=== PATIENT | female | born 1965 | race Caucasian/White ===

== ENCOUNTER 2018-09-14 16:49 | Inpatient (IN) ==
[2018-09-14] MEDS ORDERED: ONDANSETRON INJ 2 MG/ML 2 ML VIAL IV STA (17:24)
[2018-09-14] MEDS ORDERED: SODIUM CHLORIDE 0.9% 500 ML IV SCH (17:30)
[2018-09-14 17:56] LABS: Mean Corpuscular Hgb Conc 34.3 g/dL (32-36)
[2018-09-14 18:03] LABS: Albumin Level 2.5 gm/dl (3.4-5.0); BUN Creatinine Ratio 7.8 (10-20); Calcium 8.4 mg/dl (8.5-10.1); Creatinine Clr Calc Pharmacy 72.4 ml/min; Est GFR (African American) 98.4; Est GFR (Non-African American) 84.9
[2018-09-14 18:06] LABS: Albumin Globulin Ratio 0.5 (0.9-2); Bilirubin,Total 0.7 mg/dl (0.2-1); Globulin 4.8 gm/dl (2.5-4.0); Total Protein 7.3 gm/dl (6.4-8.2)
[2018-09-14 18:28] LABS: Hematocrit (blood only) 32.7 % (37-47); Hemoglobin 11.2 g/dL (12.0-16.0); Mean Corpuscular Hemoglobin 26.7 pg (25-34); Mean Corpuscular Volume 77.9 fL (80-100); RDW Coefficient of Variation 14.6 % (11.5-14.5); RDW Standard Deviation 41.2 fL (36.4-46.3); White Blood Count 7.23 K/uL (4.8-10.8)
[2018-09-14 18:29] LABS: Mean Platelet Volume 11.4 fL (7.4-10.4); Platelet Count 94 K/uL (130-400)
[2018-09-14 18:30] LABS: Basophils # (auto) 0.05 K/uL (0-0.2); Basophils % (auto) 0.7 %; Eosinophils # (auto) 0.02 K/uL (0-0.5); Eosinophils % (auto) 0.3 %; Immature Granulocytes % (auto) 4.1 %; Lymphocytes # (auto) 3.43 K/uL (1.2-3.4); Lymphocytes % (auto) 47.4 %; Monocytes # (auto) 1.16 K/uL (0.11-0.59); Neutrophils # (auto) 2.27 K/uL (1.4-6.5); Neutrophils % (auto) 31.5 %; Nucleated RBC % (auto) 1.4 %; Platelet Estimate Decreased (Normal)
[2018-09-14] MEDS ORDERED: IOVERSOL 100ml IV PRN (19:12)
--- NOTE | 2018-09-14 19:31 | CT Scan Report ---
ABDOMEN AND PELVIS CT WITH IV CONTRAST CT DOSE: 368.41 mGy.cm HISTORY: Generalized abdominal pain. TECHNIQUE: Multiaxial CT images of the abdomen and pelvis were performed following the use of intrave nous contrast. A dose lowering technique was utilized adhering to the principles of ALARA. COMPARISON STUDY: None. FINDINGS: A 4 mm subpleural nodule within the left lower lobe on image 73. Trace bilateral pleural ef fusions. No pneumoperitoneum. No pneumatosis. No suspicious lytic or blastic osseous lesions. The francesca er, spleen, adrenal glands, pancreas, and kidneys are unremarkable. No hydronephrosis. There is mild inflammatory change/edema at the gallbladder neck. There is also trace pericholecystic fluid. The gonzález n portal vein is patent. Normal caliber common bile duct. No retroperitoneal lymphadenopathy. The mohit dder is not well-distended but appears unremarkable. The uterus and bilateral adnexa are within maddie l limits. Trace pelvic free fluid which may be physiologic. No bowel wall thickening or obstruction. Normal appendix. IMPRESSION: 1. There is mild inflammatory change/edema at the gallbladder neck. There is also trace pericholecyst ic fluid. This is nonspecific and could be due to periportal edema in the setting of a diffuse edemat ous state given the trace bilateral pleural effusions. However, clinical correlation recommended to a ssess for the possibility of a developing acute cholecystitis. 2. No bowel wall thickening or obstruction. 3. Normal appendix. 4. Trace pelvic free fluid. This may be physiologic. 5. A 4 mm subpleural nodule within the left lower lobe. Please refer to below summary of Fleischner criteria recommendations for follow-up of incidental CT n odules (Marcus Engel, Guidelines for management of small pulmonary nodules detected on CT scans: A sta tement from the Fleischner Society, Radiology 237: [phone].) SOLID NODULES Solitary nodule size: <6 mm * Low risk patients: no follow-up needed * high risk patients: optional CT at 12 months Solitary nodule size: 6-8 mm * Low risk patients: follow-up at 6-12 months, then consider further follow-up at 18-24 months * high risk patients: initial follow-up CT at 6-12 months and then at 18-24 months if no change Solitary nodule size: >8 mm * either low or high risk patients - consider follow-up CT at 3 months, and/or CT-PET, and/or biopsy Multiple nodules size: <6 mm * Low risk patients: no routine follow-up * high risk patients: optional CT at 12 months Multiple nodules size: 6-8 mm * Low risk patients: follow-up at 3-6 months, then consider further follow-up at 18-24 months * high risk patients: follow-up at 3-6 months, then at 18-24 months if no change Multiple nodules size: >8 mm * Low risk patients: follow-up at 3-6 months, then consider further follow-up at 18-24 months * high risk patients: follow-up at 3-6 months, then at 18-24 months if no change Note: newly detected indeterminate nodule in persons 35 years of age or older. * Low risk patients: minimal or absent history of smoking and/or other known risk factors * high risk patients: history of smoking or of other known risk factors (e.g. first degree relative with lung cancer, or exposure to asbestos, radon, uranium) * if a nodule up to 8 mm is partly solid or is ground glass further follow-up is required after 24 m onths to exclude possible slow growing adenocarcinoma (ALFREDO) SUBSOLID NODULES Solitary pure ground-glass nodule * nodule size <6 mm - no CT follow-up required * nodule size >=6 mm - follow-up CT at 6-12 months, then every 2 years until 5 years Solitary part-solid nodule * nodule size <6 mm - no CT follow-up required * nodule size >=6 mm - follow-up CT at 3-6 months. If unchanged, and solid component remains <6 mm, then annual follow-up for 5 years Multiple subsolid nodules * nodule size <6 mm - follow-up CT at 3-6 months, consider further follow-up at 2 and 4 years if sta ble * nodule size >=6 mm - follow-up CT at 3-6 months, subsequent management based on the most suspiciou s nodule(s) Electronically signed by: Ej Justice M.D. 09/14/2018 7:30 PM
[2018-09-14] MEDS ORDERED: PIPERACILL/TAZOBAC CONSULT ACTIVE PRN (20:06)
[2018-09-14] MEDS ORDERED: PIPERACILLIN/TAZOBACTAM 4.5 GM/120 ML BAG IV ONE (20:06)
--- NOTE | 2018-09-14 20:20 | Surgery Consultation ---
Date of Consultation September 14, 2018 Assessment & Plan (1) Nausea & vomiting: Patient with nausea vomiting abdominal pain abnormal liver function studies with fever dermal white blood cell count And severe lethargy. Does not appear this is coming from severe acute cholecystitis. Is possibly more intrinsic paddock disease or common bile duct disease (likely ) also interesting is her thrombocytopenia. She is going to be admitted by the hospitalist most likely will need a GI evaluation. Could consider HIDA scan and MRCP but I will wait for thoughts from GI. History of Present Illness History of Present Illness Patient presents to the emergency room with 9 days of feeling ill. He has had nausea and vomiting for 5 to 6 days has developed lethargy. He does have some upper abdominal pain with right and left upper quadrant. Liver function studies including AST ALT Alk Phos and lipase are all elevated total bilirubin is normal. White blood cell count is normal he has no left shift. Apparently she has had fever over [address] scan shows periportal edema mild fluid. Gallbladder is not significantly distended minimal thickening. Allergies Allergy/AdvReac Type Severity Reaction Status Date / Time No Known Allergies Allergy Unverified 09/14/18 17:48 Home Medications Home Medications Medication Instructions Recorded Confirmed Type Diapro 30 mg PO QAM 09/14/18 09/14/18 History Domperidone 10 mg PO QAM 09/14/18 09/14/18 History amitriptyline 10 mg PO HS 09/14/18 09/14/18 History bisoprolol fumarate 5 mg PO DAILY 09/14/18 09/14/18 History cefixime 200 mg PO Q12H 09/14/18 09/14/18 History fluoxetine 20 mg PO DAILY 09/14/18 09/14/18 History lansoprazole 30 mg PO QAM 09/14/18 09/14/18 History metronidazole [Flagyl] 0 mg PO BID 09/14/18 09/14/18 History olmesartan 40 mg PO QPM 09/14/18 09/14/18 History ondansetron HCl [Zofran] 4 mg PO TID PRN 09/14/18 09/14/18 History sitagliptin-metformin 1 tab PO QPM 09/14/18 09/14/18 History Patient History Medical History Diabetes Hypertension Family History Other No pertinent family history in first degree relatives Social History Feels Safe at Home: Yes Smoking Status: Never smoker Review of Systems Review of Systems: All systems reviewed & are unremarkable except as noted in HPI & below Physical Exam Physical Exam: She is currently in her emergency room bed appears ill somewhat lethargic. Sclera are anicteric and appears normal color possibly pale mucous membranes are dry. He appears to be breathing comfortably Her heart rate is normal her abdomen is soft he does have some discomfort in the upper abdomen to palpation left greater than right. Results & Data Vital Signs (Past 12 Hours) Vital Signs Temp Pulse Pulse Resp BP BP Pulse Ox 09/14/18 19:51 62 17 112/74 96 09/14/18 17:47 95 09/14/18 17:46 63 18 155/72 H 96 09/14/18 17:02 37.2 C 83 20 134/78 97 I did review the CAT scan
[2018-09-14 20:34] LABS: Appearance Urine Clear (Clear); Bilirubin Urine Negative (Negative); Blood Urine Negative (Negative); Color Urine Yellow; Glucose Urine UA 2+ (Negative); Ketones Urine Negative (Negative); Leukocyte Esterase Urine Negative (Negative); Nitrite Urine Negative (Negative); Protein Urine Negative (Negative); Specific Gravity Urine 1.012 (1.000-1.030); Urobilinogen Urine Negative (Negative); pH Urine 7.5 (4.5-7.5)
[2018-09-14 20:38] LABS: Reticulocyte % 1.3 % (0.5-2.0); Reticulocytes # 0.06 10^6/uL (0.02-0.10)
[2018-09-14 20:47] LABS: Partial Thromboplastin Time 27.5 Seconds (21.0-31.0); Prothrombin Time 10.2 Seconds (9.0-12.0)
[2018-09-14 21:09] LABS: Magnesium 1.8 mg/dl (1.8-2.4); Thyroid Stimulating Hormone 2.52 uIu/ml (0.300-4.500)
--- NOTE | 2018-09-14 21:20 | History & Physical Report ---
Date of Service September 14, 2018 Assessment & Plan (1) Cholecystitis: known hx of gallbladder "sand" issues (? Biliary sludge) Leonel sepsis possibly being downplayed by outpatient antibiotic intake Differential dx : Salmonella (typhoid) infection given patient's country of origin Rule out choledocholithiasis given abnormal LFTs Rule out C. difficile hypertension, stable Hyponatremia, ARF secondary to illness Thrombocytopenia (? Duration) secondary to illness chronic anemia, hemoglobin better than baseline likely secondary to hemoconcentration DM 2 on oral meds, BSG is elevated, unknown baseline control Medical telemetry given hyponatremia Cultures Stool CS, stool C. difficile IV Cipro, Flagyl for now MRCP, abdominal pain, abnormal LFTs Surgery consult RE cholecystitis (ER provider already in touch with Dr. Lucas who recommends GI consultation for their input.) Monitor sodium, hold SSRI until serum sodium normal Baseline UA, monitor creatinine response to IV fluids, hold home ARB until creatinine at baseline anemia work-up Basal insulin, ISS BG goal 1 40-1 80, check hemoglobin A1c DVT prophylaxis. SCDs RE thrombocytopenia Full code Patient's daughter requesting updates from providers. Ms. Mili Villeda, contact #[phone]. History of Present Illness Chief Complaint: Abdominal pain, diarrhea Primary Care Provider: NO PCP History obtained from patient, family, and records. Limited history from patient secondary to communication barrier. Medical history significant for hypertension, DM 2 on oral meds, gallbladder disease as per daughter, chronic anemia (baseline hemoglobin of 10 as per patient), mood disorder Patient is visiting her daughter's family [place] from [facility]. Patient arrived last week and is going to be in the [place] for the next 3 months. Last year, patient developed abdominal pain symptoms attributed to gallbladder "sand" issues as per daughter. Antibiotics prescribed, no surgery recommended by physician as per family. Patient became sick a day after attending a [place] the [employer] last week. Achy upper abdominal pain associated with nausea vomiting, nonbloody diarrhea symptoms. Fever at home. Belly pain going to the chest and radiating to the back. No S OB. No headaches. Patient noted to be intermittently sleepy by family. No known sick contacts. No other sick family members/green party attendees to her knowledge. Patient self medicated with oral Cefixime prescribed by PCP from [facility] for patient to take as needed for any respiratory infections she may contract during her [place] vacation. At the ER, patient given Zosyn for cholecystitis. Allergies Allergy/AdvReac Type Severity Reaction Status Date / Time No Known Allergies Allergy Unverified 09/14/18 17:48 Home Medications Home Medications Medication Instructions Recorded Confirmed Type Diapro 30 mg PO QAM 09/14/18 09/14/18 History Domperidone 10 mg PO QAM 09/14/18 09/14/18 History amitriptyline 10 mg PO HS 09/14/18 09/14/18 History bisoprolol fumarate 5 mg PO DAILY 09/14/18 09/14/18 History cefixime 200 mg PO Q12H 09/14/18 09/14/18 History fluoxetine 20 mg PO DAILY 09/14/18 09/14/18 History lansoprazole 30 mg PO QAM 09/14/18 09/14/18 History metronidazole [Flagyl] 0 mg PO BID 09/14/18 09/14/18 History olmesartan 40 mg PO QPM 09/14/18 09/14/18 History ondansetron HCl [Zofran] 4 mg PO TID PRN 09/14/18 09/14/18 History sitagliptin-metformin 1 tab PO QPM 09/14/18 09/14/18 History Past Med/Surg History Medical History Diabetes Hypertension Family History Other Diabetes No pertinent family history in first degree relatives Social History Preferred Language: [facility] Communication Ability: Effective Educational/Development Assistant Required: No Beliefs That Will Affect Care: None Current Living Situation: Spouse Feels Safe at Home: Yes Safety Concerns: Feels Safe At This Time Smoking Status: Never smoker Hx Alcohol Use: No Hx Substance Use: No Review of Systems Review of Systems: Could not be reliably obtained Physical Exam Physical Exam: GENERAL: Slightly uncomfortable, no respiratory distress, looks younger for stated age SKIN: Pallor, warm HEENT: pale palpebral conjunctivae, no ptosis, dry buccal mucosa NECK : Supple, no tenderness CHEST : CTA, no tenderness HEART : RRR, no obvious murmurs ABDOMEN: Some distention, epigastric tenderness EXTREMITIES : No LE swelling/tenderness, no other conspicuous deformities noted NEUROLOGIC : Coherent, no facial asymmetry, no other gross focality Results & Data Vital Signs (Past 12 Hours) Vital Signs Temp Pulse Pulse Resp BP BP Pulse Ox 09/14/18 19:51 62 17 112/74 96 09/14/18 17:47 95 09/14/18 17:46 63 18 155/72 H 96 09/14/18 17:02 37.2 C 83 20 134/78 97 Laboratory Results Laboratory Results WBC 7.23 K/uL (4.8-10.8) 09/14/18 17:33 RBC 4.20 M/uL (4.2-5.4) 09/14/18 17:33 Hgb 11.2 g/dL (12.0-16.0) L 09/14/18 17:33 Hct 32.7 % (37-47) L 09/14/18 17:33 MCV 77.9 fL (80-100) L 09/14/18 17:33 MCH 26.7 pg (25-34) 09/14/18 17:33 MCHC 34.3 g/dL (32-36) 09/14/18 17:33 RDW Std Deviation 41.2 fL (36.4-46.3) 09/14/18 17:33 RDW Coeff of Pk 14.6 % (11.5-14.5) H 09/14/18 17:33 Plt Count 94 K/uL (130-400) L 09/14/18 17:33 MPV 11.4 fL (7.4-10.4) H 09/14/18 17:33 Immature Gran % (Auto) 4.1 % 09/14/18 17:33 Neut % (Auto) 31.5 % 09/14/18 17:33 Lymph % (Auto) 47.4 % 09/14/18 17:33 Gilmer % (Auto) 16.0 % 09/14/18 17:33 Eos % (Auto) 0.3 % 09/14/18 17:33 Baso % (Auto) 0.7 % 09/14/18 17:33 Reticulocyte % (Auto) 1.3 % (0.5-2.0) 09/14/18 17:33 Immature Gran # (Auto) 0.30 K/uL (0.00-0.02) H 09/14/18 17:33 Neut # (Auto) 2.27 K/uL (1.4-6.5) 09/14/18 17:33 Lymph # (Auto) 3.43 K/uL (1.2-3.4) H 09/14/18 17:33 Gilmer # (Auto) 1.16 K/uL (0.11-0.59) H 09/14/18 17:33 Eos # (Auto) 0.02 K/uL (0-0.5) 09/14/18 17:33 Baso # (Auto) 0.05 K/uL (0-0.2) 09/14/18 17:33 Reticulocyte # 0.06 10^6/uL (0.02-0.10) 09/14/18 17:33 Absolute Nucleated RBC 0.10 K/uL (0-0) H 09/14/18 17:33 Nucleated RBC % (auto) 1.4 % 09/14/18 17:33 Platelet Estimate Decreased (Normal) L 09/14/18 17:33 PT 10.2 Seconds (9.0-12.0) 09/14/18 20:27 INR 1.0 (0.9-1.1) 09/14/18 20:27 APTT 27.5 Seconds (21.0-31.0) 09/14/18 20:27 PTT Ratio 1.0 09/14/18 20:27 Sodium 129 mmol/L (136-145) L 09/14/18 17:33 Potassium 4.0 mmol/L (3.5-5.1) 09/14/18 17:33 Chloride 95 mmol/L (98-107) L 09/14/18 17:33 Carbon Dioxide 27 mmol/L (21-32) 09/14/18 17:33 Anion Gap 7.0 (3-11) 09/14/18 17:33 BUN 6 mg/dl (7-18) L 09/14/18 17:33 Creatinine 0.79 mg/dl (0.6-1.2) 09/14/18 17:33 Est Cr Clr Drug Dosing 72.4 ml/min 09/14/18 17:33 Est GFR ( Amer) 98.4 09/14/18 17:33 Est GFR (Non-Af Amer) 84.9 09/14/18 17:33 BUN/Creatinine Ratio 7.8 (10-20) L 09/14/18 17:33 Glucose 260 mg/dl (70-99) H 09/14/18 17:33 Osmolality 280 mOsm/kg (280-300) 09/14/18 20:02 Calcium 8.4 mg/dl (8.5-10.1) L 09/14/18 17:33 Magnesium 1.8 mg/dl (1.8-2.4) 09/14/18 17:33 Magnesium Cancelled 09/14/18 17:33 Iron 34 mcg/dl (35-150) L 09/14/18 17:33 Iron Cancelled 09/14/18 17:33 TIBC 328 mcg/dl (250-450) 09/14/18 17:33 TIBC Cancelled 09/14/18 17:33 Transferrin 254 mg/dl (200-360) 09/14/18 17:33 Transferrin Cancelled 09/14/18 17:33 Ferritin Cancelled 09/14/18 17:33 Total Bilirubin 0.7 mg/dl (0.2-1) 09/14/18 17:33 AST 410 U/L (15-37) H 09/14/18 17:33 ALT 338 U/L (12-78) H 09/14/18 17:33 Alkaline Phosphatase 287 U/L (45-117) H 09/14/18 17:33 Total Protein 7.3 gm/dl (6.4-8.2) 09/14/18 17:33 Albumin 2.5 gm/dl (3.4-5.0) L 09/14/18 17:33 Globulin 4.8 gm/dl (2.5-4.0) H 09/14/18 17:33 Albumin/Globulin Ratio 0.5 (0.9-2) L 09/14/18 17:33 Lipase 460 U/L (73-393) H 09/14/18 17:33 TSH 2.520 uIu/ml (0.300-4.500) 09/14/18 17:33 TSH Cancelled 09/14/18 17:33 Urine Color Yellow 09/14/18 18:59 Urine Appearance Clear (Clear) 09/14/18 18:59 Urine pH 7.5 (4.5-7.5) 09/14/18 18:59 Ur Specific Ke[place] 1.012 (1.000-1.030) 09/14/18 18:59 Urine Protein Negative (Negative) 09/14/18 18:59 Urine Glucose (UA) 2+ (Negative) H 09/14/18 18:59 Urine Ketones Negative (Negative) 09/14/18 18:59 Urine Blood Negative (Negative) 09/14/18 18:59 Urine Nitrite Negative (Negative) 09/14/18 18:59 Urine Bilirubin Negative (Negative) 09/14/18 18:59 Urine Urobilinogen Negative (Negative) 09/14/18 18:59 Ur Leukocyte Esterase Negative (Negative) 09/14/18 18:59 Urine Osmolality 338 mOsm/kg (500-800) L 09/14/18 18:59 Ur Random Sodium 78 mmol/L 09/14/18 18:59 Stl C. diff Tox B Gene TNP 09/14/18 18:59 Blood Type A Negative 09/14/18 20:27 Antibody Screen NEGATIVE 09/14/18 20:[address] abdomen pelvis: 1. There is mild inflammatory change/edema at the gallbladder neck. There is also trace pericholecystic fluid. This is nonspecific and could be due to periportal edema in the setting of a diffuse edematous state given the trace bilateral pleural effusions. However, clinical correlation recommended to assess for the possibility of a developing acute cholecystitis. 2. No bowel wall thickening or obstruction. 3. Normal appendix. 4. Trace pelvic free fluid. This may be physiologic. 5. A 4 mm subpleural nodule within the left lower lobe. Please refer to below summary of Fleischner criteria recommendations for follow- up of incidental CT nodules (Marcus Engel, Guidelines for management of small pulmonary nodules detected on CT scans: A statement from the Fleischner Society, Radiology 237: [phone].) SOLID NODULES Solitary nodule size: <6 mm * Low risk patients: no follow-up needed * high risk patients: optional CT at 12 months Solitary nodule size: 6-8 mm * Low risk patients: follow-up at 6-12 months, then consider further follow-up at 18-24 months * high risk patients: initial follow-up CT at 6-12 months and then at 18-24 months if no change Solitary nodule size: >8 mm * either low or high risk patients - consider follow-up CT at 3 months, and/or CT-PET, and/or biopsy Multiple nodules size: <6 mm * Low risk patients: no routine follow-up * high risk patients: optional CT at 12 months Multiple nodules size: 6-8 mm * Low risk patients: follow-up at 3-6 months, then consider further follow-up at 18-24 months * high risk patients: follow-up at 3-6 months, then at 18-24 months if no change Multiple nodules size: >8 mm * Low risk patients: follow-up at 3-6 months, then consider further follow-up at 18-24 months * high risk patients: follow-up at 3-6 months, then at 18-24 months if no change Note: newly detected indeterminate nodule in persons 35 years of age or older. * Low risk patients: minimal or absent history of smoking and/or other known risk factors * high risk patients: history of smoking or of other known risk factors (e.g. first degree relative with lung cancer, or exposure to asbestos, radon, uranium) * if a nodule up to 8 mm is partly solid or is ground glass further follow-up is required after 24 months to exclude possible slow growing adenocarcinoma (ALFREDO) SUBSOLID NODULES Solitary pure ground-glass nodule * nodule size <6 mm - no CT follow-up required * nodule size >=6 mm - follow-up CT at 6-12 months, then every 2 years until 5 years Solitary part-solid nodule * nodule size <6 mm - no CT follow-up required * nodule size >=6 mm - follow-up CT at 3-6 months. If unchanged, and solid component remains <6 mm, then annual follow-up for 5 years Multiple subsolid nodules * nodule size <6 mm - follow-up CT at 3-6 months, consider further follow-up at 2 and 4 years if stable * nodule size >=6 mm - follow-up CT at 3-6 months, subsequent management based on the most suspicious nodule(s) CT head: 1. No acute intracranial abnormality. 2. Acute on chronic sphenoid sinusitis. Chest x-ray: Trace bilateral pleural effusions. Otherwise, no acute process within the chest. EKG as per my interpretation rate 55, sinus bradycardia, T wave inversion septal leads
--- NOTE | 2018-09-14 21:22 | Emergency Department Note ---
Entered by Fahad Maguire acting as a scribe for Fransisco Farr MD History of Present Illness General Chief complaint: Fever Stated complaint: FEVER Source: family History of Present Illness Provider complaint: Fever Onset (ago): day(s) 5 Location: abdomen Radiation: back Pain Consistency: + constant Maximum Pain Intensity: 0 Relieved By: + none Exacerbated By: + none Associated symptoms: + fever/chills, + loss of appetite, + nausea/vomiting and + other (Positive diarrhea) The patient is a 53 year old female who presents to the Emergency Room with complaints of a constant fever over the past 5 days, per the daughter. She notes that the patient is her mother who is visiting from [facility]. She has been here since August 28 and on September 03 they went to [facility] for a constitution party. Shortly after the constitution party the patient started having diarrhea and vomiting. About 4 days after the onset of those symptoms, the patient developed the fever. The fever has been running around 101F-103F but her daughter notes Tylenol helps decrease it. The last time she had a fever was 3 days ago. After a few days of symptoms, the patient started having abdominal pain that radiates to her back. The patient's daughter also notes she has not been eating much over the past 9 days, because she is having trouble keeping food down. She has been drinking water and saline solution. For the diarrhea, the patient has taken medication she brought from her home country and it did help, but once she stopped taking it she started having diarrhea again. The daughter states the diarrhea was initially yellowish but not necessarily greasy or difficult to flush. Per the daughter, the patient was not on any antibiotics prior to the onset of her symptoms, but has now been on Cefixime for the past 4 days. She had the cefixime from her home country and her doctor advised her to start taking it when her fever started. The patient denies any hematemesis or hematochezia as well as being around anyone with similar symptoms. She also mentioned that no one else at the constitution party has gotten sick with similar symptoms. She has a history of hypertension and diabetes. The entire history was given by the patient's daughter due to a language barrier. Home Medications Home Medications Medication Instructions Recorded Confirmed Type Diapro 30 mg PO QAM 09/14/18 09/14/18 History Domperidone 10 mg PO QAM 09/14/18 09/14/18 History amitriptyline 10 mg PO HS 09/14/18 09/14/18 History bisoprolol fumarate 5 mg PO DAILY 09/14/18 09/14/18 History cefixime 200 mg PO Q12H 09/14/18 09/14/18 History fluoxetine 20 mg PO DAILY 09/14/18 09/14/18 History lansoprazole 30 mg PO QAM 09/14/18 09/14/18 History metronidazole [Flagyl] 0 mg PO BID 09/14/18 09/14/18 History olmesartan 40 mg PO QPM 09/14/18 09/14/18 History ondansetron HCl [Zofran] 4 mg PO TID PRN 09/14/18 09/14/18 History sitagliptin-metformin 1 tab PO QPM 09/14/18 09/14/18 History Allergies Allergy/AdvReac Type Severity Reaction Status Date / Time No Known Allergies Allergy Unverified 09/14/18 17:48 Past Med/Surg History Medical History Diabetes Hypertension Family History Other No pertinent family history in first degree relatives Social History Feels Safe at Home: Yes Smoking Status: Never smoker Review of Systems See HPI for pertinent positives & negatives. and A total of 10 systems reviewed and were otherwise negative Physical Exam Vital Signs Vital Signs - 24 hr 09/14/18 17:02 09/14/18 17:46 09/14/18 17:47 Temperature 37.2 C Temperature Source Oral Sepsis Recent Fever Within 48 Hours No Sepsis Action Taken by Nursing No Action Required Pulse Rate 83 Pulse Rate [Finger] 63 Pulse Rhythm Regular Pulse Strength Normal Respiratory Rate 20 18 Respiratory Effort / Characteristics Non-Labored Spontaneous Respiratory Depth Normal Respiratory Pattern Regular Blood Pressure 134/78 Blood Pressure [Left Arm] 155/72 H Blood Pressure Mean 96 Blood Pressure Mean [Left Arm] 99 Blood Pressure Position [Left Arm] Sitting Pulse Oximetry 97 96 95 Oxygen Delivery Method Room Air Room Air Room Air 09/14/18 19:51 Temperature Temperature Source Sepsis Recent Fever Within 48 Hours Sepsis Action Taken by Nursing Pulse Rate Pulse Rate [Finger] 62 Pulse Rhythm Pulse Strength Respiratory Rate 17 Respiratory Effort / Characteristics Respiratory Depth Respiratory Pattern Blood Pressure Blood Pressure [Left Arm] 112/74 Blood Pressure Mean Blood Pressure Mean [Left Arm] 86 Blood Pressure Position [Left Arm] Pulse Oximetry 96 Oxygen Delivery Method Room Air Constitutional: Vital signs reviewed. Eyes: Pupils are equal round reactive to light. Conjunctiva are noninjected. ENT: Pharynx is clear without erythema or exudate. Mucous membranes are dry. Neck supple without meningeal signs. Respiratory: Clear to auscultation bilaterally. Breath sounds are equal bilaterally. Cardiovascular: Regular rate and rhythm. No rubs or gallops. GI: Soft, nondistended. Right upper quadrant tenderness without Mejia sign. Lower abdominal tenderness with no guarding. Bowel sounds are present. Musculoskeletal: No peripheral edema. No lower extremity tenderness. Integumentary: No cyanosis. Neurological: The patient is awake and alert. No focal deficits. Psychiatric: Unable to assess. Course 171: Past medical records reviewed. The patient was evaluated in room B04B, and a complete history and physical examination were performed. 1944: I reevaluated the patient and she states she still does not feel well. On repeat exam she still had RUQ tenderness with no Mejia's sign. The daughter did inform that about a year ago the patient had small stones in her Gallbladder. She was treated with medication and at her follow up appointment the ultrasound showed no stones. 1952: I spoke to Dr. Lucas - Surgery about the patient's case and he is going to evaluate her. 1999: Dr. Lucas evaluated the CT images and labs and would like for me to consult with medicine. Genevieve was paged. 2012: I spoke to Dr. Talha Jacobsen about the patient's case and he is going to accept her for further evaluation. Consultations Consultation #1: I spoke to Dr. Lucas - General Surgery about the patient's case and he is going to evaluate her. Time: 19:53 Consultation #2: Dr. Lucas evaluated the CT images and labs and would like for me to consult with medicine. Genevieve was paged. Time: 20:00 Consultation #3: I spoke to Dr. Talha Jacobsen about the patient's case and he is going to accept her for further evaluation. Time: 20:13 Administered Medications Ioversol (Optiray 320 100ml) 91 ml IV ONCE PRN PRN Reason: Interaction Checking Stop: 09/18/18 19:11 Last Admin: 09/14/18 19:12 Dose: 91 ml Documented by: [id number] Discontinued Medications Sodium Chloride (Nss) 500 mls @ 999 mls/hr IV .Q31M FLORENCIO Stop: 09/14/18 18:00 Last Infusion: 09/14/18 18:26 Dose: 0 mls/hr Documented by: [id number] Admin: 09/14/18 17:42 Dose: 999 mls/hr Documented by: [id number] Piperacillin Sod/Tazobactam Sod (Zosyn) 4.5 gm in 120 mls @ 240 mls/hr IV NOW ONE Stop: 09/14/18 20:35 Last Infusion: 09/14/18 20:56 Dose: 0 mls/hr Documented by: [id number] Admin: 09/14/18 20:21 Dose: 240 mls/hr Documented by: [id number] Ondansetron HCl (Zofran) 4 mg IV NOW STA Stop: 09/14/18 17:25 Last Admin: 09/14/18 17:40 Dose: 4 mg Documented by: [id number] Medical Decision Making Differential Diagnosis Differential Diagnosis includes: Food borne illness, C. Diff, gastroenteritis, diverticulitis, and colitis, amongst others. Medical Records Attestation: I reviewed the patient's medical records. I did perform a limited focused review of portions of the patient's old chart on the electronic medical record. The patient has had no recent pertinent visits to this hospital. Home Medications Current Medication List: was personally reviewed by me Laboratory Data Attestation: I reviewed the patient's lab results. Result diagrams: 09/14/18 17:33 09/14/18 17:33 Lab Results 09/14/18 09/14/18 09/14/18 Range/Units 17:33 17:33 17:33 WBC 7.23 (4.8-10.8) K/uL RBC 4.20 (4.2-5.4) M/uL Hgb 11.2 L (12.0-16.0) g/dL Hct 32.7 L (37-47) % MCV 77.9 L (80-100) fL MCH 26.7 (25-34) pg MCHC 34.3 (32-36) g/dL RDW Std Deviation 41.2 (36.4-46.3) fL RDW Coeff of Pk 14.6 H (11.5-14.5) % Plt Count 94 L (130-400) K/uL MPV 11.4 H (7.4-10.4) fL Immature Gran % (Auto) 4.1 % Neut % (Auto) 31.5 % Lymph % (Auto) 47.4 % Ramsey % (Auto) 16.0 % Eos % (Auto) 0.3 % Baso % (Auto) 0.7 % Reticulocyte % (Auto) 1.3 (0.5-2.0) % Immature Gran # (Auto) 0.30 H (0.00-0.02) K/uL Neut # (Auto) 2.27 (1.4-6.5) K/uL Lymph # (Auto) 3.43 H (1.2-3.4) K/uL Ramsey # (Auto) 1.16 H (0.11-0.59) K/uL Eos # (Auto) 0.02 (0-0.5) K/uL Baso # (Auto) 0.05 (0-0.2) K/uL Reticulocyte # 0.06 (0.02-0.10) 10^6/uL Absolute Nucleated RBC 0.10 H (0-0) K/uL Nucleated RBC % (auto) 1.4 % Platelet Estimate Decreased L (Normal) PT (9.0-12.0) Seconds INR (0.9-1.1) APTT (21.0-31.0) Seconds PTT Ratio Sodium 129 L (136-145) mmol/L Potassium 4.0 (3.5-5.1) mmol/L Chloride 95 L (98-107) mmol/L Carbon Dioxide 27 (21-32) mmol/L Anion Gap 7.0 (3-11) BUN 6 L (7-18) mg/dl Creatinine 0.79 (0.6-1.2) mg/dl Est Cr Clr Drug Dosing 72.4 ml/min Est GFR ( Amer) 98.4 Est GFR (Non-Af Amer) 84.9 BUN/Creatinine Ratio 7.8 L (10-20) Glucose 260 H (70-99) mg/dl Calcium 8.4 L (8.5-10.1) mg/dl Magnesium 1.8 Cancelled (1.8-2.4) mg/dl Iron 34 L Cancelled (35-150) mcg/dl TIBC 328 Cancelled (250-450) mcg/dl Transferrin 254 Cancelled (200-360) mg/dl Ferritin Cancelled Total Bilirubin 0.7 (0.2-1) mg/dl AST 410 H (15-37) U/L ALT 338 H (12-78) U/L Alkaline Phosphatase 287 H (45-117) U/L Total Protein 7.3 (6.4-8.2) gm/dl Albumin 2.5 L (3.4-5.0) gm/dl Globulin 4.8 H (2.5-4.0) gm/dl Albumin/Globulin Ratio 0.5 L (0.9-2) Lipase 460 H (73-393) U/L TSH 2.520 Cancelled (0.300-4.500) uIu/ml Urine Color Urine Appearance (Clear) Urine pH (4.5-7.5) Ur Specific [place] (1.000-1.030) Urine Protein (Negative) Urine Glucose (UA) (Negative) Urine Ketones (Negative) Urine Blood (Negative) Urine Nitrite (Negative) Urine Bilirubin (Negative) Urine Urobilinogen (Negative) Ur Leukocyte Esterase (Negative) Urine Osmolality (500-800) mOsm/kg Ur Random Sodium mmol/L Stl C. diff Tox B Gene 09/14/18 09/14/18 09/14/18 Range/Units 18:59 18:59 18:59 WBC (4.8-10.8) K/uL RBC (4.2-5.4) M/uL Hgb (12.0-16.0) g/dL Hct (37-47) % MCV (80-100) fL MCH (25-34) pg MCHC (32-36) g/dL RDW Std Deviation (36.4-46.3) fL RDW Coeff of Pk (11.5-14.5) % Plt Count (130-400) K/uL MPV (7.4-10.4) fL Immature Gran % (Auto) % Neut % (Auto) % Lymph % (Auto) % Ramsey % (Auto) % Eos % (Auto) % Baso % (Auto) % Reticulocyte % (Auto) (0.5-2.0) % Immature Gran # (Auto) (0.00-0.02) K/uL Neut # (Auto) (1.4-6.5) K/uL Lymph # (Auto) (1.2-3.4) K/uL Ramsey # (Auto) (0.11-0.59) K/uL Eos # (Auto) (0-0.5) K/uL Baso # (Auto) (0-0.2) K/uL Reticulocyte # (0.02-0.10) 10^6/uL Absolute Nucleated RBC (0-0) K/uL Nucleated RBC % (auto) % Platelet Estimate (Normal) PT (9.0-12.0) Seconds INR (0.9-1.1) APTT (21.0-31.0) Seconds PTT Ratio Sodium (136-145) mmol/L Potassium (3.5-5.1) mmol/L Chloride (98-107) mmol/L Carbon Dioxide (21-32) mmol/L Anion Gap (3-11) BUN (7-18) mg/dl Creatinine (0.6-1.2) mg/dl Est Cr Clr Drug Dosing ml/min Est GFR ( Amer) Est GFR (Non-Af Amer) BUN/Creatinine Ratio (10-20) Glucose (70-99) mg/dl Calcium (8.5-10.1) mg/dl Magnesium (1.8-2.4) mg/dl Iron (35-150) mcg/dl TIBC (250-450) mcg/dl Transferrin (200-360) mg/dl Ferritin Total Bilirubin (0.2-1) mg/dl AST (15-37) U/L ALT (12-78) U/L Alkaline Phosphatase (45-117) U/L Total Protein (6.4-8.2) gm/dl Albumin (3.4-5.0) gm/dl Globulin (2.5-4.0) gm/dl Albumin/Globulin Ratio (0.9-2) Lipase (73-393) U/L TSH (0.300-4.500) uIu/ml Urine Color Urine Appearance (Clear) Urine pH (4.5-7.5) Ur Specific [place] (1.000-1.030) Urine Protein (Negative) Urine Glucose (UA) (Negative) Urine Ketones (Negative) Urine Blood (Negative) Urine Nitrite (Negative) Urine Bilirubin (Negative) Urine Urobilinogen (Negative) Ur Leukocyte Esterase (Negative) Urine Osmolality 338 L (500-800) mOsm/kg Ur Random Sodium 78 mmol/L Stl C. diff Tox B Gene TNP 09/14/18 09/14/18 Range/Units 18:59 20:27 WBC (4.8-10.8) K/uL RBC (4.2-5.4) M/uL Hgb (12.0-16.0) g/dL Hct (37-47) % MCV (80-100) fL MCH (25-34) pg MCHC (32-36) g/dL RDW Std Deviation (36.4-46.3) fL RDW Coeff of Pk (11.5-14.5) % Plt Count (130-400) K/uL MPV (7.4-10.4) fL Immature Gran % (Auto) % Neut % (Auto) % Lymph % (Auto) % Ramsey % (Auto) % Eos % (Auto) % Baso % (Auto) % Reticulocyte % (Auto) (0.5-2.0) % Immature Gran # (Auto) (0.00-0.02) K/uL Neut # (Auto) (1.4-6.5) K/uL Lymph # (Auto) (1.2-3.4) K/uL Ramsey # (Auto) (0.11-0.59) K/uL Eos # (Auto) (0-0.5) K/uL Baso # (Auto) (0-0.2) K/uL Reticulocyte # (0.02-0.10) 10^6/uL Absolute Nucleated RBC (0-0) K/uL Nucleated RBC % (auto) % Platelet Estimate (Normal) PT 10.2 (9.0-12.0) Seconds INR 1.0 (0.9-1.1) APTT 27.5 (21.0-31.0) Seconds PTT Ratio 1.0 Sodium (136-145) mmol/L Potassium (3.5-5.1) mmol/L Chloride (98-107) mmol/L Carbon Dioxide (21-32) mmol/L Anion Gap (3-11) BUN (7-18) mg/dl Creatinine (0.6-1.2) mg/dl Est Cr Clr Drug Dosing ml/min Est GFR ( Amer) Est GFR (Non-Af Amer) BUN/Creatinine Ratio (10-20) Glucose (70-99) mg/dl Calcium (8.5-10.1) mg/dl Magnesium (1.8-2.4) mg/dl Iron (35-150) mcg/dl TIBC (250-450) mcg/dl Transferrin (200-360) mg/dl Ferritin Total Bilirubin (0.2-1) mg/dl AST (15-37) U/L ALT (12-78) U/L Alkaline Phosphatase (45-117) U/L Total Protein (6.4-8.2) gm/dl Albumin (3.4-5.0) gm/dl Globulin (2.5-4.0) gm/dl Albumin/Globulin Ratio (0.9-2) Lipase (73-393) U/L TSH (0.300-4.500) uIu/ml Urine Color Yellow Urine Appearance Clear (Clear) Urine pH 7.5 (4.5-7.5) Ur Specific [place] 1.012 (1.000-1.030) Urine Protein Negative (Negative) Urine Glucose (UA) 2+ H (Negative) Urine Ketones Negative (Negative) Urine Blood Negative (Negative) Urine Nitrite Negative (Negative) Urine Bilirubin Negative (Negative) Urine Urobilinogen Negative (Negative) Ur Leukocyte Esterase Negative (Negative) Urine Osmolality (500-800) mOsm/kg Ur Random Sodium mmol/L Stl C. diff Tox B Gene Imaging Data Radiologist's Impression: Radiology results as stated below per my review and the radiologist's interpretation: ABDOMEN AND PELVIS CT WITH IV CONTRAST CT DOSE: 368.41 mGy.cm HISTORY: Generalized abdominal pain. TECHNIQUE: Multiaxial CT images of the abdomen and pelvis were performed following the use of intravenous contrast. A dose lowering technique was utilized adhering to the principles of ALARA. COMPARISON STUDY: None. FINDINGS: A 4 mm subpleural nodule within the left lower lobe on image 73. Trace bilateral pleural effusions. No pneumoperitoneum. No pneumatosis. No suspicious lytic or blastic osseous lesions. The liver, spleen, adrenal glands, pancreas, and kidneys are unremarkable. No hydronephrosis. There is mild inflammatory change/edema at the gallbladder neck. There is also trace pericholecystic fluid. The main portal vein is patent. Normal caliber common bile duct. No retroperitoneal lymphadenopathy. The bladder is not well-distended but appears unremarkable. The uterus and bilateral adnexa are within normal limits. Trace pelvic free fluid which may be physiologic. No bowel wall thickening or obstruction. Normal appendix. IMPRESSION: 1. There is mild inflammatory change/edema at the gallbladder neck. There is also trace pericholecystic fluid. This is nonspecific and could be due to periportal edema in the setting of a diffuse edematous state given the trace bilateral pleural effusions. However, clinical correlation recommended to assess for the possibility of a developing acute cholecystitis. 2. No bowel wall thickening or obstruction. 3. Normal appendix. 4. Trace pelvic free fluid. This may be physiologic. 5. A 4 mm subpleural nodule within the left lower lobe. Please refer to below summary of Fleischner criteria recommendations for follow- up of incidental CT nodules (Marcus Engel, Guidelines for management of small pulmonary nodules detected on CT scans: A statement from the Fleischner Society, Radiology 237: [phone].) SOLID NODULES Solitary nodule size: <6 mm * Low risk patients: no follow-up needed * high risk patients: optional CT at 12 months Solitary nodule size: 6-8 mm * Low risk patients: follow-up at 6-12 months, then consider further follow-up at 18-24 months * high risk patients: initial follow-up CT at 6-12 months and then at 18-24 months if no change Solitary nodule size: >8 mm * either low or high risk patients - consider follow-up CT at 3 months, and/or CT-PET, and/or biopsy Multiple nodules size: <6 mm * Low risk patients: no routine follow-up * high risk patients: optional CT at 12 months Multiple nodules size: 6-8 mm * Low risk patients: follow-up at 3-6 months, then consider further follow-up at 18-24 months * high risk patients: follow-up at 3-6 months, then at 18-24 months if no change Multiple nodules size: >8 mm * Low risk patients: follow-up at 3-6 months, then consider further follow-up at 18-24 months * high risk patients: follow-up at 3-6 months, then at 18-24 months if no ch rc Note: newly detected indeterminate nodule in persons 35 years of age or older. * Low risk patients: minimal or absent history of smoking and/or other known risk factors * high risk patients: history of smoking or of other known risk factors (e.g. first degree relative with lung cancer, or exposure to asbestos, radon, uranium) * if a nodule up to 8 mm is partly solid or is ground glass further follow-up is required after 24 months to exclude possible slow growing adenocarcinoma (ALFREDO) SUBSOLID NODULES Solitary pure ground-glass nodule * nodule size <6 mm - no CT follow-up required * nodule size >=6 mm - follow-up CT at 6-12 months, then every 2 years until 5 years Solitary part-solid nodule * nodule size <6 mm - no CT follow-up required * nodule size >=6 mm - follow-up CT at 3-6 months. If unchanged, and solid component remains <6 mm, then annual follow-up for 5 years Multiple subsolid nodules * nodule size <6 mm - follow-up CT at 3-6 months, consider further follow-up at 2 and 4 years if stable * nodule size >=6 mm - follow-up CT at 3-6 months, subsequent management based on the most suspicious nodule(s) Electronically signed by: Ej Justice M.D. 09/14/2018 7:30 PM Blood Pressure Blood Pressure Findings: Normal blood pressure MDM Narrative I did evaluate the patient as noted above. The patient is presenting with vomiting and diarrhea with fever. She also complains of abdominal pain in the lower abdomen but also has tenderness in the right upper quadrant. I did obtain history from the patient's daughter as well as the patient with her daughter acting as a cane loader. IV access was established. The patient was placed on a continuous night monitor. I did treat her with normal saline IV. She was also given Zofran IV. I did order stool testing. I did order a urine analysis. There is no evidence of infection. I did order and review the patient's blood work as noted in the electronic medical record. She has a number of abnormalities. She is thrombocytopenic. She has anemia. Her sodium is 129. LFTs are elevated although bilirubin is normal. Lipase is slightly elevated as well. I did order a CT of the abdomen and pelvis. I did review the images myself as well as the radiology report as described above. The CAT scan was concerning for possible cholecystitis. There was some inflammation around the gallbladder neck as well as pericholecystic fluid. I did reexamine the patient. She does have continued tenderness in the right upper quadrant but no Mejia sign. I did discuss the test results with the patient. I did order hepatitis panel. I did discuss the case with Dr. Lucas of surgery. He reviewed the CT scan and lab work and recommended that the patient be admitted by the medical service. He will see the patient as a systems consultant. I did discuss the case with Dr. Palencia and the piano case and bench assembler. Impression & Plan Gallbladder disease, Hyponatremia, Anemia, Abnormal LFTs, Dehydration, Thrombocytopenia Discharge Plan Visit Data Chief Complaint: Fever Stated Complaint: FEVER ED Provider: Fransisco Farr Discharge Problem: Gallbladder disease, Hyponatremia, Anemia, Abnormal LFTs, Dehydration, Thrombocytopenia Patient Disposition: Being Evaluated by Hospitalist Forms Stand Alone Forms: My [facility] Prescriptions Prescriptions: No Action bisoprolol fumarate 5 mg Tablet 5 mg PO DAILY RF: 0 fluoxetine 20 mg Tablet 20 mg PO DAILY RF: 0 lansoprazole 30 mg Capsule,Delayed Release(Dr/Ec) 30 mg PO QAM RF: 0 metronidazole [Flagyl] 375 mg Capsule PO BID RF: 0 cefixime 200 mg Tablet,Chewable 200 mg PO Q12H RF: 0 Diapro 30 mg PO QAM RF: 0 Domperidone 10 mg PO QAM RF: 0 ondansetron HCl [Zofran] 4 mg Tablet 4 mg PO TID PRN (Reason: Nausea) RF: 0 amitriptyline 10 mg Tablet 10 mg PO HS RF: 0 olmesartan 40 mg Tablet 40 mg PO QPM RF: 0 sitagliptin-metformin 50-1,000 mg Tablet 1 tab PO QPM RF: 0 Referrals Referrals: PCP,NO [Primary Care Provider] - Discharge Problem: Anemia Qualifiers: Anemia type: unspecified type Qualified Code(s): D64.9 - Anemia, unspecified The scribe's documentation has been prepared under my direction and personally reviewed by me in its entirety. I confirm that the note above accurately reflects all work, treatment, procedures, and medical decision making performed by me.
[2018-09-14] MEDS ORDERED: HYDROmorphone INJ 0.5 MG/0.5 ML SYR IV STA (21:35)
--- NOTE | 2018-09-14 21:56 | XRay Report ---
XR chest 1V portable HISTORY: Atypical chest pain. COMPARISON: None. FINDINGS: Cardiac silhouette is top normal in size. A few left basilar linear densities consistent wi th subsegmental atelectasis. Otherwise, the lungs are clear. No pneumothorax. Trace bilateral pleural effusions. IMPRESSION: Trace bilateral pleural effusions. Otherwise, no acute process within the chest. Electronically signed by: Ej Justice M.D. 09/14/2018 9:53 PM
[2018-09-14 22:01] LABS: Sodium 132 mmol/L (136-145)
[2018-09-14 22:05] LABS: Acetaminophen < 2 ug/ml (10-30); Salicylate < 1.7 mg/dl (2.8-20)
[2018-09-14 22:10] LABS: Troponin I < 0.015 ng/ml (0-0.045)
--- NOTE | 2018-09-14 22:13 | CT Scan Report ---
HEAD CT NONCONTRAST CT DOSE: 537.48 mGy.cm HISTORY: Filter minimal status. TECHNIQUE: Multiaxial CT images of the head were performed without the use of intravenous contrast. A utomated exposure control was utilized for this study. A dose lowering technique was utilized adheri ng to the principles of ALARA. Comparison: None. Findings: Fluid levels within the sphenoid sinuses resulting in partial opacification. Partially opac ified left ethmoid air cell. The mastoid air cells are clear. There is also mild mucosal thickening w ithin the sphenoid sinuses with surrounding bony sclerosis. The calvarium and skull base are intact. The ventricles and sulci are within normal limits. There is no mass, hematoma, midline shift, or acut e infarct. Impression: 1. No acute intracranial abnormality. 2. Acute on chronic sphenoid sinusitis. Electronically signed by: Ej Justice M.D. 09/14/2018 10:12 PM
[2018-09-14] MEDS ORDERED: CIPROFLOXACIN CONSULT ACTIVE PRN (22:18)
[2018-09-14] MEDS ORDERED: GLUCAGON FOR INJ 1 MG VIAL SQ PRN (22:32)
[2018-09-14] MEDS ORDERED: GLUCOSE 40% GEL 15 GM TUBE PO PRN (22:32)
[2018-09-14] MEDS ORDERED: GLUCOSE 10 TABS/TUBE PO PRN (22:32)
[2018-09-14] MEDS ORDERED: HYDROmorphone INJ 0.5 MG/0.5 ML SYR IV PRN (22:32)
[2018-09-14] MEDS ORDERED: DEXTROSE 50% 50 ML SYRINGE IV PRN (22:32)
[2018-09-14] MEDS ORDERED: CARBOHYDRATES FOR HYPOGLYCEMIA PO PRN (22:32)
[2018-09-14] MEDS ORDERED: ACETAMINOPHEN 325 MG TAB PO PRN (22:32)
[2018-09-14] MEDS ORDERED: INSULIN GLARGINE SOLOSTAR 100 UNITS/ML 3 ML PEN SQ STA (22:32)
[2018-09-14] MEDS ORDERED: OXYCODONE HCL IR 5 MG TAB (IMMEDIATE RELEASE) PO PRN (22:32)
[2018-09-14] MEDS ORDERED: MAGNESIUM SULFATE / D5W 1 GM/100 ML BAG IV ONE (23:15)
[2018-09-15] MEDS: LACTATED RINGER'S 1,000 ML IV SCH ×2 (00:07→11:03)
[2018-09-15] MEDS: CIPROFLOXACIN 400 MG/200 ML BAG IV SCH ×3 (00:22→22:34)
[2018-09-15] MEDS: metroNIDAZOLE 500 MG/100 ML BAG IV SCH ×4 (00:25→21:09)
[2018-09-15] MEDS: INSULIN ASPART 100 UNITS/ML 3 ML PEN SC SCH ×5 (00:25→17:42)
[2018-09-15] MEDS: PROMETHAZINE HCL 12.5 MG in SODIUM CHLORIDE 0.9% 50 ML IV PRN ×2 (00:36→16:38)
[2018-09-15 05:56] LABS: Hematocrit (blood only) 30.6 % (37-47); Hemoglobin 10.2 g/dL (12.0-16.0); Mean Corpuscular Hgb Conc 33.3 g/dL (32-36); Mean Corpuscular Volume 77.9 fL (80-100); Mean Platelet Volume 10.6 fL (7.4-10.4); Nucleated RBC # (auto) 0.08 K/uL (0-0); Nucleated RBC % (auto) 1.2 %; Platelet Count 106 K/uL (130-400); RDW Coefficient of Variation 14.6 % (11.5-14.5); RDW Standard Deviation 41.7 fL (36.4-46.3); Red Blood Count 3.93 M/uL (4.2-5.4); White Blood Count 6.35 K/uL (4.8-10.8)
--- NOTE | 2018-09-15 06:22 | Progress Note ---
Date of Service September 15, 2018 Assessment & Plan (1) Abnormal LFTs: pt more awake, alert, responsive- less pain MRCP report pending but does appear to have gb wall edema and ? sludge near neck I can't see CBD well. see what her labs show, GI to see- will likely require lap suraj Tue/Wed- discussed with pt/ daughter Subjective see a/p Results & Data Vital Signs (Past 12 Hours) Vital Signs Temp Pulse Pulse Resp BP BP Pulse Ox 09/15/18 04:00 36.6 C 68 18 116/71 95 09/15/18 01:14 37.1 C 56 L 18 155/82 H 92 09/14/18 22:15 37.4 C 72 18 121/67 95 09/14/18 21:54 60 18 151/74 H 97 09/14/18 21:29 61 16 154/85 H 94 09/14/18 19:51 62 17 112/74 96
[2018-09-15 06:26] LABS: Albumin Level 2.4 gm/dl (3.4-5.0); BUN Creatinine Ratio 4.6 (10-20); Creatinine Clr Calc Pharmacy 77.7 ml/min; Est GFR (African American) 106.5; Est GFR (Non-African American) 91.8; Potassium 3.8 mmol/L (3.5-5.1)
[2018-09-15 06:29] LABS: Albumin Globulin Ratio 0.5 (0.9-2); Bilirubin,Total 0.7 mg/dl (0.2-1); Globulin 4.4 gm/dl (2.5-4.0); Total Protein 6.8 gm/dl (6.4-8.2)
[2018-09-15 06:29] LABS: Estimated Average Glucose 223 mg/dl; Hemoglobin A1C 9.4 % (4.5-5.6)
--- NOTE | 2018-09-15 06:40 | Progress Note ---
Date of Service September 15, 2018 Subjective see a/p Results & Data Vital Signs (Past 12 Hours) Vital Signs Temp Pulse Pulse Resp BP BP Pulse Ox 09/15/18 04:00 36.6 C 68 18 116/71 95 09/15/18 01:14 37.1 C 56 L 18 155/82 H 92 09/14/18 22:15 37.4 C 72 18 121/67 95 09/14/18 21:54 60 18 151/74 H 97 09/14/18 21:29 61 16 154/85 H 94 09/14/18 19:51 62 17 112/74 96
[2018-09-15] MEDS ORDERED: INSULIN GLARGINE SOLOSTAR 100 UNITS/ML 3 ML PEN SQ STA (06:51)
--- NOTE | 2018-09-15 07:21 | Magnetic Resonance Report ---
MR MRCP CLINICAL HISTORY: 53 years-old Female presenting with abd pain. TECHNIQUE: Multisequence, multiplanar MR imaging of the abdomen was performed without the use of intr avenous contrast. Dedicated MRCP protocol was utilized. 3-D volumetric and/or maximum intensity proje ction (MIP) images were subsequently reconstructed for review. IV contrast: None. COMPARISON: CT performed earlier the same day. FINDINGS: Localizer images: Unremarkable. Lung bases: Lung base clear. Normal heart size. Trace bilateral pleural effusions. Liver: Normal morphology. Biliary: Conventional intrahepatic biliary bifurcation. Conventional insertion of the cystic duct. No intrahepatic or extrahepatic biliary ductal dilatation. No choledocholithiasis. Gallbladder wall thi ckening in the physiologically distended gallbladder. No gallstones. No pericholecystic inflammatory change apart from the gallbladder neck adjacent to periduodenal inflammatory change. Pancreas: Mild parenchymal atrophy. Pancreatic duct normal. Spleen: Normal noncontrast appearance. Adrenal glands: Normal noncontrast appearance. Kidneys and ureters: Normal noncontrast appearance. No hydronephrosis. Normal ureters. Bowel: Normal noncontrast appearance. No significant wall thickening of the duodenum despite the pres ence of periduodenal fluid along the descending duodenum. No bowel obstruction. Peritoneal cavity: No free fluid. Trace periduodenal free fluid in the retroperitoneum. Lymph nodes: No gross lymphadenopathy allowing for noncontrast technique. Vasculature: Normal noncontrast appearance. Abdominal wall: Normal. Musculoskeletal: Normal. IMPRESSION: 1. Gallbladder wall thickening without gallstones or pathologic distention change. No choledocholith iasis or biliary ductal dilatation. These findings are somewhat equivocal and not overly concerning f or cholecystitis. If there is concern for this diagnosis, nuclear medicine HIDA scan could be obtaine d. 2. Inflammatory change primarily surrounds the descending duodenum and gallbladder neck/cystic duct. These findings could represent duodenitis or duodenal ulcer. Electronically signed by: Donavan Cazares M.D. 09/15/2018 7:19 AM
[2018-09-15 08:05] LABS: Folate (Folic Acid) 18.74 ng/ml (>5.38)
[2018-09-15 08:16] LABS: ALC (manual) 3.82 K/uL (1.2-3.4); ANC (manual) 1.93 K/uL (1.4-6.5); Blast # (manual) 0.06 K/uL (0-0); Blast Cells % (manual) 0.9 %; Eosinophils # (manual) 0.11 K/uL (0-0.5); Eosinophils % (manual) 1.7 %; Giant Platelets 2+; Lymphocytes # (manual) 3.82 K/uL (1.2-3.4); Lymphocytes % (manual) 60.1 %; Metamyelocytes # (manual) 0.11 K/uL (0-0); Metamyelocytes % (manual) 1.7 %; Monocytes # (manual) 0.27 K/uL (0.11-0.59); Monocytes % (manual) 4.3 %; Myelocytes # (manual) 0.06 K/uL (0-0); Myelocytes % (manual) 0.9 %; Neutrophils # (manual) 1.93 K/uL (1.4-6.5); Neutrophils % (manual) 30.4 %; Polychromasia 1+
[2018-09-15 08:20] LABS: Hepatitis B Surface Antigen Neg (Neg)
[2018-09-15 08:48] LABS: Hepatitis C IgG 13Yrs+Old_Rflx Neg (Neg)
[2018-09-15] MEDS ORDERED: PANTOprazole 40 MG TAB PO SCH (09:00)
--- NOTE | 2018-09-15 09:09 | Gastrointestinal Consultation ---
Date of Consultation September 15, 2018 Assessment & Plan (1) Abnormal LFTs: (2) Abdominal pain: Pt is a 53 y/o female w n/v, diarrhea, abd pain x 9 days, noted to have elevated LFTs on eval and possible gallbladder wall thickeng, duodenum inflammation - NPO - EGD today by Dr. Crews - Elevated LFTs serologies obtained to r/o AIH, hereditary diseases, hepatitis - Stool studies for diarrhea pending - Surgery following, appreciate recs. Supervising Physician Co-Signing Physician Notes Attending attestation I have seen, examined this patient, and agree with the findings and above by our mid-level provider Sulema Marinelli, with the following additions Her presentation is unique and the fact that she has had a prodrome of nearly a week of weakness malaise, diarrhea, nausea, and fevers. She is noted to have hepatocellular elevation of her AST and ALT, and normal total bilirubin. Her exam as well as potentially some of her imaging would suggest that this is of gallbladder etiology. Her history also supports intermittent biliary colic for the last year to 2 years. The differential diagnosis would include infectious etiologies, from either intrinsic liver etiology such as a viral hepatitis, however that generally does not give you pain. Gallbladder disease, possibly peptic ulcer disease however that should not cause elevations of liver enzymes. Discussed with patient today in regards to doing an upper endoscopy based upon the CT scan results of duodenal inflammation. Further recommendations to follow IV twice daily PPI EGD today with further recommendations afterwards. Also will do serologic examination for viral hepatitis. History of Present Illness Reason for Consultation: Abd pain, elevated LFTs Requesting Physician: Dr. Melony Koehler Attending Physician: Dr. Rick Crews History of Present Illness Pt is a 53 y/o female who was visiting daughter from [facility] who presented w c/o RUQ abd pain, n/v, diarrhea x 9 days. Was also having mild fever taking Tylenol about 3-4 tabs a day. Self medicating w antibiotics from home country for a few days. Upon evaluation noted to be anemic, LFTs up: Tbili 0.7, AST 450, ALT 338, AP 287, Lipase mildly up 460, down to [address] w finding gallbladder neck inflammation MRCP w/o signs of gallstones or choledocholithiasis, but gallbladder wall thickening and duodenum inflammation ? ulcer. She denies any NSAID uses. Said in the past did have jaundice over a year ago, and told has gallbladder sand. Allergies Allergy/AdvReac Type Severity Reaction Status Date / Time No Known Allergies Allergy Unverified 09/14/18 17:48 Home Medications Home Medications Medication Instructions Recorded Confirmed Type Diapro 30 mg PO QAM 09/14/18 09/14/18 History Domperidone 10 mg PO QAM 09/14/18 09/14/18 History amitriptyline 10 mg PO HS 09/14/18 09/14/18 History bisoprolol fumarate 5 mg PO DAILY 09/14/18 09/14/18 History cefixime 200 mg PO Q12H 09/14/18 09/14/18 History fluoxetine 20 mg PO DAILY 09/14/18 09/14/18 History lansoprazole 30 mg PO QAM 09/14/18 09/14/18 History metronidazole [Flagyl] 0 mg PO BID 09/14/18 09/14/18 History olmesartan 40 mg PO QPM 09/14/18 09/14/18 History ondansetron HCl [Zofran] 4 mg PO TID PRN 09/14/18 09/14/18 History sitagliptin-metformin 1 tab PO QPM 09/14/18 09/14/18 History Patient History Medical History Diabetes Hypertension Family History Other Diabetes No pertinent family history in first degree relatives Social History Preferred Language: [facility] Communication Ability: Effective Baggage [place] Required: No Beliefs That Will Affect Care: None Current Living Situation: Spouse Feels Safe at Home: Yes Safety Concerns: Feels Safe At This Time Smoking Status: Never smoker Hx Alcohol Use: No Hx Substance Use: No Review of Systems Review of Systems: All systems reviewed & are unremarkable except as noted in HPI & below Physical Exam Constitutional: WD/WN, vitals as above well groomed, cooperative and comfortable Eyes: PERRL, conjunctivae normal, anicteric sclerae ENMT: external ear and nose normal, oropharynx normal Respiratory: normal respiratory effort, lungs clear to auscultation Cardiovascular: RRR, no murmur, no edema Gastrointestinal (Abdomen): Percussion/Palpation: + abdomen tender (RUQ, LUQ) and abdomen soft Skin: no rashes, warm and dry no jaundice Neurologic: Motor/Sensory: no asterixis Psychiatric: A+Ox3, euthymic affect Lymphatic: no lymphedema Results & Data Vital Signs (Past 12 Hours) Vital Signs Temp Pulse Pulse Resp BP BP Pulse Ox 09/15/18 08:00 69 09/15/18 07:13 36.7 C 65 16 133/83 97 09/15/18 04:00 36.6 C 68 18 116/71 95 09/15/18 01:14 37.1 C 56 L 18 155/82 H 92 09/14/18 22:15 37.4 C 72 18 121/67 95 09/14/18 21:54 60 18 151/74 H 97 09/14/18 21:29 61 16 154/85 H 94
[2018-09-15] MEDS: BISOPROLOL FUMARATE PO SCH (09:29)
[2018-09-15 10:38] LABS: Ferritin 724.8 ng/ml (8-388)
--- NOTE | 2018-09-15 11:43 | Hospitalist Progress Note ---
Date of Service September 15, 2018 Assessment & Plan (1) Transaminitis: 2/2 intra-abdominal process--poss biliary tract infection vs other. General Surgery and GI are following. EGD planned for this am with possibly cholecystectomy later this week. Cont abx and supportive care measures. (2) Diabetes mellitus: Hold oral medications, ISS with carb coverage while hospitalized. A1C is 9.4 reflecting poor control. She is new to the [place], and needs to establish PCP while she is here. Would recommend she take her Janumet twice daily instead of just qPM, and would continue her oral sulfonylurea. Would recommend refilling her prescriptions on discharge with all new medications to eliminate poor quality medication from a international company that may not operate under the same regulatory restrictions. (3) HTN (hypertension): controlled, cont bisoprolol (4) Depression: cont amitryptiline per home regimen (5) Thrombocytopenia: PLT 106 this am, poss 2/2 infection. No bleeding. Cont to monitor. (6) DVT prophylaxis: SCDs pending procedure and in setting of thrombocytopenia Full Code Dispo-pending recommendations from GI/Surg and clinical improvement Melony Koehler DO [facility] Hospitalist Subjective Limited history as patient is speaking through daughter, who is translating. Reports an improvement in her RUQ pain. She has been having pain, fever, and diarrhea for 10 days since coming to the from [facility]. She was sick within one day of arrival and [place] [facility] [place] to [place]. She took an antibiotic for the last 4 days (a cephalosporin) but still became worse. Review of Systems Review of Systems: ROS is limited as this is being translated through the daughter, however, no other symptoms can be elicited outside of what was mentioned in the HPI. Physical Exam Physical Exam: CONSTITUTIONAL: WNWD, vitals as above, generally well- appearing EYES: normal conjunctivae ENT: MMM RESPIRATORY: clear to auscultation bilaterally, no crackles, rales or wheezes, normal respiratory effort CARDIOVASCULAR: regular rate and rhythm, S1 and 2 heard without murmurs, gallops or rubs, no JVD, no peripheral edema GASTROINTESTINAL: normal bowel sounds, soft, TTP in RUQ, nondistended MUSCULOSKELETAL: able to move all extremities with ease and sit up in bed independently, head is normocephalic and atraumatic SKIN: warm and dry NEUROLOGIC: No facial palsy, moves all extremities equally, no gross focal deficits. PSYCHIATRIC: alert cooperative Results & Data Vital Signs (Past 12 Hours) Vital Signs Temp Pulse Pulse Resp BP Pulse Ox 09/15/18 11:37 36.9 C 96 H 16 131/77 99 09/15/18 11:30 36.2 C L 66 16 150/66 H 96 09/15/18 08:00 69 09/15/18 07:13 36.7 C 65 16 133/83 97 09/15/18 04:00 36.6 C 68 18 116/71 95 09/15/18 01:14 37.1 C 56 L 18 155/82 H 92 Laboratory Results Short CBC 09/14/18 09/15/18 Range/Units 17:33 05:24 WBC 7.23 6.35 (4.8-10.8) K/uL Hgb 11.2 L 10.2 L (12.0-16.0) g/dL Hct 32.7 L 30.6 L (37-47) % Plt Count 94 L 106 L (130-400) K/uL BMP 09/14/18 09/14/18 09/15/18 17:33 17:33 05:24 Sodium 129 L 132 L 135 L Potassium 4.0 3.8 Chloride 95 L 100 Carbon Dioxide 27 28 BUN 6 L 3 L Creatinine 0.79 0.74 Glucose 260 H 182 H Calcium 8.4 L 8.0 L Cardiac Enzymes 09/14/18 Range/Units 17:33 Troponin I < 0.015 (0-0.045) ng/ml Liver Function 09/14/18 09/15/18 Range/Units 17:33 05:24 Total Bilirubin 0.7 0.7 (0.2-1) mg/dl AST 410 H 257 H (15-37) U/L ALT 338 H 261 H (12-78) U/L Alkaline Phosphatase 287 H 250 H (45-117) U/L Albumin 2.5 L 2.4 L (3.4-5.0) gm/dl Urine 09/14/18 Range/Units 18:59 Urine Color Yellow Urine Appearance Clear (Clear) Urine pH 7.5 (4.5-7.5) Ur Specific [place] 1.012 (1.000-1.030) Urine Protein Negative (Negative) Urine Glucose (UA) 2+ H (Negative) Medications Administered Current Inpatient Medications Acetaminophen (Tylenol) 325 mg PO Q6H PRN PRN Reason: Pain or Fever Stop: 10/14/18 22:31 Amitriptyline HCl (Elavil) 10 mg PO HS [facility] Stop: 10/15/18 20:59 Bisoprolol Fumarate (Bisoprolol Fumarate) 1 ea PO DAILY FLORENCIO Stop: 10/15/18 09:59 Last Admin: 09/15/18 09:29 Dose: 1 ea Documented by: Dextrose (Dextrose 50%) 25 - 50 ml IV UD PRN; Protocol PRN Reason: Hypoglycemia Protocol Stop: 10/14/18 22:31 Glucagon (Glucagen) 1 mg SQ UD PRN; Protocol PRN Reason: Hypoglycemia Protocol Stop: 10/14/18 22:31 Glucose (Glucose 40%) 15 - 30 gm PO UD PRN; Protocol PRN Reason: Hypoglycemia Protocol Stop: 10/14/18 22:31 Glucose (Dex4 Glucose) 4 - 8 tabs PO UD PRN; Protocol PRN Reason: Hypoglycemia Protocol Stop: 10/14/18 22:31 Hydromorphone HCl (Dilaudid) 0.25 mg IV Q3H PRN PRN Reason: Pain Stop: 09/28/18 22:31 Last Admin: 09/15/18 02:25 Dose: 0.25 mg Documented by: Metronidazole (Flagyl) 500 mg in 100 mls @ 100 mls/hr IV Q8 FLORENCIO Stop: 09/24/18 22:44 Last Infusion: 09/15/18 06:54 Dose: Infused Documented by: Lactated Ringer's (Lr) 1,000 mls @ 80 mls/hr IV .[id number] [facility] Stop: 10/14/18 22:31 Last Admin: 09/15/18 11:03 Dose: 80 mls/hr Documented by: Promethazine HCl 12.5 mg/ (Sodium Chloride) 50.5 mls @ 202 mls/hr IV Q6H PRN PRN Reason: Nausea And Vomiting Stop: 10/14/18 22:31 Last Infusion: 09/15/18 01:05 Dose: Infused Documented by: Ciprofloxacin (Cipro) 400 mg in 200 mls @ 100 mls/hr IV Q12H FLORENCIO; Protocol Stop: 09/24/18 22:59 Last Admin: 09/15/18 11:03 Dose: 100 mls/hr Documented by: Insulin Aspart (Novolog Flexpen) 0 units SC Q6 FLORENCIO Stop: 10/15/18 06:59 Last Admin: 09/15/18 07:01 Dose: Not Given Documented by: Insulin Glargine (Lantus Solostar Pen) 10 units SQ HS FLORENCIO Stop: 10/15/18 20:59 Miscellaneous (Carbohydrates For Hypoglycemia) 15 - 30 gm PO UD PRN PRN Reason: Hypoglycemia Treatment Stop: 10/14/18 22:31 Miscellaneous Information (Ciprofloxacin Consult Active) 1 ea N/A UD PRN PRN Reason: Consult Stop: 10/14/18 22:17 Oxycodone HCl (Roxicodone Immediate Rel) 5 mg PO Q4H PRN PRN Reason: Pain Stop: 09/28/18 22:31 Pantoprazole Sodium (Protonix) 40 mg PO DAILY FLORENCIO Stop: 10/15/18 08:59 Last Admin: 09/15/18 07:31 Dose: 40 mg Documented by:
--- NOTE | 2018-09-15 11:52 | Anesthesiology Consultation ---
Date of Service September 15, 2018 DM HTN Assessment & Plan (1) Encounter for pre-operative examination: Chart Review Chart Review: Acceptable Risk for Surgery and Patient NOT seen in Pre Admission Testing Consults Requested none ASA ASA2 Proposed Anesthesia Anesthesia Type: MAC Risk / Benefits Reviewed With: PT / POA / Parent / Guardian, Accepts Plan and Informed Consent Obtained History Surgery Operation Date: 09/15/18 09:00 Proposed Procedures p Esophagogastroduodenoscopy Dr Crews - Rick Crews Operation Date: 09/16/18 11:30 Proposed Procedures p Laparoscopic Cholecystectomy, Possible Cholangiogram - Fahad Lucas MD, FACS Height/Weight Height: 5 ft 2 in Weight: 66.4 kg Allergies Allergy/AdvReac Type Severity Reaction Status Date / Time No Known Allergies Allergy Unverified 09/14/18 17:48 Medications Home Medications Medication Instructions Recorded Confirmed Last Taken Diapro 30 mg PO QAM 09/14/18 09/14/18 09/11/18 Domperidone 10 mg PO QAM 09/14/18 09/14/18 09/11/18 amitriptyline 10 mg PO HS 09/14/18 09/14/18 09/11/18 bisoprolol fumarate 5 mg PO DAILY 09/14/18 09/14/18 09/11/18 cefixime 200 mg PO Q12H 09/14/18 09/14/18 09/13/18 fluoxetine 20 mg PO DAILY 09/14/18 09/14/18 09/11/18 lansoprazole 30 mg PO QAM 09/14/18 09/14/18 09/11/18 metronidazole [Flagyl] 0 mg PO BID 09/14/18 09/14/18 09/13/18 23:00 olmesartan 40 mg PO QPM 09/14/18 09/14/18 09/11/18 ondansetron HCl [Zofran] 4 mg PO TID PRN 09/14/18 09/14/18 Unknown sitagliptin-metformin 1 tab PO QPM 09/14/18 09/14/18 09/11/18 Active Medications Generic Name Dose Route Start Last Admin Trade Name Freq PRN Reason Stop Dose Admin Bisoprolol Fumarate 1 ea 09/15/18 10:00 09/15/18 09:29 Bisoprolol Fumarate PO 10/15/18 09:59 1 ea DAILY FLORENCIO Administration Hydromorphone HCl 0.25 mg 09/14/18 22:32 09/15/18 02:25 Dilaudid IV 09/28/18 22:31 0.25 mg Q3H PRN Administration Pain Metronidazole 500 mg in 100 mls @ 100 mls/hr 09/14/18 22:45 09/15/18 06:54 Flagyl IV 09/24/18 22:44 Infused Q8 FLORENCIO Infusion Lactated Ringer's 1,000 mls @ 80 mls/hr 09/14/18 22:32 09/15/18 11:03 Lr IV 10/14/18 22:31 80 mls/hr .[id number] FLORENCIO Administration Promethazine HCl 12.5 mg/ 50.5 mls @ 202 mls/hr 09/14/18 22:32 09/15/18 01:05 Sodium Chloride IV 10/14/18 22:31 Infused Q6H PRN Infusion Nausea And Vomiting Ciprofloxacin 400 mg in 200 mls @ 100 mls/hr 09/14/18 23:00 09/15/18 11:03 Cipro IV 09/24/18 22:59 100 mls/hr Q12H FLORENCIO Administration Protocol Insulin Aspart 0 units 09/15/18 07:00 09/15/18 07:01 Novolog Flexpen SC 10/15/18 06:59 Not Given Q6 FLORENCIO Pantoprazole Sodium 40 mg 09/15/18 09:00 09/15/18 07:31 Protonix PO 10/15/18 08:59 40 mg DAILY FLORENCIO Administration NPO Date Last Intake of Fluids: 09/14/18 Time Last Intake of Fluids: 23:30 Date Last Intake of Solids: 09/14/18 Time Last Intake of Solids: 21:00 Past Medical History Medical History Diabetes Hypertension Exercise / Class Metabolic Activity II 4-5 Yardwork/Stairs/Walk up hill Past Family History Family History Other Diabetes No pertinent family history in first degree relatives Past Anesthesia History No Hx of Anesthesia Complications and No Family Hx of Anesthesia Complications History of PONV No Hx of PONV and No Hx of Motion Sickness Social History Smoking Status: Never smoker Hx Alcohol Use: No Hx Substance Use: No Physical Exam Vital Signs Last Vital Signs Temp 36.9 C 09/15/18 11:37 Pulse 96 H 09/15/18 11:37 Resp 16 09/15/18 11:37 BP 131/77 09/15/18 11:37 Pulse Ox 99 09/15/18 11:37 ENMT Mouth: no dentition abnormality Thyromental Distance: > or= 3.5 Finger Breadths Mallampati Class: II Neck normal visual inspection Respiratory normal respiratory effort Auscultation: lungs clear to auscultation bilaterally Cardiovascular Rate/Rhythm: regular rate and regular rhythm Psychiatric Orientation: alert Testing Laboratory Results 09/15/18 05:24 09/15/18 05:24 PT 10.2 Seconds (9.0-12.0) 09/14/18 20:27 INR 1.0 (0.9-1.1) 09/14/18 20:27 APTT 27.5 Seconds (21.0-31.0) 09/14/18 20:27 Hemoglobin A1c 9.4 % (4.5-5.6) H 09/14/18 17:33 Urine Color Yellow 09/14/18 18:59 Urine Appearance Clear (Clear) 09/14/18 18:59 Urine pH 7.5 (4.5-7.5) 09/14/18 18:59 Ur Specific [place] 1.012 (1.000-1.030) 09/14/18 18:59 Urine Protein Negative (Negative) 09/14/18 18:59 Urine Glucose (UA) 2+ (Negative) H 09/14/18 18:59 Urine Ketones Negative (Negative) 09/14/18 18:59 Urine Nitrite Negative (Negative) 09/14/18 18:59 Ur Leukocyte Esterase Negative (Negative) 09/14/18 18:59 Blood Type A Negative 09/14/18 20:27 Antibody Screen NEGATIVE 09/14/18 20:27 09/15/18 09/15/18 05:55 00:15 POC Glucose 183 H 167 H
[2018-09-15] MEDS ORDERED: LIDOCAINE HCL 2% 2 ML VIAL/AMP(20MG/ML) INFIL ONE (12:22)
[2018-09-15] MEDS ORDERED: PROPOFOL IV EMULSION 10 MG/ML 20 ML VIAL IV ONE (12:22)
--- NOTE | 2018-09-15 12:29 | GI REPORT ---
Patient Name: Camilo Barkley Procedure Date: 09/15/2018 11:41 AM Date of : 1965 Admit Type: Inpatient Age: 53 Gender: Female Attending MD: Rick Crews MD Procedure: Upper GI endoscopy Providers: Rick Crews MD Referring MD: Melony Koehler Do, Fahad Lucas Indications: Epigastric abdominal pain, Abdominal pain in the right upper quadrant Medicines: Monitored Anesthesia Care Complications: No immediate complications. Estimated blood loss: None. Estimated Blood Loss: Estimated blood loss: none. Procedure: Pre-Anesthesia Assessment: - Pre-Anesthesia Assessment: - Prior to the procedure, a History and Physical was performed, and patient medications, allergies and sensitivities were reviewed. The patient's tolerance of previous anesthesia was reviewed. Please see [employer] for complete details. - The risks and benefits of the procedure and the sedation options and risks were discussed with the patient. All questions were answered and informed consent was obtained. - Patient identification and proposed procedure were verified prior to the procedure by the physician and the nurse. The procedure was verified in the pre-procedure area in the procedure room. After obtaining informed consent, the endoscope was passed carefully and meticuously under direct vision and only advanced when the lumen was clearly identified, C02 insuflation was utilized throughout the entirity of the procedure. Throughout the procedure, the patient's blood pressure, pulse, and oxygen saturations were monitored continuously. After obtaining informed consent, the endoscope was passed under direct vision. Throughout the procedure, the patient's blood pressure, pulse, and oxygen saturations were monitored continuously. The Scope was introduced through the mouth, and advanced to the second part of duodenum. The upper GI endoscopy was accomplished without difficulty. The patient tolerated the procedure well. Findings: The examined esophagus was normal. The entire examined stomach was normal. Biopsies were taken with a cold forceps for histology. The examined duodenum was normal. Biopsies were taken with a cold forceps for histology. Impression: - Normal esophagus. - Normal stomach. Biopsied. - Normal examined duodenum. Biopsied. Recommendation: - Await pathology results. - Return patient to [facility] for ongoing care. - Use Prilosec (omeprazole) 40 mg PO BID. - Given symptoms and labs biliary colic appears likely. Will defer timing of surgery to Dr. Lucas. Rick Crews MD 09/15/2018 12:29:21 PM This report has been signed electronically. Note Initiated On: 09/15/2018 11:41 AM Number of Addenda: 0 I attest to the content of the Intraoperative Record and orders documented therein, exceptions below {[id number]}
--- NOTE | 2018-09-15 12:53 | Anesthesiology Progress Note ---
Date of Service September 15, 2018 Anesthesia Post Procedure Vital Signs Vital Signs: Temp Pulse Pulse Resp BP BP Pulse Ox 09/15/18 12:51 65 18 158/79 H 96 09/15/18 12:36 67 20 146/68 H 96 09/15/18 12:20 69 18 131/84 96 09/15/18 11:37 36.9 C 96 H 16 131/77 99 09/15/18 11:30 36.2 C L 66 16 150/66 H 96 09/15/18 08:00 69 09/15/18 07:13 36.7 C 65 16 133/83 97 09/15/18 04:00 36.6 C 68 18 116/71 95 09/15/18 01:14 37.1 C 56 L 18 155/82 H 92 09/14/18 22:15 37.4 C 72 18 121/67 95 09/14/18 21:54 60 18 151/74 H 97 09/14/18 21:29 61 16 154/85 H 94 09/14/18 19:51 62 17 112/74 96 09/14/18 17:47 95 09/14/18 17:46 63 18 155/72 H 96 09/14/18 17:02 37.2 C 83 20 134/78 97 Pain Intensity Back: Pain Intensity: 3 Transfer of Care Handoff Completed per policy Notes Mental Status: alert / awake / arousable Patient Amnestic to Procedure: Yes Nausea / Vomiting: adequately controlled Pain: adequately controlled Airway Patency, RR, SpO2: stable & adequate BP & HR: stable & adequate Hydration State: stable & adequate Anesthetic Complications: no major complications apparent
[2018-09-15] MEDS ORDERED: INSULIN GLARGINE SOLOSTAR 100 UNITS/ML 3 ML PEN SQ SCH (21:00)
[2018-09-15] MEDS: PANTOprazole 40 MG TAB PO SCH (21:09)
[2018-09-15] MEDS: AMITRIPTYLINE HCL 10 MG TAB PO SCH (21:09)
[2018-09-15] MEDS: INSULIN GLARGINE SOLOSTAR 100 UNITS/ML 3 ML PEN SQ SCH (21:11)
[2018-09-16] MEDS: INSULIN ASPART 100 UNITS/ML 3 ML PEN SC SCH ×4 (00:39→17:17)
[2018-09-16] MEDS: PROMETHAZINE HCL 12.5 MG in SODIUM CHLORIDE 0.9% 50 ML IV PRN (01:11)
[2018-09-16 04:31] LABS: Hepatitis A Antibody IgM NON-REACTIVE (NON-REACTIVE); Hepatitis B Core Antibody IgM NON-REACTIVE (NON-REACTIVE)
[2018-09-16] MEDS: metroNIDAZOLE 500 MG/100 ML BAG IV SCH ×3 (06:33→21:54)
[2018-09-16 07:04] LABS: Albumin Level 2.5 gm/dl (3.4-5.0); Bilirubin Direct 0.3 mg/dl (0-0.2); Bilirubin,Total 0.7 mg/dl (0.2-1); Total Protein 7.1 gm/dl (6.4-8.2)
--- NOTE | 2018-09-16 07:51 | Anesthesiology Progress Note ---
Date of Service September 16, 2018 Anesthesia Post Procedure Vital Signs Vital Signs: Temp Pulse Pulse Resp BP Pulse Ox 09/16/18 07:46 37.1 C 58 L 16 157/82 H 95 09/16/18 04:00 37.3 C 57 L 18 149/79 H 98 09/16/18 00:15 60 09/16/18 00:07 37.2 C 57 L 18 153/79 H 96 09/15/18 19:56 37.2 C 55 L 20 148/70 H 97 09/15/18 15:28 36.9 C 58 L 20 152/78 H 97 09/15/18 12:51 65 18 158/79 H 96 09/15/18 12:36 67 20 146/68 H 96 09/15/18 12:20 69 18 131/84 96 09/15/18 11:37 36.9 C 96 H 16 131/77 99 09/15/18 11:30 36.2 C L 66 16 150/66 H 96 09/15/18 08:00 69 Pain Intensity Back: Pain Intensity: 3 Notes Mental Status: alert / awake / arousable and participated in evaluation Patient Amnestic to Procedure: Yes Nausea / Vomiting: adequately controlled Pain: adequately controlled Airway Patency, RR, SpO2: stable & adequate BP & HR: stable & adequate Hydration State: stable & adequate Anesthetic Complications: no major complications apparent and Pt Satisfied with anesthetic care
--- NOTE | 2018-09-16 08:21 | Progress Note ---
Date of Service September 16, 2018 Assessment & Plan (1) Cholecystitis: pt for Laparoscopic cholecystectomy today possible cholangiogram no acute chgs Subjective see a/p Results & Data Vital Signs (Past 12 Hours) Vital Signs Temp Pulse Pulse Resp BP Pulse Ox 09/16/18 07:46 37.1 C 58 L 16 157/82 H 95 09/16/18 04:00 37.3 C 57 L 18 149/79 H 98 09/16/18 00:15 60 09/16/18 00:07 37.2 C 57 L 18 153/79 H 96
[2018-09-16] MEDS: BISOPROLOL FUMARATE PO SCH (08:55)
[2018-09-16] MEDS: PANTOprazole 40 MG TAB PO SCH ×2 (08:55→20:23)
[2018-09-16] MEDS ORDERED: BISOPROLOL FUMARATE PO SCH (09:00)
--- NOTE | 2018-09-16 09:37 | Anesthesiology Consultation ---
Date of Service September 16, 2018 Assessment & Plan Chart Review Chart Review: Acceptable Risk for Surgery and Patient NOT seen in Pre Admission Testing Consults Requested none Proposed Anesthesia Anesthesia Type: General History Surgery Operation Date: 09/15/18 09:00 Proposed Procedures p Esophagogastroduodenoscopy Dr Crews - Rick EckertRavi Eleonora Operation Date: 09/16/18 11:30 Proposed Procedures p Laparoscopic Cholecystectomy, Possible Cholangiogram - Fahad Lucas MD, FACS Height/Weight Height: 5 ft 2 in Weight: 65.6 kg Allergies Allergy/AdvReac Type Severity Reaction Status Date / Time No Known Allergies Allergy Unverified 09/14/18 17:48 Medications Home Medications Medication Instructions Recorded Confirmed Last Taken Diapro 30 mg PO QAM 09/14/18 09/14/18 09/11/18 Domperidone 10 mg PO QAM 09/14/18 09/14/18 09/11/18 amitriptyline 10 mg PO HS 09/14/18 09/14/18 09/11/18 bisoprolol fumarate 5 mg PO DAILY 09/14/18 09/14/18 09/11/18 cefixime 200 mg PO Q12H 09/14/18 09/14/18 09/13/18 fluoxetine 20 mg PO DAILY 09/14/18 09/14/18 09/11/18 lansoprazole 30 mg PO QAM 09/14/18 09/14/18 09/11/18 metronidazole [Flagyl] 0 mg PO BID 09/14/18 09/14/18 09/13/18 23:00 olmesartan 40 mg PO QPM 09/14/18 09/14/18 09/11/18 ondansetron HCl [Zofran] 4 mg PO TID PRN 09/14/18 09/14/18 Unknown sitagliptin-metformin 1 tab PO QPM 09/14/18 09/14/18 09/11/18 Active Medications Generic Name Dose Route Start Last Admin Trade Name Freq PRN Reason Stop Dose Admin Amitriptyline HCl 10 mg 09/15/18 21:00 09/15/18 21:09 Elavil PO 10/15/18 20:59 10 mg HS FLORENCIO Administration Bisoprolol Fumarate 1 ea 09/15/18 10:00 09/16/18 08:55 Bisoprolol Fumarate PO 10/15/18 09:59 Not Given DAILY FLORENCIO Hydromorphone HCl 0.25 mg 09/14/18 22:32 09/15/18 02:25 Dilaudid IV 09/28/18 22:31 0.25 mg Q3H PRN Administration Pain Metronidazole 500 mg in 100 mls @ 100 mls/hr 09/14/18 22:45 09/16/18 07:35 Flagyl IV 09/24/18 22:44 Infused Q8 FLORENCIO Infusion Promethazine HCl 12.5 mg/ 50.5 mls @ 202 mls/hr 09/14/18 22:32 09/16/18 01:26 Sodium Chloride IV 10/14/18 22:31 Infused Q6H PRN Infusion Nausea And Vomiting Ciprofloxacin 400 mg in 200 mls @ 100 mls/hr 09/14/18 23:00 09/16/18 00:34 Cipro IV 09/24/18 22:59 Infused Q12H FLORENCIO Infusion Protocol Insulin Aspart 0 units 09/15/18 07:00 09/16/18 06:06 Novolog Flexpen SC 10/15/18 06:59 Not Given Q6 FLORENCIO Insulin Glargine 10 units 09/15/18 21:00 09/15/18 21:11 Lantus Solostar Pen SQ 10/15/18 20:59 10 units HS FLORENCIO Administration Pantoprazole Sodium 40 mg 09/15/18 21:00 09/16/18 08:55 Protonix PO 10/15/18 20:59 Not Given BID FLORENCIO NPO Date Last Intake of Fluids: 09/14/18 Time Last Intake of Fluids: 23:30 Date Last Intake of Solids: 09/14/18 Time Last Intake of Solids: 21:00 Past Medical History Medical History Diabetes Hypertension Exercise / Class Metabolic Activity II 4-5 Yardwork/Stairs/Walk up hill Past Family History Family History Other Diabetes No pertinent family history in first degree relatives Past Surgical History Surgical History H/O esophagogastroduodenoscopy 09/15/18 with MAC Past Anesthesia History No Hx of Anesthesia Complications and No Family Hx of Anesthesia Complications History of PONV No Hx of PONV and No Hx of Motion Sickness Social History Smoking Status: Never smoker Hx Alcohol Use: No Hx Substance Use: No Physical Exam Vital Signs Last Vital Signs Temp 37.1 C 09/16/18 07:46 Pulse 58 L 09/16/18 07:46 Resp 16 09/16/18 07:46 BP 157/82 H 09/16/18 07:46 Pulse Ox 95 09/16/18 07:46 Testing Laboratory Results 09/15/18 05:24 09/15/18 05:24 PT 10.2 Seconds (9.0-12.0) 09/14/18 20:27 INR 1.0 (0.9-1.1) 09/14/18 20:27 APTT 27.5 Seconds (21.0-31.0) 09/14/18 20:27 Hemoglobin A1c 9.4 % (4.5-5.6) H 09/14/18 17:33 Urine Color Yellow 09/14/18 18:59 Urine Appearance Clear (Clear) 09/14/18 18:59 Urine pH 7.5 (4.5-7.5) 09/14/18 18:59 Ur Specific [place] 1.012 (1.000-1.030) 09/14/18 18:59 Urine Protein Negative (Negative) 09/14/18 18:59 Urine Glucose (UA) 2+ (Negative) H 09/14/18 18:59 Urine Ketones Negative (Negative) 09/14/18 18:59 Urine Nitrite Negative (Negative) 09/14/18 18:59 Ur Leukocyte Esterase Negative (Negative) 09/14/18 18:59 Blood Type A Negative 09/14/18 20:27 Antibody Screen NEGATIVE 09/14/18 20:27 09/14/18 18:59 Escherichia coli Shiga Toxins Test - Preliminary Stool Stool Culture - Preliminary No Salmonella isolated to date, No Shigella isolated to date, No Campylobacter jejuni isolated to date. 09/15/18 05:32 Aerobic Blood Culture - Preliminary Blood No growth in Aerobic bottle after 24 hours. Anaerobic Blood Culture - Preliminary No growth in Anaerobic bottle after 24 hours. 09/15/18 05:24 Aerobic Blood Culture - Preliminary Blood No growth in Aerobic bottle after 24 hours. Anaerobic Blood Culture - Preliminary No growth in Anaerobic bottle after 24 hours. 09/16/18 09/16/18 09/16/18 07:35 06:04 00:22 POC Glucose 131 H 134 H 153 H Electrocardiogram Date: 09/15/18 Findings: + SB @ (58 bpm) Nonspecific T wave abnormality Chest X-Ray Date: 09/14/18 Findings: + NAD Trace bilateral pleural effusion. Otherwise, no acute process in the chest
[2018-09-16] MEDS ORDERED: ONDANSETRON INJ 2 MG/ML 2 ML VIAL ONE (09:45)
[2018-09-16] MEDS ORDERED: LIDOCAINE HCL 2% 2 ML VIAL/AMP(20MG/ML) INFIL ONE (09:45)
[2018-09-16] MEDS ORDERED: MIDAZOLAM HCL 1 MG/ML 2ML VIAL ONE (09:45)
[2018-09-16] MEDS ORDERED: fentaNYL citrate 100 MCG/2 ML VIAL ONE ×2 (09:45→11:43)
[2018-09-16] MEDS ORDERED: DEXAMETHASONE SOD INJ 4 MG/ML VIAL ONE (09:45)
[2018-09-16] MEDS ORDERED: PROPOFOL IV EMULSION 10 MG/ML 20 ML VIAL IV ONE (09:45)
[2018-09-16] MEDS ORDERED: ACETAMINOPHEN 1000 MG/100 ML IV IV ONE (09:53)
--- NOTE | 2018-09-16 10:15 | Hospitalist Progress Note ---
Date of Service September 16, 2018 Assessment & Plan (1) Transaminitis: Improved, EGD normal yesterday. GI workup is pending. She is s/p lap suraj today and although she had one episode of watery stool and was incontinent this am, this was followed by a normal formed stool. She is currently feeling well, denying diarrhea, fevers, or nausea. Cont post-op recovery and watch for clinical improvement in the next 24 hours. Cont antibiotics for now. (2) Diabetes mellitus: Hold oral medications, ISS with carb coverage while hospitalized. A1C is 9.4 reflecting poor control. She is new to the , and needs to establish PCP while she is here. Would recommend she take her Janumet twice daily instead of just qPM, and would continue her oral sulfonylurea. Would recommend refilling her prescriptions on discharge with all new medications to eliminate poor quality medication from a international company that may not operate under the same regulatory restrictions. (3) HTN (hypertension): controlled, cont bisoprolol (4) Depression: cont amitryptiline per home regimen, the patient denies chronic pain. (5) Thrombocytopenia: poss 2/2 infection. No bleeding. Cont to monitor with CBC in am. (6) DVT prophylaxis: SCDs in setting of recent operation and thrombocytopenia. Re-evaluate this daily. Full Code Dispo-pending clinical improvement and surgical clearance for discharge. Melony Koehler DO [facility] Hospitalist Subjective Feeling well postoperatively. Denies any pain. She did have a dose of Dilaudid at 2:00 and is reporting some itching in her face. Daughter is at bedside translating and asked several questions regarding lab results and plan. All questions were answered to her satisfaction. The patient is tolerating p.o. some lightheadedness immediately postop was present. Encouraged ambulation with assistance. Review of Systems Review of Systems: Other Review of systems was reviewed with daughter who was translating. All symptoms listed in HPI PI otherwise negative. Physical Exam Physical Exam: CONSTITUTIONAL: WNWD, vitals as above, generally well- appearing EYES: normal conjunctivae ENT: MMM RESPIRATORY: clear to auscultation bilaterally, no crackles, rales or wheezes, normal respiratory effort CARDIOVASCULAR: regular rate and rhythm, S1 and 2 heard without murmurs, gallops or rubs, no JVD, no peripheral edema GASTROINTESTINAL: soft, nontender, nondistended, incision sites are present covered with dressings that are c/d/i, steri strips present. MUSCULOSKELETAL: able to move all extremities with ease and sit up in bed independently, head is normocephalic and atraumatic SKIN: warm and dry and incisions above. NEUROLOGIC: No facial palsy, moves all extremities equally, no gross focal deficits. PSYCHIATRIC: alert cooperative Results & Data Vital Signs (Past 12 Hours) Vital Signs Temp Pulse Pulse Resp BP Pulse Ox 09/16/18 07:46 37.1 C 58 L 16 157/82 H 95 09/16/18 04:00 37.3 C 57 L 18 149/79 H 98 09/16/18 00:15 60 09/16/18 00:07 37.2 C 57 L 18 153/79 H 96 Laboratory Results Liver Function 09/16/18 Range/Units 06:02 Total Bilirubin 0.7 (0.2-1) mg/dl Direct Bilirubin 0.3 H (0-0.2) mg/dl AST 134 H (15-37) U/L ALT 193 H (12-78) U/L Alkaline Phosphatase 224 H (45-117) U/L Albumin 2.5 L (3.4-5.0) gm/dl Medications Administered Current Inpatient Medications Acetaminophen (Tylenol) 325 mg PO Q6H PRN PRN Reason: Pain or Fever Stop: 10/14/18 22:31 Amitriptyline HCl (Elavil) 10 mg PO HS FLORENCIO Stop: 10/15/18 20:59 Last Admin: 09/15/18 21:09 Dose: 10 mg Documented by: Bisoprolol Fumarate (Bisoprolol Fumarate) 1 ea PO DAILY FLORENCIO Stop: 10/15/18 09:59 Last Admin: 09/16/18 08:55 Dose: Not Given Documented by: Dextrose (Dextrose 50%) 25 - 50 ml IV UD PRN; Protocol PRN Reason: Hypoglycemia Protocol Stop: 10/14/18 22:31 Glucagon (Glucagen) 1 mg SQ UD PRN; Protocol PRN Reason: Hypoglycemia Protocol Stop: 10/14/18 22:31 Glucose (Glucose 40%) 15 - 30 gm PO UD PRN; Protocol PRN Reason: Hypoglycemia Protocol Stop: 10/14/18 22:31 Glucose (Dex4 Glucose) 4 - 8 tabs PO UD PRN; Protocol PRN Reason: Hypoglycemia Protocol Stop: 10/14/18 22:31 Hydromorphone HCl (Dilaudid) 0.25 mg IV Q3H PRN PRN Reason: Pain Stop: 09/28/18 22:31 Last Admin: 09/15/18 02:25 Dose: 0.25 mg Documented by: Metronidazole (Flagyl) 500 mg in 100 mls @ 100 mls/hr IV Q8 FLORENCIO Stop: 09/24/18 22:44 Last Infusion: 09/16/18 07:35 Dose: Infused Documented by: Promethazine HCl 12.5 mg/ (Sodium Chloride) 50.5 mls @ 202 mls/hr IV Q6H PRN PRN Reason: Nausea And Vomiting Stop: 10/14/18 22:31 Last Infusion: 09/16/18 01:26 Dose: Infused Documented by: Ciprofloxacin (Cipro) 400 mg in 200 mls @ 100 mls/hr IV Q12H FLORENCIO; Protocol Stop: 09/24/18 22:59 Last Infusion: 09/16/18 00:34 Dose: Infused Documented by: Insulin Aspart (Novolog Flexpen) 0 units SC Q6 FLORENCIO Stop: 10/15/18 06:59 Last Admin: 09/16/18 06:06 Dose: Not Given Documented by: Insulin Glargine (Lantus Solostar Pen) 10 units SQ HS FLORENCIO Stop: 10/15/18 20:59 Last Admin: 09/15/18 21:11 Dose: 10 units Documented by: Miscellaneous (Carbohydrates For Hypoglycemia) 15 - 30 gm PO UD PRN PRN Reason: Hypoglycemia Treatment Stop: 10/14/18 22:31 Miscellaneous Information (Ciprofloxacin Consult Active) 1 ea N/A UD PRN PRN Reason: Consult Stop: 10/14/18 22:17 Oxycodone HCl (Roxicodone Immediate Rel) 5 mg PO Q4H PRN PRN Reason: Pain Stop: 09/28/18 22:31 Pantoprazole Sodium (Protonix) 40 mg PO BID FLORENCIO Stop: 10/15/18 20:59 Last Admin: 09/16/18 08:55 Dose: Not Given Documented by:
[2018-09-16] MEDS ORDERED: KETOROLAC 30 MG/ML VIAL IV PRN (11:06)
[2018-09-16] MEDS ORDERED: ONDANSETRON INJ 2 MG/ML 2 ML VIAL IV PRN (11:06)
[2018-09-16] MEDS ORDERED: ATROPINE SULFATE 0.1 MG/ML 10ML SYR IV PRN (11:06)
[2018-09-16] MEDS ORDERED: HYDROmorphone INJ 1 MG/ML SYRINGE IV PRN ×2 (11:06→13:35)
[2018-09-16] MEDS ORDERED: LABETALOL HCL IV 5 MG/ML 20ML IV PRN (11:06)
[2018-09-16] MEDS ORDERED: BUPIVACAINE 0.5 % 5 MG/1 ML MPF 30ML VIAL ONE (11:14)
[2018-09-16] MEDS ORDERED: CONRAY 60% 50 ML VIAL ONE (11:15)
--- NOTE | 2018-09-16 11:53 | Gastroenterology Progress Note ---
Date of Service September 16, 2018 Assessment & Plan (1) Abnormal LFTs: (2) Abdominal pain: Pt is a 53 y/o female w n/v, diarrhea, abd pain x 9 days, noted to have elevated LFTs on eval and possible gallbladder wall thickening, duodenum inflammation. EGD on 09/15 unremarkable. Her LFTs are decreasing and she's w/o abd pain today. ? biliary colic. Plan for OR cholecystectomy by Dr. Lance leyva intra op cholangiogram - Will f/u intra op cholangiogram, if positive for biliary stone will offer ERCP - Trend LFTs and serologies to r/o infectious, hepatitis, AIH, hereditary liver diseases - Stool studies: Cx negative, Cdiff (not performed due to formed stool). Supervising Physician Co-Signing Physician Notes Attending attestation I have seen, examined this patient, and agree with the findings and above by our mid-level provider Ms.Leonie Marinelli, with the following additions -LFTS improved, awaiting labs -Lap Osiris today Subjective Pt denies any abd pain, tolerated CL diet last night. NPO after midnight for cholecystectomy and intra op chlangiogram by Dr. Lucas today Review of Systems Review of Systems: All systems reviewed & are unremarkable except as noted in HPI & below Physical Exam Constitutional: WD/WN, vitals as above well groomed, cooperative and comfortable Eyes: PERRL, conjunctivae normal, anicteric sclerae ENMT: external ear and nose normal, oropharynx normal Respiratory: normal respiratory effort, lungs clear to auscultation Cardiovascular: RRR, no murmur, no edema Gastrointestinal (Abdomen): normal bowel sounds, soft, nontender, no hepatosplenomegaly Skin: no rashes, warm and dry no jaundice Neurologic: Motor/Sensory: no asterixis Psychiatric: A+Ox3, euthymic affect Lymphatic: no lymphedema Results & Data Vital Signs (Past 12 Hours) Vital Signs Temp Pulse Pulse Resp BP Pulse Ox 09/16/18 11:12 36.8 C 64 20 161/75 H 96 09/16/18 07:46 37.1 C 58 L 16 157/82 H 95 09/16/18 04:00 37.3 C 57 L 18 149/79 H 98 09/16/18 00:15 60 09/16/18 00:07 37.2 C 57 L 18 153/79 H 96
[2018-09-16] MEDS: CIPROFLOXACIN 400 MG/200 ML BAG IV SCH ×2 (11:56→22:58)
[2018-09-16] MEDS ORDERED: NEOSTIGMINE METHYLSULFATE 5 MG/5 ML SYR ONE (11:57)
[2018-09-16] MEDS ORDERED: GLYCOPYRROLATE 0.2 MG/ML VIAL ONE (11:57)
--- NOTE | 2018-09-16 12:22 | Operative Report ---
Post Operative Report Pre & Post Diagnosis Operation Date: 09/15/18 09:00 Pre-Op Diagnosis: abdominal pain Post-Op Diagnosis: normal EGD Operation Date: 09/16/18 11:30 Pre-Op Diagnosis: Acute Cholecystitis Post-Op Diagnosis: Acute Cholecystitis Procedure Operation Date: 09/15/18 09:00 Actual Procedures p EGD Biopsy Cytology - Rick EckertRavi Eleonora Operation Date: 09/16/18 11:30 Actual Procedures p Laparoscopic Cholecystectomy, Cholangiogram - Fahad Lucas MD, FACS Surgeon Fahad Lucas MD, FACS [employer] Estimated Blood Loss 5 Findings Consistent with Post-Op Diagnosis Specimens gallbladder Description of Procedure see dictation mild acute cholecystitis periportal edema cholangiogram- no defects may not be etiology of elevated transaminases I attest to the content of the Intraoperative Record and any orders documented therein. Any exceptions are noted below.
[2018-09-16] MEDS ORDERED: ACETAMINOPHEN 1,000 MG/100 ML VIAL IV STA (12:24)
[2018-09-16] MEDS ORDERED: ACETAMINOPHEN 325 MG TAB PO PRN (12:35)
--- NOTE | 2018-09-16 12:42 | Fluoroscopy Report ---
INTRAOPERATIVE CHOLANGIOGRAM HISTORY: Post cholecystectomy. FLUOROSCOPY TIME: 13 seconds. 5 fluoroscopic spot images submitted. FINDINGS: Fluoroscopy was provided for an intraoperative cholangiogram status post cholecystectomy. C ontrast was injected through the cystic duct remnant. The common bile duct is normal in course and ca liber. There are no filling defects seen within the common bile duct to suggest a retained stone. Co ntrast extends into the small bowel. There is no intrahepatic bile duct dilatation. IMPRESSION: Fluoroscopy provided for an intraoperative cholangiogram status post cholecystectomy. No filling defects within the common bile duct. Electronically signed by: Ej Justice M.D. 09/16/2018 12:41 PM
[2018-09-16] MEDS ORDERED: HYDROmorphone INJ 0.5 MG/0.5 ML SYR IV PRN (13:35)
[2018-09-16] MEDS ORDERED: PROMETHAZINE HCL 12.5 MG in SODIUM CHLORIDE 0.9% 50 ML IV PRN (13:35)
[2018-09-16] MEDS ORDERED: PROMETHAZINE HCL 25 MG in SODIUM CHLORIDE 0.9% 50 ML IV PRN (13:35)
[2018-09-16] MEDS ORDERED: HYDROCODONE/ACETAMOPHEN 5/325MG TAB PO PRN (13:35)
--- NOTE | 2018-09-16 14:19 | Anesthesiology Progress Note ---
Date of Service September 16, 2018 Anesthesia Post Procedure Vital Signs Vital Signs: Temp Pulse Pulse Pulse Resp BP Pulse Ox 09/16/18 13:45 36.8 C 60 20 157/80 H 96 09/16/18 13:25 62 21 155/82 H 98 09/16/18 13:15 36.1 C L 62 15 153/71 H 98 09/16/18 13:05 62 17 148/77 H 99 09/16/18 12:55 71 17 157/78 H 100 09/16/18 12:45 60 17 136/66 100 09/16/18 12:35 36.7 C 69 19 135/70 98 09/16/18 11:12 36.8 C 64 20 161/75 H 96 09/16/18 08:00 62 09/16/18 07:46 37.1 C 58 L 16 157/82 H 95 09/16/18 04:00 37.3 C 57 L 18 149/79 H 98 09/16/18 00:15 60 09/16/18 00:07 37.2 C 57 L 18 153/79 H 96 09/15/18 19:56 37.2 C 55 L 20 148/70 H 97 09/15/18 15:28 36.9 C 58 L 20 152/78 H 97 Pain Intensity Back: Pain Intensity: 3 Abdomen: Pain Intensity: 0 Transfer of Care Handoff Completed per policy Notes Mental Status: alert / awake / arousable Patient Amnestic to Procedure: Yes Nausea / Vomiting: adequately controlled Pain: adequately controlled Airway Patency, RR, SpO2: stable & adequate BP & HR: stable & adequate Hydration State: stable & adequate Anesthetic Complications: no major complications apparent
[2018-09-16] MEDS: HYDROCODONE/ACETAMOPHEN 5/325MG TAB PO PRN (20:22)
[2018-09-16] MEDS: AMITRIPTYLINE HCL 10 MG TAB PO SCH (20:23)
[2018-09-16] MEDS: INSULIN GLARGINE SOLOSTAR 100 UNITS/ML 3 ML PEN SQ SCH (20:24)
--- NOTE | 2018-09-16 21:43 | Operative Report ---
DATE OF OPERATION: 09/16/2018 NAME OF OPERATION: Laparoscopic cholecystectomy with cholangiogram. PREOPERATIVE DIAGNOSIS: Acute cholecystitis. POSTOPERATIVE DIAGNOSIS: Acute cholecystitis. Cholangiogram appeared normal. STAFF SURGEON: Fahad Lucas MD. ASSISTANTS: Aaron Rose PA-C and July Collins. ANESTHESIA: General. PROCEDURE: The patient was brought in the operating room and placed on the operating table in supine position. Pneumatic stockings and orogastric tube were placed. Her abdomen was prepped and draped in usual fashion. My assistants helped with prepping, draping, removal of the gallbladder, cholangiography and closure of the wounds. Initially, skin and subcutaneous tissue at all incisions were anesthetized. Incision was made above the umbilicus, carrying dissection down, placing a Veress needle producing pneumoperitoneum. An 11 mm port was placed at this level and then three 5 mm ports placed under visualization, 1 cephalad and 2 laterally. Gallbladder appeared to be normal, but there was edema at the katiuska hepatis. It was grasped and retracted. It was aspirated of bile. Dissection was carried out at the katiuska hepatis with some inflammation consistent with acute cholecystitis. There was also some scar tissue consistent with chronic cholecystitis. Cystic duct and cystic artery were identified, clipped and transected. The gallbladder was then dissected away from the liver bed. There was edema in the posterior wall. Gallbladder was placed in an Endobag. After appropriate hemostasis and irrigation, the Endobag was removed from the umbilical site. All ports were removed. Fascia at the umbilicus closed using 0 Vicryl suture. Prior to all this, I did perform cholangiography which showed good flow into the duodenum with no significant defects. Common bile duct appeared normal size. Her liver also appeared mildly fatty, but is not scarred. No evidence of cirrhosis. The skin was reapproximated using subcuticular 4-0 Monocryl and Steri-Strips and at the umbilicus it was closed using 5-0 Prolene suture. The patient was transferred to recovery room in stable condition. I attest to the content of the Intraoperative Record and any orders documented therein. Any exception s are noted below.
[2018-09-17] MEDS: metroNIDAZOLE 500 MG/100 ML BAG IV SCH ×3 (05:56→22:01)
[2018-09-17 06:04] LABS: Basophils # (auto) 0.02 K/uL (0-0.2); Basophils % (auto) 0.3 %; Eosinophils # (auto) 0.16 K/uL (0-0.5); Eosinophils % (auto) 2.6 %; Hematocrit (blood only) 30.6 % (37-47); Hemoglobin 10.2 g/dL (12.0-16.0); Immature Granulocytes # (auto) 0.08 K/uL (0.00-0.02); Immature Granulocytes % (auto) 1.3 %; Lymphocytes % (auto) 34.2 %; Mean Corpuscular Hemoglobin 26.3 pg (25-34); Mean Corpuscular Hgb Conc 33.3 g/dL (32-36); Mean Corpuscular Volume 78.9 fL (80-100); Mean Platelet Volume 10.9 fL (7.4-10.4); Monocytes # (auto) 0.79 K/uL (0.11-0.59); Monocytes % (auto) 12.9 %; Neutrophils # (auto) 2.99 K/uL (1.4-6.5); Neutrophils % (auto) 48.7 %; Platelet Count 183 K/uL (130-400); RDW Coefficient of Variation 15.2 % (11.5-14.5); RDW Standard Deviation 42.5 fL (36.4-46.3); Red Blood Count 3.88 M/uL (4.2-5.4); White Blood Count 6.14 K/uL (4.8-10.8)
[2018-09-17 06:21] LABS: Albumin Level 2.4 gm/dl (3.4-5.0); BUN Creatinine Ratio 6.5 (10-20); Bilirubin Direct 0.3 mg/dl (0-0.2); Creatinine Clr Calc Pharmacy 81.7 ml/min; Est GFR (African American) 113.8; Est GFR (Non-African American) 98.2; Potassium 3.5 mmol/L (3.5-5.1)
[2018-09-17 06:24] LABS: Albumin Globulin Ratio 0.5 (0.9-2); Bilirubin,Total 0.8 mg/dl (0.2-1); Globulin 4.4 gm/dl (2.5-4.0); Phosphorus 3.3 mg/dl (2.5-4.9); Total Protein 6.9 gm/dl (6.4-8.2)
--- NOTE | 2018-09-17 07:22 | Progress Note ---
Date of Service September 17, 2018 Assessment & Plan (1) Cholecystitis: s/p lap suraj- normal cholangiogram some pain- po norco abd- soft, incisions intact adv diet, walk possible d/c tomorrow from surg stdpt Results & Data Vital Signs (Past 12 Hours) Vital Signs Temp Pulse Pulse Pulse Resp BP Pulse Ox 09/17/18 04:20 67 09/17/18 04:00 37.0 C 66 18 152/78 H 96 09/16/18 23:36 37.1 C 71 20 151/75 H 93 09/16/18 19:39 37.1 C 70 18 136/73 91
--- NOTE | 2018-09-17 08:19 | Anesthesiology Progress Note ---
Date of Service September 17, 2018 Anesthesia Post Procedure Vital Signs Vital Signs: Temp Pulse Pulse Pulse Resp BP BP 09/17/18 07:21 37 C 77 16 131/71 09/17/18 04:20 67 09/17/18 04:00 37.0 C 66 18 152/78 H 09/16/18 23:36 37.1 C 71 20 151/75 H 09/16/18 19:39 37.1 C 70 18 136/73 09/16/18 16:13 37.1 C 67 18 130/72 09/16/18 15:35 36.9 C 66 18 122/74 09/16/18 15:15 36.9 C 70 20 128/80 09/16/18 14:15 37.1 C 63 18 158/81 H 09/16/18 13:45 36.8 C 60 20 157/80 H 09/16/18 13:25 62 21 155/82 H 09/16/18 13:15 36.1 C L 62 15 153/71 H 09/16/18 13:05 62 17 148/77 H 09/16/18 12:55 71 17 157/78 H 09/16/18 12:45 60 17 136/66 09/16/18 12:35 36.7 C 69 19 135/70 09/16/18 11:12 36.8 C 64 20 161/75 H Pulse Ox 09/17/18 07:21 95 09/17/18 04:20 09/17/18 04:00 96 09/16/18 23:36 93 09/16/18 19:39 91 09/16/18 16:13 94 09/16/18 15:35 94 09/16/18 15:15 97 09/16/18 14:15 94 09/16/18 13:45 96 09/16/18 13:25 98 09/16/18 13:15 98 09/16/18 13:05 99 09/16/18 12:55 100 09/16/18 12:45 100 09/16/18 12:35 98 09/16/18 11:12 96 Pain Intensity Back: Pain Intensity: 3 Abdomen: Pain Intensity: 0 Notes Mental Status: alert / awake / arousable and participated in evaluation Patient Amnestic to Procedure: Yes Nausea / Vomiting: adequately controlled Pain: adequately controlled Airway Patency, RR, SpO2: stable & adequate BP & HR: stable & adequate Hydration State: stable & adequate Anesthetic Complications: no major complications apparent and Pt Satisfied with anesthetic care
[2018-09-17] MEDS: HEPARIN SOD 5,000 UNIT/0.5 ML VIAL SQ SCH ×2 (08:26→21:07)
[2018-09-17] MEDS: BISOPROLOL FUMARATE PO SCH (08:26)
[2018-09-17] MEDS: PANTOprazole 40 MG TAB PO SCH ×2 (08:26→21:05)
[2018-09-17] MEDS: INSULIN ASPART 100 UNITS/ML 3 ML PEN SC SCH ×4 (08:28→21:07)
--- NOTE | 2018-09-17 10:50 | Gastroenterology Progress Note ---
Date of Service September 17, 2018 Assessment & Plan (1) Abnormal LFTs: (2) Abdominal pain: Pt is a 53 y/o female w n/v, diarrhea, abd pain x 9 days, noted to have elevated LFTs on eval and possible gallbladder wall thickening, duodenum inflammation. EGD on 09/15 unremarkable. Her LFTs are decreasing and she's w/o abd pain today. ? biliary colic. Plan for OR cholecystectomy by Dr. Lance leyva intra op cholangiogram - Will f/u intra op cholangiogram, if positive for biliary stone will offer ERCP - Trend LFTs and serologies to r/o infectious, hepatitis, AIH, hereditary liver diseases - Stool studies: Cx negative, Cdiff (not performed due to formed stool). Physical Exam Constitutional: WD/WN, vitals as above well groomed, cooperative and comfortable Eyes: PERRL, conjunctivae normal, anicteric sclerae ENMT: external ear and nose normal, oropharynx normal Respiratory: normal respiratory effort, lungs clear to auscultation Cardiovascular: RRR, no murmur, no edema Gastrointestinal (Abdomen): normal bowel sounds, soft, nontender, no hepatosplenomegaly Percussion/Palpation: + abdomen tender (RUQ, LUQ) and abdomen soft Skin: no rashes, warm and dry no jaundice Neurologic: Motor/Sensory: no asterixis Psychiatric: A+Ox3, euthymic affect Lymphatic: no lymphedema Results & Data Vital Signs (Past 12 Hours) Vital Signs Temp Pulse Pulse Pulse Resp BP BP 09/17/18 09:34 74 09/17/18 07:21 37 C 77 16 131/71 09/17/18 04:20 67 09/17/18 04:00 37.0 C 66 18 152/78 H 09/16/18 23:36 37.1 C 71 20 151/75 H Pulse Ox 09/17/18 09:34 09/17/18 07:21 95 09/17/18 04:20 09/17/18 04:00 96 09/16/18 23:36 93
[2018-09-17] MEDS: CIPROFLOXACIN 400 MG/200 ML BAG IV SCH ×2 (10:57→23:42)
[2018-09-17] MEDS: HYDROCODONE/ACETAMOPHEN 5/325MG TAB PO PRN (11:08)
--- NOTE | 2018-09-17 11:20 | Gastroenterology Progress Note ---
Date of Service September 17, 2018 Assessment & Plan (1) Abnormal LFTs: (2) Abdominal pain: Pt is a 53 y/o female w n/v, diarrhea, abd pain x 9 days, noted to have elevated LFTs on eval and possible gallbladder wall thickening, duodenum inflammation. EGD on 09/15 unremarkable. Her LFTs are decreasing and she's w/o abd pain today. ? biliary colic. S/P lap cholecystectomy by Dr. Lance leyva intra op cholangiogram (IOC) on 09/16, IOC negative for biliary obstruction. - No indication for ERCP - Trend LFTs and serologies to r/o infectious, hepatitis, AIH, hereditary liver diseases - Stool studies: Cx negative, Cdiff (not performed due to formed stool). - Path from EGD on 09/15 showed chronic inactive gastritis, no Hpylori, metaplasia, dysplasia. However + intraepithelial lymphocytosis ? celiac disease vs infectious, autoimmune processes, Crohns. Celiac serologies pending. Supervising Physician Co-Signing Physician Notes Attending attestation I have seen, examined this patient, and agree with the findings and above by our mid-level provider Ms.Leonie Marinelli, with the following additions - Improving overall - Tolerating diet - Baker Second consult for Celiac Disease - Will need to clarify outpt f/u while serologies are pending given only visiting Subjective Pt denies any n/v, + abd pain on R side of abd area at surgical sites. Passing flatus, no BMs. Tolerating diet. Review of Systems Review of Systems: All systems reviewed & are unremarkable except as noted in HPI & below Physical Exam Constitutional: WD/WN, vitals as above well groomed, cooperative and comfortable Eyes: PERRL, conjunctivae normal, anicteric sclerae ENMT: external ear and nose normal, oropharynx normal Respiratory: normal respiratory effort, lungs clear to auscultation Cardiovascular: RRR, no murmur, no edema Gastrointestinal (Abdomen): Percussion/Palpation: + abdomen tender (at post cholecystectomy trocar sites. ) and abdomen soft Skin: no rashes, warm and dry no jaundice Neurologic: Motor/Sensory: no asterixis Psychiatric: A+Ox3, euthymic affect Lymphatic: no lymphedema Results & Data Vital Signs (Past 12 Hours) Vital Signs Temp Pulse Pulse Pulse Resp BP BP 09/17/18 09:34 74 09/17/18 07:21 37 C 77 16 131/71 09/17/18 04:20 67 09/17/18 04:00 37.0 C 66 18 152/78 H 09/16/18 23:36 37.1 C 71 20 151/75 H Pulse Ox 09/17/18 09:34 09/17/18 07:21 95 09/17/18 04:20 09/17/18 04:00 96 09/16/18 23:36 93
[2018-09-17] MEDS ORDERED: MAGNESIUM HYDROXIDE SUSP 30 ML UDC PO STA (15:33)
--- NOTE | 2018-09-17 15:44 | Hospitalist Progress Note ---
Date of Service September 17, 2018 Assessment & Plan (1) Transaminitis: Improved, EGD normal on 09/15 GI workup -chronic inactive gastritis, no HP, metaplasia, dysplasia intraepithelial lymphocytosisceliac/infectious/autoimmune process Hepatitis markers negative and serology pending. LFTs are improving Tolerating clears today (2) Cholecystitis: Status post laparoscopic cholecystectomy with intraoperative cholangiogram Negative cholangiogram for any stone No need to have ERCP Appreciate surgery input and recommendation Clears started and if tolerated will advance accordingly Likely discharge tomorrow if stable (3) Diabetes mellitus: Hold oral medications, ISS with carb coverage while hospitalized. A1C is 9.4 reflecting poor control. She is new to the [place], and needs to establish PCP while she is here. Would recommend she take her Janumet twice daily instead of just qPM, and would continue her oral sulfonylurea. Discussed with the daughter (4) HTN (hypertension): controlled, cont bisoprolol (5) Depression: cont amitryptiline per home regimen, the patient denies chronic pain. (6) Thrombocytopenia: poss 2/2 infection. No bleeding. Cont to monitor with CBC in am. (7) DVT prophylaxis: SCDs in setting of recent operation and thrombocytopenia. Re-evaluate this daily. Full Code Dispo-pending clinical improvement and surgical clearance for discharge. Melony Koehler DO [facility] Hospitalist Subjective 09/17 The patient was seen and examined in medical telemetry unit in presence of the daughter She is a 53-year-old female with significant past medical history of type 2 diabetes, hypertension,chronic anemia, mood disorder and gallbladder disease was admitted with abdominal pain, diarrhea prior to admission Noted to have acute cholecystitis and underwent laparoscopic cholecystectomy on 09/16 Has been complaining of pain in the abdomen some distention Clears have been started orally Review of Systems Review of Systems: All systems reviewed and are unremarkable except as noted below Constitutional: + fatigue and + weakness Respiratory: no cough and no dyspnea Gastrointestinal: + abdominal pain and + bloating; no nausea and no vomiting Physical Exam Physical Exam: Moderate distress at rest due to abdominal discomfort Constitutional: + acute distress (Minimal), + ill appearing, well groomed, cooperative and comfortable Eyes: PERRL, conjunctivae normal, anicteric sclerae ENMT: external ear and nose normal, oropharynx normal Mouth: no dentition abnormality Mallampati Class: II Neck: normal visual inspection Respiratory: normal respiratory effort; no respiratory distress Auscultation: lungs clear to auscultation bilaterally Cardiovascular: Rate/Rhythm: regular rate and regular rhythm Heart Sounds: no murmur Gastrointestinal (Abdomen): Inspection/Auscultation: + abdomen distended and normal bowel sounds Percussion/Palpation: + abdomen tender (at post cholecystectomy trocar sites. ) and abdomen soft Skin: no rashes, warm and dry no jaundice Neurologic: Motor/Sensory: no asterixis Alert, awake and oriented x3. Generally weak Psychiatric: A+Ox3, euthymic affect Orientation: alert Lymphatic: no lymphedema Results & Data Vital Signs (Past 12 Hours) Vital Signs Temp Pulse Pulse Pulse Resp BP BP 09/17/18 11:52 37.1 C 69 16 137/67 09/17/18 09:34 74 09/17/18 07:21 37 C 77 16 131/71 09/17/18 04:20 67 09/17/18 04:00 37.0 C 66 18 152/78 H Pulse Ox 09/17/18 11:52 94 09/17/18 09:34 09/17/18 07:21 95 09/17/18 04:20 09/17/18 04:00 96 Laboratory Results Short CBC 09/17/18 Range/Units 05:17 WBC 6.14 (4.8-10.8) K/uL Hgb 10.2 L (12.0-16.0) g/dL Hct 30.6 L (37-47) % Plt Count 183 D (130-400) K/uL BMP 09/17/18 05:17 Sodium 138 Potassium 3.5 Chloride 103 Carbon Dioxide 28 BUN 5 L Creatinine 0.70 Glucose 141 H Calcium 8.0 L Liver Function 09/17/18 Range/Units 05:17 Total Bilirubin 0.8 (0.2-1) mg/dl Direct Bilirubin 0.3 H (0-0.2) mg/dl AST 154 H (15-37) U/L ALT 165 H (12-78) U/L Alkaline Phosphatase 264 H (45-117) U/L Albumin 2.4 L (3.4-5.0) gm/dl Medications Administered Current Inpatient Medications Acetaminophen (Tylenol) 650 mg PO Q4H PRN PRN Reason: Pain Stop: 10/16/18 12:34 Hydrocodone Bitart/Acetaminophen ([place] 5/325) 1 tab PO 3XDQ4 PRN PRN Reason: Pain Stop: 09/30/18 13:34 Last Admin: 09/17/18 11:08 Dose: 1 tab Documented by: Hydrocodone Bitart/Acetaminophen ([place] 5/325) 2 tab PO 3XDQ4 PRN PRN Reason: Pain Stop: 09/30/18 13:34 Last Admin: 09/17/18 00:06 Dose: 2 tab Documented by: Amitriptyline HCl (Elavil) 10 mg PO HS FLORENCIO Stop: 10/15/18 20:59 Last Admin: 09/16/18 20:23 Dose: 10 mg Documented by: Bisoprolol Fumarate (Bisoprolol Fumarate) 1 ea PO DAILY FLORENCIO Stop: 10/15/18 09:59 Last Admin: 09/17/18 08:26 Dose: 1 ea Documented by: Dextrose (Dextrose 50%) 25 - 50 ml IV UD PRN; Protocol PRN Reason: Hypoglycemia Protocol Stop: 10/14/18 22:31 Diphenhydramine HCl (Benadryl Capsule) 25 mg PO Q6H PRN PRN Reason: Itching Stop: 10/16/18 18:21 Glucagon (Glucagen) 1 mg SQ UD PRN; Protocol PRN Reason: Hypoglycemia Protocol Stop: 10/14/18 22:31 Glucose (Glucose 40%) 15 - 30 gm PO UD PRN; Protocol PRN Reason: Hypoglycemia Protocol Stop: 10/14/18 22:31 Glucose (Dex4 Glucose) 4 - 8 tabs PO UD PRN; Protocol PRN Reason: Hypoglycemia Protocol Stop: 10/14/18 22:31 Heparin Sodium (Porcine) (Heparin Sodium (Porcine)) 5,000 units SQ Q12 FLORENCIO Stop: 10/17/18 08:59 Last Admin: 09/17/18 08:26 Dose: 5,000 units Documented by: Hydromorphone HCl (Dilaudid) 0.5 mg IV Q3HWA PRN PRN Reason: Pain Stop: 09/30/18 13:34 Last Admin: 09/16/18 14:15 Dose: 0.5 mg Documented by: Hydromorphone HCl (Dilaudid) 1 mg IV Q3HWA PRN PRN Reason: Pain Stop: 09/30/18 13:34 Metronidazole (Flagyl) 500 mg in 100 mls @ 100 mls/hr IV Q8 FLORENCIO Stop: 09/24/18 22:44 Last Admin: 09/17/18 14:46 Dose: 100 mls/hr Documented by: Ciprofloxacin (Cipro) 400 mg in 200 mls @ 100 mls/hr IV Q12H FLORENCIO; Protocol Stop: 09/24/18 22:59 Last Infusion: 09/17/18 13:09 Dose: Infused Documented by: Promethazine HCl 25 mg/ Sodium (Chloride) 51 mls @ 204 mls/hr IV Q6H PRN PRN Reason: Nausea And Vomiting Stop: 10/16/18 13:34 Promethazine HCl 12.5 mg/ (Sodium Chloride) 50.5 mls @ 204 mls/hr IV Q6H PRN PRN Reason: Nausea And Vomiting Stop: 10/16/18 13:34 Insulin Aspart (Novolog Flexpen) 0 units SC ACHS [facility] Stop: 10/17/18 07:29 Last Admin: 09/17/18 12:46 Dose: 3 units Documented by: Insulin Glargine (Lantus Solostar Pen) 10 units SQ HS [facility] Stop: 10/15/18 20:59 Last Admin: 09/16/18 20:24 Dose: 10 units Documented by: Miscellaneous (Carbohydrates For Hypoglycemia) 15 - 30 gm PO UD PRN PRN Reason: Hypoglycemia Treatment Stop: 10/14/18 22:31 Miscellaneous Information (Ciprofloxacin Consult Active) 1 ea N/A UD PRN PRN Reason: Consult Stop: 10/14/18 22:17 Ondansetron HCl (Zofran) 4 mg IV 4XDQ4H PRN PRN Reason: Nausea Stop: 10/16/18 13:34 Pantoprazole Sodium (Protonix) 40 mg PO BID [facility] Stop: 10/15/18 20:59 Last Admin: 09/17/18 08:26 Dose: 40 mg Documented by:
[2018-09-17] MEDS: ONDANSETRON INJ 2 MG/ML 2 ML VIAL IV PRN (17:34)
[2018-09-17] MEDS: AMITRIPTYLINE HCL 10 MG TAB PO SCH (21:04)
[2018-09-17] MEDS: INSULIN GLARGINE SOLOSTAR 100 UNITS/ML 3 ML PEN SQ SCH (21:06)
[2018-09-17 23:46] LABS: Albumin 2.8 G/DL (3.8-4.8); Alpha 1 Antitrypsin 184 MG/DL (83-199); Alpha 1 Globulin 0.4 G/DL (0.2-0.3); Alpha 2 Globulin 0.7 G/DL (0.5-0.9); Anti Nuclear Antibody Screen NEGATIVE (NEGATIVE); Beta-1-Globulin 0.4 G/DL (0.4-0.6); Beta-2-Globulin 0.4 G/DL (0.2-0.5); Ceruloplasmin 42 MG/DL (18-53); Gamma Globulin 1.6 G/DL (0.8-1.7); IgA Serum 352 mg/dL (47-310); Monoclonal Protein Band 1 DNR G/DL (NOT DETECTED); Monoclonal Protein Band 2 DNR G/DL (NOT DETECTED); Monoclonal Protein Band 3 DNR G/DL (NOT DETECTED); Smooth Muscle Antibody 1:20 TITER; Tis Trans IgA 1 U/mL (<4); Total Protein 6.3 G/DL (6.2-8.3)
[2018-09-18] MEDS: metroNIDAZOLE 500 MG/100 ML BAG IV SCH ×3 (05:40→22:19)
[2018-09-18 06:55] LABS: Basophils # (auto) 0.02 K/uL (0-0.2); Basophils % (auto) 0.3 %; Eosinophils % (auto) 1.6 %; Hematocrit (blood only) 31.4 % (37-47); Hemoglobin 10.2 g/dL (12.0-16.0); Immature Granulocytes # (auto) 0.04 K/uL (0.00-0.02); Immature Granulocytes % (auto) 0.6 %; Lymphocytes # (auto) 2.14 K/uL (1.2-3.4); Mean Corpuscular Hgb Conc 32.5 g/dL (32-36); Mean Corpuscular Volume 79.9 fL (80-100); Mean Platelet Volume 10.5 fL (7.4-10.4); Monocytes # (auto) 0.81 K/uL (0.11-0.59); Monocytes % (auto) 12.9 %; Neutrophils # (auto) 3.19 K/uL (1.4-6.5); Neutrophils % (auto) 50.6 %; Platelet Count 207 K/uL (130-400); RDW Coefficient of Variation 14.7 % (11.5-14.5); RDW Standard Deviation 42.8 fL (36.4-46.3); Red Blood Count 3.93 M/uL (4.2-5.4)
[2018-09-18] MEDS: PANTOprazole 40 MG TAB PO SCH ×2 (07:28→21:07)
[2018-09-18] MEDS: BISOPROLOL FUMARATE PO SCH (07:28)
[2018-09-18 07:32] LABS: Albumin Level 2.4 gm/dl (3.4-5.0); BUN Creatinine Ratio 6.2 (10-20); Calcium 7.8 mg/dl (8.5-10.1); Creatinine Clr Calc Pharmacy 90.5 ml/min; Est GFR (African American) 117.9; Est GFR (Non-African American) 101.7; Potassium 3.1 mmol/L (3.5-5.1)
[2018-09-18 07:35] LABS: Albumin Globulin Ratio 0.5 (0.9-2); Bilirubin,Total 0.8 mg/dl (0.2-1); Globulin 4.4 gm/dl (2.5-4.0); Total Protein 6.8 gm/dl (6.4-8.2)
[2018-09-18] MEDS: HEPARIN SOD 5,000 UNIT/0.5 ML VIAL SQ SCH ×2 (08:26→21:06)
[2018-09-18] MEDS: INSULIN ASPART 100 UNITS/ML 3 ML PEN SC SCH ×4 (08:26→21:08)
[2018-09-18] MEDS: CIPROFLOXACIN 400 MG/200 ML BAG IV SCH ×2 (10:25→23:27)
[2018-09-18] MEDS: POTASSIUM CHLORIDE 20 MEQ TABCR PO SCH (10:25)
--- NOTE | 2018-09-18 12:12 | Gastroenterology Progress Note ---
Date of Service September 18, 2018 Assessment & Plan (1) Abnormal LFTs: (2) Abdominal pain: Pt is a 53 y/o female w n/v, diarrhea, abd pain x 9 days, noted to have elevated LFTs on eval and possible gallbladder wall thickening, duodenum inflammation. EGD on 09/15 unremarkable. Her LFTs are decreasing and she's w/o abd pain today. ? biliary colic. S/P lap cholecystectomy by Dr. Lance leyva intra op cholangiogram (IOC) on 09/16, IOC negative for biliary obstruction. - No indication for ERCP - Trend LFTs and serologies to r/o infectious, hepatitis, AIH, hereditary liver diseases - Stool studies: Cx negative, Cdiff (not performed due to formed stool). - Recommend DC'ing at least Flagyl for nausea/vomiting. - Path from EGD on 09/15 showed chronic inactive gastritis, no Hpylori, metaplasia, dysplasia. However + intraepithelial lymphocytosis ? celiac disease vs infectious, autoimmune processes, Crohns. Celiac serologies pending. I have given her daughter information about celiac disease, gluten free diet. [employer] also consulted to provide education - Upon DC home will offer f/u appt in GI clinic. Though pt is currently self pay and daughter said pt may decide to go home to [facility] earlier then planned for continued care for her other chronic diseases. - GI to sign off; pls recall prn Supervising Physician Co-Signing Physician Notes I saw and evaluated the patient. The liver enzymes appear to be trending downward. I would suggest a repeat liver enzymes in approximately 2 weeks. If they are not resolved at that point and endoscopic ultrasound for evidence of a stone or perhaps an EUS guided liver biopsy. Subjective Pt had n/v yesterday but tolerated breakfast well. No abd pain. Did have some loose stools last night and this AM. LFTs improving some Review of Systems Review of Systems: All systems reviewed & are unremarkable except as noted in HPI & below Physical Exam Constitutional: WD/WN, vitals as above well groomed, cooperative and comfortable Eyes: PERRL, conjunctivae normal, anicteric sclerae ENMT: external ear and nose normal, oropharynx normal Respiratory: normal respiratory effort, lungs clear to auscultation Cardiovascular: RRR, no murmur, no edema Gastrointestinal (Abdomen): normal bowel sounds, soft, nontender, no hepat osplenomegaly Percussion/Palpation: + abdomen tender (at post cholecystectomy trocar sites. ) and abdomen soft Skin: no rashes, warm and dry no jaundice Psychiatric: A+Ox3, euthymic affect Lymphatic: no lymphedema Results & Data Vital Signs (Past 12 Hours) Vital Signs Temp Pulse Pulse Resp BP BP Pulse Ox 09/18/18 11:35 36.9 C 66 18 133/74 93 09/18/18 08:00 69 09/18/18 07:42 36.9 C 72 18 132/78 92 09/18/18 04:00 37.1 C 77 20 136/82 92
[2018-09-18] MEDS: ONDANSETRON INJ 2 MG/ML 2 ML VIAL IV PRN (12:30)
--- NOTE | 2018-09-18 12:33 | Surgery Progress Note ---
Date of Service September 18, 2018 Assessment & Plan (1) Cholecystitis: POD lap suraj pathology showed acute & chronic cholecystitis abdomen benign had diarrhea on admission, would recommend GI follow-up Subjective vomited last night, not much appetite, 4 loose BMs Physical Exam Gastrointestinal (Abdomen): Inspection/Auscultation: abdomen not distended Percussion/Palpation: abdomen soft wounds clean and dry Results & Data Vital Signs (Past 12 Hours) Vital Signs Temp Pulse Pulse Resp BP BP Pulse Ox 09/18/18 11:35 36.9 C 66 18 133/74 93 09/18/18 08:00 69 09/18/18 07:42 36.9 C 72 18 132/78 92 09/18/18 04:00 37.1 C 77 20 136/82 92
--- NOTE | 2018-09-18 15:31 | Hospitalist Progress Note ---
Date of Service September 18, 2018 Assessment & Plan (1) Transaminitis: Improved, EGD normal on 09/15 GI workup -chronic inactive gastritis, no HP, metaplasia, dysplasia intraepithelial lymphocytosisceliac/infectious/autoimmune process Hepatitis markers negative and serology negative so far. Biopsy did show evidence of celiac disease which may be the cause of ongoing diarrhea LFTs are improving Nutrition consult to continue with gluten-free diet (2) Cholecystitis: Status post laparoscopic cholecystectomy with intraoperative cholangiogram Negative cholangiogram for any stone No need to have ERCP Appreciate surgery input and recommendation Clears started and if tolerated will advance accordingly Likely discharge tomorrow if stable Has no ataxia but otherwise tolerating diet Advised to ambulate more Has been having diarrhea since surgery Likely secondary to use of antibiotic with Cipro and Flagyl Stool is negative for C. difficile toxin Can have Imodium to decrease the frequency (3) Diabetes mellitus: Hold oral medications, ISS with carb coverage while hospitalized. A1C is 9.4 reflecting poor control. She is new to the , and needs to establish PCP while she is here. Would recommend she take her Janumet twice daily instead of just qPM, and would continue her oral sulfonylurea. Discussed with the daughter Diabetic education We will continue outpatient oral antidiabetic medications on discharge (4) HTN (hypertension): controlled, cont bisoprolol (5) Depression: cont amitryptiline per home regimen, the patient denies chronic pain. (6) Thrombocytopenia: poss 2/2 infection. No bleeding. Cont to monitor with CBC in am. (7) DVT prophylaxis: SCDs in setting of recent operation and thrombocytopenia. Re-evaluate this daily. Full Code Dispo-pending clinical improvement and surgical clearance for discharge. Likely discharge tomorrow Subjective 09/17 The patient was seen and examined in medical telemetry unit in presence of the daughter She is a 53-year-old female with significant past medical history of type 2 diabetes, hypertension,chronic anemia, mood disorder and gallbladder disease was admitted with abdominal pain, diarrhea prior to admission Noted to have acute cholecystitis and underwent laparoscopic cholecystectomy on 09/16 Has been complaining of pain in the abdomen some distention Clears have been started orally 09/18 Patient was seen and examined in medical telemetry unit She is a status post laparoscopic cholecystectomy Continues to diarrhea Her abdominal pain and distention are better She has been ambulating with some difficulty and has anorexia Review of Systems Review of Systems: All systems reviewed and are unremarkable except as noted below Constitutional: + fatigue and + weakness Gastrointestinal: + abdominal pain and + bloating; no nausea and no vomiting Physical Exam Physical Exam: Lying in bed with minimal distress Constitutional: + ill appearing, well groomed, cooperative and comfortable Eyes: PERRL, conjunctivae normal, anicteric sclerae ENMT: external ear and nose normal, oropharynx normal Mouth: no dentition abnormality Mallampati Class: II Neck: normal visual inspection Respiratory: normal respiratory effort; no respiratory distress Auscultation: lungs clear to auscultation bilaterally Cardiovascular: Rate/Rhythm: regular rate and regular rhythm Heart Sounds: no murmur Gastrointestinal (Abdomen): Inspection/Auscultation: + abdomen distended and normal bowel sounds Percussion/Palpation: + abdomen tender (at post cholecystectomy trocar sites. ) and abdomen soft Skin: no rashes, warm and dry no jaundice Neurologic: Motor/Sensory: no asterixis Psychiatric: A+Ox3, euthymic affect Orientation: alert Lymphatic: no lymphedema Results & Data Vital Signs (Past 12 Hours) Vital Signs Temp Pulse Pulse Resp BP BP Pulse Ox 09/18/18 11:35 36.9 C 66 18 133/74 93 09/18/18 08:00 69 09/18/18 07:42 36.9 C 72 18 132/78 92 09/18/18 04:00 37.1 C 77 20 136/82 92 Laboratory Results Short CBC 09/18/18 Range/Units 06:32 WBC 6.30 (4.8-10.8) K/uL Hgb 10.2 L (12.0-16.0) g/dL Hct 31.4 L (37-47) % Plt Count 207 (130-400) K/uL BMP 09/18/18 06:32 Sodium 135 L Potassium 3.1 L Chloride 100 Carbon Dioxide 29 BUN 4 L Creatinine 0.63 Glucose 162 H Calcium 7.8 L Liver Function 09/18/18 Range/Units 06:32 Total Bilirubin 0.8 (0.2-1) mg/dl AST 103 H (15-37) U/L ALT 132 H (12-78) U/L Alkaline Phosphatase 247 H (45-117) U/L Albumin 2.4 L (3.4-5.0) gm/dl Medications Administered Current Inpatient Medications Acetaminophen (Tylenol) 650 mg PO Q4H PRN PRN Reason: Pain Stop: 10/16/18 12:34 Hydrocodone Bitart/Acetaminophen ([place] 5/325) 1 tab PO 3XDQ4 PRN PRN Reason: Pain Stop: 09/30/18 13:34 Last Admin: 09/17/18 11:08 Dose: 1 tab Documented by: Hydrocodone Bitart/Acetaminophen ([place] 5/325) 2 tab PO 3XDQ4 PRN PRN Reason: Pain Stop: 09/30/18 13:34 Last Admin: 09/17/18 00:06 Dose: 2 tab Documented by: Amitriptyline HCl (Elavil) 10 mg PO HS [facility] Stop: 10/15/18 20:59 Last Admin: 09/17/18 21:04 Dose: 10 mg Documented by: Bisoprolol Fumarate (Bisoprolol Fumarate) 1 ea PO DAILY [facility] Stop: 10/15/18 09:59 Last Admin: 09/18/18 07:28 Dose: 1 ea Documented by: Dextrose (Dextrose 50%) 25 - 50 ml IV UD PRN; Protocol PRN Reason: Hypoglycemia Protocol Stop: 10/14/18 22:31 Diphenhydramine HCl (Benadryl Capsule) 25 mg PO Q6H PRN PRN Reason: Itching Stop: 10/16/18 18:21 Glucagon (Glucagen) 1 mg SQ UD PRN; Protocol PRN Reason: Hypoglycemia Protocol Stop: 10/14/18 22:31 Glucose (Glucose 40%) 15 - 30 gm PO UD PRN; Protocol PRN Reason: Hypoglycemia Protocol Stop: 10/14/18 22:31 Glucose (Dex4 Glucose) 4 - 8 tabs PO UD PRN; Protocol PRN Reason: Hypoglycemia Protocol Stop: 10/14/18 22:31 Heparin Sodium (Porcine) (Heparin Sodium (Porcine)) 5,000 units SQ Q12 [facility]ENC[facility] Stop: 10/17/18 08:59 Last Admin: 09/18/18 08:26 Dose: 5,000 units Documented by: Hydromorphone HCl (Dilaudid) 0.5 mg IV Q3HWA PRN PRN Reason: Pain Stop: 09/30/18 13:34 Last Admin: 09/16/18 14:15 Dose: 0.5 mg Documented by: Hydromorphone HCl (Dilaudid) 1 mg IV Q3HWA PRN PRN Reason: Pain Stop: 09/30/18 13:34 Metronidazole (Flagyl) 500 mg in 100 mls @ 100 mls/hr IV Q8 [facility] Stop: 09/24/18 22:44 Last Admin: 09/18/18 13:19 Dose: 100 mls/hr Documented by: Ciprofloxacin (Cipro) 400 mg in 200 mls @ 100 mls/hr IV Q12H [facility]ORENCIO; Protocol Stop: 09/24/18 22:59 Last Infusion: 09/18/18 12:25 Dose: Infused Documented by: Promethazine HCl 25 mg/ Sodium (Chloride) 51 mls @ 204 mls/hr IV Q6H PRN PRN Reason: Nausea And Vomiting Stop: 10/16/18 13:34 Promethazine HCl 12.5 mg/ (Sodium Chloride) 50.5 mls @ 204 mls/hr IV Q6H PRN PRN Reason: Nausea And Vomiting Stop: 10/16/18 13:34 Insulin Aspart (Novolog Flexpen) 0 units SC ACHS [facility] Stop: 10/17/18 07:29 Last Admin: 09/18/18 12:26 Dose: 2 units Documented by: Insulin Glargine (Lantus Solostar Pen) 10 units SQ HS [facility] Stop: 10/15/18 20:59 Last Admin: 09/17/18 21:06 Dose: 10 units Documented by: Miscellaneous (Carbohydrates For Hypoglycemia) 15 - 30 gm PO UD PRN PRN Reason: Hypoglycemia Treatment Stop: 10/14/18 22:31 Miscellaneous Information (Ciprofloxacin Consult Active) 1 ea N/A UD PRN PRN Reason: Consult Stop: 10/14/18 22:17 Ondansetron HCl (Zofran) 4 mg IV 4XDQ4H PRN PRN Reason: Nausea Stop: 10/16/18 13:34 Last Admin: 09/18/18 12:30 Dose: 4 mg Documented by: Pantoprazole Sodium (Protonix) 40 mg PO BID [facility] Stop: 10/15/18 20:59 Last Admin: 09/18/18 07:28 Dose: 40 mg Documented by: Potassium Chloride (Klor-Con M20) 40 meq PO QAM [facility] Stop: 10/18/18 09:59 Last Admin: 09/18/18 10:25 Dose: 40 meq Documented by:
[2018-09-18] MEDS: AMITRIPTYLINE HCL 10 MG TAB PO SCH (21:06)
[2018-09-18] MEDS: INSULIN GLARGINE SOLOSTAR 100 UNITS/ML 3 ML PEN SQ SCH (21:09)
[2018-09-19 06:29] LABS: Basophils # (auto) 0.01 K/uL (0-0.2); Basophils % (auto) 0.2 %; Eosinophils % (auto) 1.7 %; Hematocrit (blood only) 31.1 % (37-47); Hemoglobin 9.9 g/dL (12.0-16.0); Immature Granulocytes # (auto) 0.03 K/uL (0.00-0.02); Immature Granulocytes % (auto) 0.5 %; Lymphocytes # (auto) 2.48 K/uL (1.2-3.4); Lymphocytes % (auto) 42.4 %; Mean Corpuscular Hemoglobin 25.4 pg (25-34); Mean Corpuscular Hgb Conc 31.8 g/dL (32-36); Mean Corpuscular Volume 79.7 fL (80-100); Mean Platelet Volume 10.4 fL (7.4-10.4); Monocytes # (auto) 0.74 K/uL (0.11-0.59); Monocytes % (auto) 12.6 %; Neutrophils # (auto) 2.49 K/uL (1.4-6.5); Neutrophils % (auto) 42.6 %; Platelet Count 273 K/uL (130-400); RDW Coefficient of Variation 14.8 % (11.5-14.5); RDW Standard Deviation 42.5 fL (36.4-46.3); White Blood Count 5.85 K/uL (4.8-10.8)
[2018-09-19] MEDS: metroNIDAZOLE 500 MG/100 ML BAG IV SCH (06:32)
--- NOTE | 2018-09-19 06:37 | Progress Note ---
Date of Service September 19, 2018 Assessment & Plan (1) Cholecystitis: LFTs trending down, had bm, vitals stable had some loose bm yesterday stable from surg stdpt addnl w/u per Med/GI team will check in office next week Subjective see a/p Results & Data Vital Signs (Past 12 Hours) Vital Signs Temp Pulse Pulse Pulse Resp BP BP 09/19/18 04:48 36.9 C 71 18 111/65 09/19/18 01:06 76 09/19/18 00:00 37.0 C 71 20 123/69 09/18/18 20:00 37.1 C 61 20 138/81 Pulse Ox 09/19/18 04:48 94 09/19/18 01:06 09/19/18 00:00 93 09/18/18 20:00 94
[2018-09-19 07:07] LABS: Albumin Globulin Ratio 0.6 (0.9-2); Albumin Level 2.5 gm/dl (3.4-5.0); BUN Creatinine Ratio 5.1 (10-20); Bilirubin,Total 0.6 mg/dl (0.2-1); Est GFR (African American) 111.9; Est GFR (Non-African American) 96.6; Globulin 4.4 gm/dl (2.5-4.0); Magnesium 1.9 mg/dl (1.8-2.4); Potassium 3.6 mmol/L (3.5-5.1); Total Protein 6.9 gm/dl (6.4-8.2)
[2018-09-19] MEDS: BISOPROLOL FUMARATE PO SCH (08:02)
[2018-09-19] MEDS: POTASSIUM CHLORIDE 20 MEQ TABCR PO SCH (08:02)
[2018-09-19] MEDS: PANTOprazole 40 MG TAB PO SCH (08:02)
[2018-09-19] MEDS: INSULIN ASPART 100 UNITS/ML 3 ML PEN SC SCH ×2 (08:50→12:52)
[2018-09-19] MEDS: HEPARIN SOD 5,000 UNIT/0.5 ML VIAL SQ SCH (08:52)
--- NOTE | 2018-09-19 11:53 | Hospitalist Progress Note ---
Date of Service September 19, 2018 Assessment & Plan (1) Transaminitis: Improved, EGD normal on 09/15 GI workup -chronic inactive gastritis, no HP, metaplasia, dysplasia intraepithelial lymphocytosisceliac/infectious/autoimmune process Hepatitis markers negative and serology negative so far but a few more pending Biopsy did show evidence of celiac disease which may be the cause of ongoing diarrhea LFTs are improving and much better as of today 09/19 Nutrition consult to continue with gluten-free diet (2) Cholecystitis: Status post laparoscopic cholecystectomy with intraoperative cholangiogram Negative cholangiogram for any stone No need to have ERCP Appreciate surgery input and recommendation Clears started and if tolerated will advance accordingly Likely discharge tomorrow if stable Has no ataxia but otherwise tolerating diet Advised to ambulate more Without surgery follow-up as an outpatient within 7 days Has been having diarrhea since surgery Likely secondary to use of antibiotic with Cipro and Flagyl Stool is negative for C. difficile toxin Can have Imodium to decrease the frequency Clinically not better without any more diarrhea (3) Diabetes mellitus: Hold oral medications, ISS with carb coverage while hospitalized. A1C is 9.4 reflecting poor control. [place] new to the [place], and needs to establish PCP while she is here. Would recommend she take her Janumet twice daily instead of just qPM, and would continue her oral sulfonylurea. Discussed with the daughter Diabetic education We will continue outpatient oral antidiabetic medications on discharge (4) HTN (hypertension): controlled, cont bisoprolol (5) Depression: cont amitryptiline per home regimen, the patient denies chronic pain. (6) Thrombocytopenia: poss 2/2 infection. No bleeding. Cont to monitor with CBC in am. Platelets count normalized (7) DVT prophylaxis: SCDs in setting of recent operation and thrombocytopenia. Re-evaluate this daily. Full Code Dispo-pending clinical improvement and surgical clearance for discharge. Will discharge today Subjective 09/17 The patient was seen and examined in medical telemetry unit in presence of the daughter She is a 53-year-old female with significant past medical history of type 2 diabetes, hypertension,chronic anemia, mood disorder and gallbladder disease was admitted with abdominal pain, diarrhea prior to admission Noted to have acute cholecystitis and underwent laparoscopic cholecystectomy on 09/16 Has been complaining of pain in the abdomen some distention Clears have been started orally 09/18 Patient was seen and examined in medical telemetry unit She is a status post laparoscopic cholecystectomy Continues to diarrhea Her abdominal pain and distention are better She has been ambulating with some difficulty and has anorexia 09/19 The patient was seen and examined in medical telemetry unit He has been feeling a lot better as of today Ambulating in the hallways without any symptoms Diarrhea is controlled Review of Systems Review of Systems: All systems reviewed and are unremarkable except as noted below Constitutional: + fatigue and + weakness Gastrointestinal: + nausea; no vomiting Physical Exam Constitutional: + ill appearing, well groomed, cooperative and comfortable Eyes: PERRL, conjunctivae normal, anicteric sclerae ENMT: external ear and nose normal, oropharynx normal Mouth: no dentition abnormality Mallampati Class: II Neck: normal visual inspection Respiratory: normal respiratory effort; no respiratory distress Auscultation: lungs clear to auscultation bilaterally Cardiovascular: Rate/Rhythm: regular rate and regular rhythm Heart Sounds: no murmur Gastrointestinal (Abdomen): Inspection/Auscultation: + abdomen distended and normal bowel sounds Percussion/Palpation: + abdomen tender (at post cholecystectomy trocar sites. ) and abdomen soft Skin: no rashes, warm and dry no jaundice Neurologic: Motor/Sensory: no asterixis Psychiatric: A+Ox3, euthymic affect Orientation: alert Lymphatic: no lymphedema Results & Data Vital Signs (Past 12 Hours) Vital Signs Temp Pulse Pulse Pulse Resp BP Pulse Ox 09/19/18 09:00 69 09/19/18 07:20 37.1 C 72 18 147/81 H 93 09/19/18 04:48 36.9 C 71 18 111/65 94 09/19/18 01:06 76 09/19/18 00:00 37.0 C 71 20 123/69 93 Laboratory Results Short CBC 09/19/18 Range/Units 05:54 WBC 5.85 (4.8-10.8) K/uL Hgb 9.9 L (12.0-16.0) g/dL Hct 31.1 L (37-47) % Plt Count 273 (130-400) K/uL BMP 09/19/18 05:54 Sodium 137 Potassium 3.6 D Chloride 104 Carbon Dioxide 29 BUN 4 L Creatinine 0.71 Glucose 188 H Calcium 8.0 L Liver Function 09/19/18 Range/Units 05:54 Total Bilirubin 0.6 (0.2-1) mg/dl AST 51 H (15-37) U/L ALT 98 H (12-78) U/L Alkaline Phosphatase 213 H (45-117) U/L Albumin 2.5 L (3.4-5.0) gm/dl Medications Administered Current Inpatient Medications Acetaminophen (Tylenol) 650 mg PO Q4H PRN PRN Reason: Pain Stop: 10/16/18 12:34 Hydrocodone Bitart/Acetaminophen ([place] 5/325) 1 tab PO 3XDQ4 PRN PRN Reason: Pain Stop: 09/30/18 13:34 Last Admin: 09/17/18 11:08 Dose: 1 tab Documented by: Hydrocodone Bitart/Acetaminophen ([place] 5/325) 2 tab PO 3XDQ4 PRN PRN Reason: Pain Stop: 09/30/18 13:34 Last Admin: 09/17/18 00:06 Dose: 2 tab Documented by: Amitriptyline HCl (Elavil) 10 mg PO HS FLORENCIO Stop: 10/15/18 20:59 Last Admin: 09/18/18 21:06 Dose: 10 mg Documented by: Bisoprolol Fumarate (Bisoprolol Fumarate) 1 ea PO DAILY FLORENCIO Stop: 10/15/18 09:59 Last Admin: 09/19/18 08:02 Dose: 1 ea Documented by: Ciprofloxacin (Cipro) 500 mg PO BID FLORENCIO; Protocol Stop: 09/25/18 20:59 Dextrose (Dextrose 50%) 25 - 50 ml IV UD PRN; Protocol PRN Reason: Hypoglycemia Protocol Stop: 10/14/18 22:31 Diphenhydramine HCl (Benadryl Capsule) 25 mg PO Q6H PRN PRN Reason: Itching Stop: 10/16/18 18:21 Glucagon (Glucagen) 1 mg SQ UD PRN; Protocol PRN Reason: Hypoglycemia Protocol Stop: 10/14/18 22:31 Glucose (Glucose 40%) 15 - 30 gm PO UD PRN; Protocol PRN Reason: Hypoglycemia Protocol Stop: 10/14/18 22:31 Glucose (Dex4 Glucose) 4 - 8 tabs PO UD PRN; Protocol PRN Reason: Hypoglycemia Protocol Stop: 10/14/18 22:31 Heparin Sodium (Porcine) (Heparin Sodium (Porcine)) 5,000 units SQ Q12 FLORENCIO Stop: 10/17/18 08:59 Last Admin: 09/19/18 08:52 Dose: 5,000 units Documented by: Hydromorphone HCl (Dilaudid) 0.5 mg IV Q3HWA PRN PRN Reason: Pain Stop: 09/30/18 13:34 Last Admin: 09/16/18 14:15 Dose: 0.5 mg Documented by: Hydromorphone HCl (Dilaudid) 1 mg IV Q3HWA PRN PRN Reason: Pain Stop: 09/30/18 13:34 Promethazine HCl 25 mg/ Sodium (Chloride) 51 mls @ 204 mls/hr IV Q6H PRN PRN Reason: Nausea And Vomiting Stop: 10/16/18 13:34 Promethazine HCl 12.5 mg/ (Sodium Chloride) 50.5 mls @ 204 mls/hr IV Q6H PRN PRN Reason: Nausea And Vomiting Stop: 10/16/18 13:34 Insulin Aspart (Novolog Flexpen) 0 units SC ACHS [facility] Stop: 10/17/18 07:29 Last Admin: 09/19/18 08:50 Dose: 1 units Documented by: Insulin Glargine (Lantus Solostar Pen) 10 units SQ HS FLORENCIO Stop: 10/15/18 20:59 Last Admin: 09/18/18 21:09 Dose: 10 units Documented by: Miscellaneous (Carbohydrates For Hypoglycemia) 15 - 30 gm PO UD PRN PRN Reason: Hypoglycemia Treatment Stop: 10/14/18 22:31 Miscellaneous Information (Ciprofloxacin Consult Active) 1 ea N/A UD PRN PRN Reason: Consult Stop: 10/14/18 22:17 Ondansetron HCl (Zofran) 4 mg IV 4XDQ4H PRN PRN Reason: Nausea Stop: 10/16/18 13:34 Last Admin: 09/18/18 12:30 Dose: 4 mg Documented by: Pantoprazole Sodium (Protonix) 40 mg PO BID [facility] Stop: 10/15/18 20:59 Last Admin: 09/19/18 08:02 Dose: 40 mg Documented by: Potassium Chloride (Klor-Con M20) 40 meq PO QAM [facility] Stop: 10/18/18 09:59 Last Admin: 09/19/18 08:02 Dose: 40 meq Documented by:
--- NOTE | 2018-09-19 14:31 | Discharge Summary ---
Date of Service September 19, 2018 Admission HPI Per Admitting Provider History obtained from patient, family, and records. Limited history from patient secondary to communication barrier. Medical history significant for hypertension, DM 2 on oral meds, gallbladder disease as per daughter, chronic anemia (baseline hemoglobin of 10 as per patient), mood disorder Patient is visiting her daughter's family Meherrin from [facility]. Patient arrived last week and is going to be in the [place] for the next 3 months. Last year, patient developed abdominal pain symptoms attributed to gallbladder "sand" issues as per daughter. Antibiotics prescribed, no surgery recommended by physician as per family. Patient became sick a day after attending a [place] the [employer] last week. Achy upper abdominal pain associated with nausea vomiting, nonbloody diarrhea symptoms. Fever at home. Belly pain going to the chest and radiating to the back. No S OB. No headaches. Patient noted to be intermittently sleepy by family. No known sick contacts. No other sick family members/green party attendees to her knowledge. Patient self medicated with oral Cefixime prescribed by PCP from [facility] for patient to take as needed for any respiratory infections she may contract during her [place] vacation. At the ER, patient given Zosyn for cholecystitis. Admission Exam Per Admitting Provider Constitutional: + ill appearing, well groomed, cooperative and comfortable Eyes: PERRL, conjunctivae normal, anicteric sclerae ENMT: external ear and nose normal, oropharynx normal Mouth: no dentition abnormality Mallampati Class: II Neck: normal visual inspection Respiratory: normal respiratory effort; no respiratory distress Auscultation: lungs clear to auscultation bilaterally Cardiovascular: Rate/Rhythm: regular rate and regular rhythm Heart Sounds: no murmur Gastrointestinal (Abdomen): Inspection/Auscultation: + abdomen distended and normal bowel sounds Percussion/Palpation: + abdomen tender (at post suraj cystectomy trocar sites. ) and abdomen soft Skin: no rashes, warm and dry no jaundice Neurologic: Motor/Sensory: no asterixis Psychiatric: A+Ox3, euthymic affect Orientation: alert Lymphatic: no lymphedema Principal Diagnosis acute cholecystitis, celiac disease, type 2 diabetes Discharge Exam Constitutional + ill appearing, well groomed, cooperative and comfortable Eyes PERRL, conjunctivae normal, anicteric sclerae ENMT external ear and nose normal, oropharynx normal Mouth: no dentition abnormality Mallampati Class: II Neck normal visual inspection Respiratory normal respiratory effort; no respiratory distress Auscultation: lungs clear to auscultation bilaterally Cardiovascular Rate/Rhythm: regular rate and regular rhythm Heart Sounds: no murmur Gastrointestinal (Abdomen) Inspection/Auscultation: + abdomen distended and normal bowel sounds Percussion/Palpation: + abdomen tender (at post cholecystectomy trocar sites. ) and abdomen soft Skin no rashes, warm and dry no jaundice Neurologic Motor/Sensory: no asterixis Psychiatric A+Ox3, euthymic affect Orientation: alert Lymphatic no lymphedema Discharge Data Allergies Allergy/AdvReac Type Severity Reaction Status Date / Time No Known Allergies Allergy Unverified 09/14/18 17:48 Consultations 09/14/18 20:06 ED Decision to Admit Stat 09/14/18 22:32 Consult Case Management - Discharge Planning Routine Consult Gastroenterology Routine Procedures Performed Operation Date: 09/15/18 09:00 Actual Procedures p EGD Biopsy Cytology - Rick Crews Operation Date: 09/16/18 11:30 Actual Procedures p Laparoscopic Cholecystectomy, Cholangiogram - Fahad Lucas MD, FACS Ordered Studies 09/14/18 17:24 CT abd pelvis IV con only Stat 09/14/18 21:30 MR MRCP Urgent 09/14/18 21:31 CT head/brain wo con Urgent 09/16/18 [place] cholangiogram OR Routine Hospital Course (1) Transaminitis: Improved, EGD normal on 09/15 GI workup -chronic inactive gastritis, no HP, metaplasia, dysplasia intraepithelial lymphocytosisceliac/infectious/autoimmune process Hepatitis markers negative and serology negative so far but a few more pending Biopsy did show evidence of celiac disease which may be the cause of ongoing diarrhea LFTs are improving and much better as of today 09/19 Nutrition consult to continue with gluten-free diet (2) Cholecystitis: Status post laparoscopic cholecystectomy with intraoperative cholangiogram Negative cholangiogram for any stone No need to have ERCP Appreciate surgery input and recommendation Clears started and if tolerated will advance accordingly Likely discharge tomorrow if stable Has no ataxia but otherwise tolerating diet Advised to ambulate more Without surgery follow-up as an outpatient within 7 days Has been having diarrhea since surgery Likely secondary to use of antibiotic with Cipro and Flagyl Stool is negative for C. difficile toxin Can have Imodium to decrease the frequency Clinically not better without any more diarrhea (3) Diabetes mellitus: Hold oral medications, ISS with carb coverage while hospitalized. A1C is 9.4 reflecting poor control. [place] is new [place] the [place], and needs to establish PCP while she is here. Would recommend she take her Janumet twice daily instead of just qPM, and would continue her oral sulfonylurea. Discussed with the daughter Diabetic education We will continue outpatient oral antidiabetic medications on discharge (4) HTN (hypertension): controlled, cont bisoprolol (5) Depression: cont amitryptiline per home regimen, the patient denies chronic pain. (6) Thrombocytopenia: poss 2/2 infection. No bleeding. Cont to monitor with CBC in am. Platelets count normalized (7) DVT prophylaxis: SCDs in setting of recent operation and thrombocytopenia. Re-evaluate this daily. Full Code Dispo-pending clinical improvement and surgical clearance for discharge. Will discharge today Total Time Total Time Spent Total Time Spent (In Minutes): 35 minutes Total Time Includes: Examination of the Patient, Discharge Planning, Medication Reconciliation and Communication With Other Providers Discharge Plan Discharge Items Patient Disposition: Home - Self-Care Reason For Visit: HYPONATREMIA, CHOLECYSTITIS Discharge Diagnosis: acute cholecystitis, celiac disease, type 2 diabetes Condition: Good Discharge Goals: Decrease discomfort, Improve disease control and Improve function Activity: As commented below Activity Comment: light activity for 3 weeks Lifting: No more than 10 pounds Bathing Comment: may shower Sexual Activity: When tolerated Exercise Comment: wait 3 weeks Driving/Machine Use: Resume 3 days after discharge Non-emergency contact: Primary Care Provider and Surgeon Call non-emergency contact if: your pain is not controlled, your temperature is above 101 and your wound has increased drainage Follow-up/Referrals: Merle Aceves MD [Physician] - 09/22/18 10:05 am PCP,NO [Primary Care Provider] - Diet: Carb Consistent or DM2 and Gluten Free Addtl Provider Instructions: SPECIAL CARE INSTRUCTIONS: * Cover incisions and change daily for comfort/drainage. * Empty drain 2-3 times per day and record. * May use ibuprofen for pain as tolerated. * Expect some swelling and bruising. Call your doctor if: * Temperature above 101 degrees * Pain not relieved by pain medicine ordered * There is increased drainage or redness from any incision * You have any unanswered questions or concerns [phone]. FOLLOW UP VISIT: If not already scheduled, please call the office for a follow-up visit. OFFICE PHONE NUMBER: Dr. Lucas Office for next week- checkup Please follow the diabetic diet and gluten-free diet Your diabetes medications with as before Only new medicine is going to be Cipro for the next 5 days Prescriptions: New hydrocodone-acetaminophen [[place]] 5-325 mg tablet 1 - 2 tab PO Q4H Qty: 15 RF: 0 ciprofloxacin HCl 500 mg Tablet 500 mg PO BID 5 Days Qty: 10 RF: 0 Continued bisoprolol fumarate 5 mg Tablet 5 mg PO DAILY RF: 0 fluoxetine 20 mg Tablet 20 mg PO DAILY RF: 0 lansoprazole 30 mg Capsule,Delayed Release(Dr/Ec) 30 mg PO QAM RF: 0 Diapro 30 mg PO QAM RF: 0 Domperidone 10 mg PO QAM RF: 0 ondansetron HCl [Zofran] 4 mg Tablet 4 mg PO TID PRN (Reason: Nausea) RF: 0 amitriptyline 10 mg Tablet 10 mg PO HS RF: 0 olmesartan 40 mg Tablet 40 mg PO QPM RF: 0 sitagliptin-metformin 50-1,000 mg Tablet 1 tab PO QPM RF: 0 Discontinued metronidazole [Flagyl] 375 mg Capsule PO BID RF: 0 cefixime 200 mg Tablet,Chewable 200 mg PO Q12H RF: 0 Stand-Alone Forms: [facility] Discharge Orders: Discharge Order (Routine); Ordered 09/19/18 Ordered By: Vianney Waller Admission Data Admit Date/Time: 09/14/18 21:28 Attending Provider: Vianney Waller Admit Provider: Jeremie Palencia Primary Care Provider: PCP,NO Other Providers: Jeremie Palencia ; Ariel Elliott ; Melony Koehler Service: Telemetry Medical Other Interventions: Discharge Summary Assessment (RN) Last Done: 09/19/18 12:25
[2018-09-19 17:37] LABS: CMV IgM Antibody <30.00 Au/mL; Epstein Barr Virus Early Ag Ab < 9.00 U/ML; Herpes Simplex Ab IgG-1 >58.00 INDEX (< 0.90); Herpes Simplex Ab IgG-2 < 0.90 INDEX (< 0.90); Parvovirus IgG 5.9 (<0.9); Parvovirus IgM 0.1 (<0.9)
[2018-09-19] MEDS ORDERED: CIPROFLOXACIN 500 MG TAB PO SCH (21:00)
== END 2018-09-19 14:54 | disposition home or self-care (01) | DRG 418 ==
LOC: ED 16:49 → 2N 21:28 → SUATTDRO 21:28 → 2N 21:54

== ENCOUNTER 2018-10-20 22:39 | Inpatient (IN) ==
[2018-10-20] MEDS ORDERED: HYDROmorphone INJ 0.5 MG/0.5 ML SYR IV STA (23:14)
[2018-10-20] MEDS ORDERED: ACETAMINOPHEN 500 MG TAB PO STA (23:14)
[2018-10-20] MEDS ORDERED: SODIUM CHLORIDE 0.9% 500 ML IV ONE (23:14)
[2018-10-20 23:28] LABS: Appearance Urine Cloudy (Clear); Bilirubin Urine Negative (Negative); Blood Urine 1+ (Negative); Color Urine Yellow; Epithelial Cell Urine Auto >30 /lpf (0-5); Glucose Urine UA Negative (Negative); Ketones Urine Negative (Negative); Leukocyte Esterase Urine 2+ (Negative); Nitrite Urine Negative (Negative); Protein Urine 2+ (Negative); RBC Urine Automated 0-4 /hpf (0-4); Urobilinogen Urine Negative (Negative); WBC Urine Automated >30 /hpf (0-5); pH Urine 6.5 (4.5-7.5)
[2018-10-20 23:55] LABS: Basophils # (auto) 0.03 K/uL (0-0.2); Basophils % (auto) 0.3 %; Eosinophils # (auto) 0.15 K/uL (0-0.5); Eosinophils % (auto) 1.3 %; Hematocrit (blood only) 27.5 % (37-47); Hemoglobin 9.2 g/dL (12.0-16.0); Immature Granulocytes # (auto) 0.03 K/uL (0.00-0.02); Immature Granulocytes % (auto) 0.3 %; Lymphocytes # (auto) 2.54 K/uL (1.2-3.4); Lymphocytes % (auto) 22.7 %; Mean Corpuscular Hgb Conc 33.5 g/dL (32-36); Mean Corpuscular Volume 78.6 fL (80-100); Mean Platelet Volume 10.5 fL (7.4-10.4); Monocytes # (auto) 0.49 K/uL (0.11-0.59); Monocytes % (auto) 4.4 %; Neutrophils # (auto) 7.97 K/uL (1.4-6.5); Platelet Count 244 K/uL (130-400); RDW Coefficient of Variation 15.3 % (11.5-14.5); White Blood Count 11.21 K/uL (4.8-10.8)
[2018-10-21 00:11] LABS: Cast Urine Automated 0 /lpf (0-5); Mucus Urine Present (None Prsent)
[2018-10-21 00:12] LABS: Bacteria Urine Automated 1+ (Negative)
[2018-10-21 00:12] LABS: Albumin Level 3.4 gm/dl (3.4-5.0); BUN Creatinine Ratio 8.6 (10-20); Calcium 8.8 mg/dl (8.5-10.1); Creatinine Clr Calc Pharmacy 60.3 ml/min; Est GFR (African American) 81.8; Est GFR (Non-African American) 70.6; Potassium 3.6 mmol/L (3.5-5.1)
[2018-10-21 00:14] LABS: Partial Thromboplastin Ratio 0.9; Partial Thromboplastin Time 24.6 Seconds (21.0-31.0)
[2018-10-21 00:15] LABS: Albumin Globulin Ratio 0.7 (0.9-2); Bilirubin,Total 0.6 mg/dl (0.2-1); Globulin 4.8 gm/dl (2.5-4.0); Total Protein 8.2 gm/dl (6.4-8.2)
[2018-10-21] MEDS ORDERED: IOVERSOL 100ml IV PRN (00:34)
[2018-10-21] MEDS ORDERED: DAPTOmycin 500 MG in SYRINGE 0 ML IV STA (00:35)
[2018-10-21] MEDS ORDERED: IMIPENEM/CILASTATIN SODIUM 500 MG in DEXTROSE 5% 100 ML IV STA (00:35)
[2018-10-21] MEDS ORDERED: SODIUM CHLORIDE 0.9% 500 ML IV ONE (00:36)
[2018-10-21] MEDS ORDERED: SODIUM CHLORIDE 0.9% 500 ML IV SCH (00:45)
[2018-10-21] MEDS ORDERED: ONDANSETRON INJ 2 MG/ML 2 ML VIAL IV STA (03:08)
--- NOTE | 2018-10-21 03:32 | History and Physical Report ---
DATE OF ADMISSION: 10/21/2018 CHIEF COMPLAINT: Right flank pain and groin pain. HISTORY OF PRESENT ILLNESS: This is a 53-year-old female with past medical history significant for diabetes, hypertension, anemia, baseline hemoglobin around 10 as per the patient, depression. She is visiting her daughter's family in [place], she is from [facility].She was admitted on 09/19/2018 for gallbladder disease and status post cholecystectomy at that time and was discharged and has a followup appointment with surgery. At that time, she also had transaminitis which improved, but since the end of September she was having burning micturition and she took cefixime for 5 days which she brought from [facility]. Since then, but on and off, she is having low back pain and flank pain, but yesterday it got worse and she also developed some fever and feeling very weak. Walking a few steps is making her very weak and tired, loss of appetite. She thinks her tongue has become white. Has some mild headache, has some nausea. No vomiting, no chest pain, no shortness of breath, no cough. Has pain in the lower abdomen. No blood in the urine. Normal bowel movements. No blood in the stools or black stools, but since surgery she is having some diarrhea, but lately they are a little worse, says she is having 3 or 4 times of diarrhea. No swelling in the legs. Currently, hemodynamics are stable. Patient does not know Occ[place], daughter is the one who translates. ALLERGIES: No known drug allergies. PAST MEDICAL HISTORY: As mentioned above. PAST SURGICAL HISTORY: Cholecystectomy. FAMILY HISTORY: Diabetes. SOCIAL HISTORY: She is from [facility], visiting her daughter. No smoking history. No alcohol use, no drug use as per records. REVIEW OF SYMPTOMS: As per HPI. Rest of the review of symptoms negative. PHYSICAL EXAMINATION: GENERAL: The patient is of moderate build, not in acute distress. VITAL SIGNS: Temperature 38.4, pulse 104, blood pressure 128/88, oxygen 98% on room air. HEENT: No pallor, no icterus. Pupils equal, round, and reactive to light. NECK: No JVD, no neck masses, no carotid bruits. CARDIOVASCULAR: S1, S2 heard, regular rate and rhythm, no murmur, no gallop. RESPIRATORY SYSTEM: Normal AP diameter. No accessory muscle use. No wheezing, no crackles. ABDOMEN: Soft, bowel sounds present. Mild discomfort in the hypogastric region and right CVA tenderness present. No guarding, no rigidity, no distention. CENTRAL NERVOUS SYSTEM: Nonfocal. EXTREMITIES: No edema, no erythema. LABORATORY DATA: WBC 11.2, hemoglobin 9.2, hematocrit 27.5, platelets 244. PT 10, INR 1, APTT 24.6. Sodium 142, potassium 3.26, chloride 105, bicarbonate 27, BUN 8, creatinine 0.9, serum glucose 120. Lactate 1. Calcium 8.8, total bilirubin 0.6, AST 19, ALT 24, alkaline phosphatase 101. Urinalysis is cloudy, positive for leukocyte esterase. IMAGING DATA: Chest x-ray, no acute process seen. CT of abdomen and pelvis, unofficial report shows pyelitis. ASSESSMENT AND PLAN: This is a 53-year-old female who presents with urinary symptoms, failed outpatient treatment with cefixime. CAT scan unofficial report shows pyelitis. 1. Pyelitis, urinary tract infection. Failed outpatient treatment with cefixime, which she took in the end of September for 5 days. CAT scan unofficial report is showing pyelitis. We will follow the official report. May consider urology consult. Empirically starting with IV daptomycin and IV Primaxin. Follow the urine cultures and taper the antibiotics. She may need long-term course of antibiotics. IV fluids and clear liquid diet for now and closely monitor in the medical floor. 2. History of diabetes. Hold home p.o. medications. Placed on insulin sliding scale, currently on clear liquid diet. We will monitor the blood sugars, follow HbA1c levels. 3. History of hypertension, on olmesartan, will follow the blood pressure. History of high blood pressure, on olmesartan and bisoprolol. Will monitor the blood pressure. 4. History of depression, amitriptyline, fluoxetine. 5. History of gastroesophageal reflux disease, on lansoprazole. 6. History of chronic anemia, hemoglobin around 10 as per last admission. We will monitor. Hemoglobin is 9.2. Hx of celiac disease.We will follow stool for Hemoccult and also iron studies and vitamin B12 and folate levels. 7. Ongoing diarrhea. We will follow for stool cultures and C. diff studies. 8. Deep venous thrombosis prophylaxis, sequential compression devices for now. 9. Disposition: Admit to medical floor. Expect to discharge home and follow with the family doctor. Level 1 full code. MTDD
[2018-10-21] MEDS ORDERED: HYDROCODONE/ACETAMOPHEN 5/325MG TAB PO SCH (04:00)
[2018-10-21] MEDS ORDERED: IMIPENEM/CILASTATIN SODIUM 500 MG in DEXTROSE 5% 100 ML IV SCH (04:00)
[2018-10-21] MEDS ORDERED: ACETAMINOPHEN 325 MG TAB PO PRN (04:00)
[2018-10-21] MEDS ORDERED: ONDANSETRON INJ 2 MG/ML 2 ML VIAL IV PRN (04:00)
[2018-10-21] MEDS ORDERED: ONDANSETRON 4 MG TAB PO PRN (04:00)
[2018-10-21] MEDS ORDERED: IMIPENEM/CILASTATIN CONSULT ACTIVE PRN (04:03)
[2018-10-21] MEDS ORDERED: DAPTOMYCIN CONSULT ACTIVE PRN (04:08)
[2018-10-21] MEDS ORDERED: GLUCOSE 40% GEL 15 GM TUBE PO PRN (04:15)
[2018-10-21] MEDS ORDERED: CARBOHYDRATES FOR HYPOGLYCEMIA PO PRN (04:15)
[2018-10-21] MEDS ORDERED: GLUCAGON FOR INJ 1 MG VIAL SQ PRN (04:15)
[2018-10-21] MEDS ORDERED: GLUCOSE 10 TABS/TUBE PO PRN (04:15)
[2018-10-21] MEDS ORDERED: DEXTROSE 50% 50 ML SYRINGE IV PRN (04:15)
[2018-10-21] MEDS: SODIUM CHLORIDE 0.9% 1000ML 1,000 ML IV SCH ×3 (04:44→21:18)
--- NOTE | 2018-10-21 04:55 | Emergency Department Note ---
Entered by Luis Antonio Enciso acting as a scribe for History of Present Illness General Chief complaint: Back Injury/Pain Stated complaint: BACK, LOWER ABDOMEN/PELVIC PAIN Time Seen by Provider: 10/20/18 22:53 Source: family (daughter) History of Present Illness Onset (ago): day(s) (today) Location: abdomen (lower) Severity: similar to prior episodes Pain Consistency: + constant Maximum Pain Intensity: 8 Associated symptoms: + other (Positive for lower back pain, an increased frequency of urination, bilateral breast pain, and abdominal distention. Negative for nausea and vomiting.) The patient is a 53 year old female who presents to the emergency department with complaints of constant lower abdominal pain beginning today. Per daughter, the patient had a cholecystectomy done last month. She states that the patient was doing well until 10/06/2018 when she developed hot flashes, chills, and burning with urination. She notes that the patient then took Cefixime for a UTI and had some relief of her symptoms. She reports that the patient also currently has lower back pain, an increased frequency of urination, and bilateral breast pain. She states that the patient has been having breast pain for more than a month. She notes that the patient also feels as though her abdomen is distended. She reports that the patient has not had any nausea and vomiting. She states that the patients symptoms feel similar to her symptoms two weeks ago. She notes that the patient has a history of diabetes and hypertension, and she reports that the patient takes oral medication for her diabetes. She states that the patient had a mammogram done a year ago. Home Medications Home Medications Medication Instructions Recorded Confirmed Type amitriptyline 10 mg PO HS 09/14/18 10/20/18 History bisoprolol fumarate 5 mg PO DAILY 09/14/18 10/20/18 History fluoxetine 20 mg PO DAILY 09/14/18 10/20/18 History lansoprazole 30 mg PO QAM 09/14/18 10/20/18 History olmesartan 40 mg PO QPM 09/14/18 10/20/18 History ondansetron HCl [Zofran] 4 mg PO TID PRN 09/14/18 10/20/18 History sitagliptin-metformin 1 tab PO BIDM 09/14/18 10/20/18 History hydrocodone-acetaminophen [Eola] 1 - 2 tab PO Q4H #15 tab 09/18/18 10/20/18 Rx Domperidone 10 mg PO QAM 10/20/18 10/20/18 History cefixime [Suprax] 200 mg PO Q12H 10/20/18 10/20/18 History Allergies Allergy/AdvReac Type Severity Reaction Status Date / Time No Known Allergies Allergy Unverified 10/20/18 23:49 Past Med/Surg History Medical History HTN (hypertension) DVT prophylaxis Diabetes mellitus Depression Transaminitis Encounter for pre-operative examination Abdominal pain Cholecystitis Gallbladder disease (Acute) Hyponatremia (Acute) Anemia (Acute) Abnormal LFTs (Acute) Dehydration (Acute) Thrombocytopenia (Acute) Nausea & vomiting Diabetes Hypertension Surgical History Hx of cholecystectomy H/O esophagogastroduodenoscopy 09/15/18 with MAC Social History Preferred Language: [facility] Communication Ability: Effective Communication Tools: IPad and Other Continuity Tester Required: No Beliefs That Will Affect Care: None Current Living Situation: Spouse Feels Safe at Home: Yes Smoking Status: Never smoker Hx Alcohol Use: No Hx Substance Use: No Review of Systems See HPI for pertinent positives & negatives. and A total of 10 systems reviewed and were otherwise negative Physical Exam Vital Signs Vital Signs - 24 hr 10/20/18 22:40 10/20/18 23:14 10/21/18 00:17 Temperature 38.4 C H 37.0 C Temperature Source Oral Oral Sepsis Recent Fever Within 48 Hours No Sepsis Action Taken by Nursing No Action Required Pulse Rate 98 H Pulse Rate [Right Finger] 96 H Respiratory Rate 18 16 Respiratory Effort / Characteristics Non-Labored Spontaneous Non-Labored Spontaneous Respiratory Depth Normal Normal Respiratory Pattern Regular Regular Blood Pressure 147/79 H Blood Pressure [Left Arm] 135/77 Blood Pressure Mean 101 Blood Pressure Mean [Left Arm] 96 Blood Pressure Position Sitting Blood Pressure Position [Left Arm] Lying Pulse Oximetry 97 98 97 Oxygen Delivery Method Room Air Room Air Room Air 10/21/18 00:46 Temperature Temperature Source Sepsis Recent Fever Within 48 Hours Sepsis Action Taken by Nursing Pulse Rate Pulse Rate [Right Finger] 104 H Respiratory Rate 18 Respiratory Effort / Characteristics Non-Labored Spontaneous Respiratory Depth Normal Respiratory Pattern Regular Blood Pressure Blood Pressure [Left Arm] 128/88 Blood Pressure Mean Blood Pressure Mean [Left Arm] 101 Blood Pressure Position Blood Pressure Position [Left Arm] Lying Pulse Oximetry 98 Oxygen Delivery Method Room Air General: Appears uncomfortable and tachypneic. HEENT: Head - normocephalic and atraumatic Pupils are equal, round, and reactive to light. Extraocular eye muscles are intact, and sclera are anicteric. Nose - moist nasal mucosa without discharge. Mouth - moist buccal mucosa. Oropharynx is nonerythematous and there is no tonsillar exudate or edema noted. Neck: Supple; no JVD, nuchal rigidity, cervical lymphadenopathy. Heart: Regular rhythm and tachycardic. There is a normal S1 and S2 with no murmurs, clicks, or gallops appreciated. Lungs: Clear to auscultation bilaterally with no wheezes, rales, or rhonchi. Breasts: No palpable masses, no obvious erythema to the skin. Abdomen: Soft, nondistended, with good bowel sounds. There are no palpable pulsatile masses or hepatosplenomegaly. There is no rigidity or rebound noted. Exquisite tenderness in suprapubic region and RLQ with guarding. Extremities: No evidence of cyanosis, clubbing, or edema. There are easily palpable peripheral pulses. Skin: hot and dry with good turgor and no rashes. Course 2256: The patient was evaluated in room A10. A complete history and physical examination were performed. Nursing notes and previous electronic medical records were reviewed. IV lock was established and labs were drawn as above. A septic protocol was performed. A urine specimen was obtained. 2342: Acetaminophen 1000mg PO, Sodium Chloride 500 mls @ 999 mls/hr IV 2343: Hydromorphone HCl 0.5mg IV. The patient will go for CT scan of the abdomen/pelvis to rule out pyelonephritis versus appendicitis. 0054: Sodium Chloride 500 mls @ 999 mls/hr IV 0100: Daptomycin 500mg in Syringe 10 mls @ 5 mls/min IV, Imipenem/Cilastatin Sodium 500mg in Dextrose 110mls @ 100 mls/hr IV 0101: I reevaluated and updated the patient. She feels better after receiving pain medications. 0109: Sodium Chloride 500 mls @ 125 mls/hr IV 0124: Upon reevaluation, I discussed findings and results with the patient. She verbalized agreement of the treatment plan. I spoke with Dr. Hemphill of the [facility]. The patient will be evaluated for further management and care. 0158: I rechecked the patient. She is still comfortable and Dr. Hemphill is at bedside. Consultations Consultation #1: Discussed the patient's case with Dr. Hemphill - Hospitalist, [facility]. The patient will be evaluated for further management. Time: 01:24 Administered Medications Hydrocodone Bitart/Acetaminophen (Eola 5/325) 1 - 2 tab PO Q4H FLORENCIO Stop: 11/04/18 03:59 Last Admin: 10/21/18 04:44 Dose: 1 tab Documented by: [id number] Sodium Chloride (Nss 1000ml) 1,000 mls @ 125 mls/hr IV .Q8H FLORENCIO Stop: 11/20/18 03:59 Last Admin: 10/21/18 04:44 Dose: 125 mls/hr Documented by: [id number] Discontinued Medications Acetaminophen (Tylenol) 1,000 mg PO NOW STA Stop: 10/20/18 23:15 Last Admin: 10/20/18 23:42 Dose: 1,000 mg Documented by: [id number] Hydromorphone HCl (Dilaudid) 0.5 mg IV NOW STA Stop: 10/20/18 23:15 Last Admin: 10/20/18 23:43 Dose: 0.5 mg Documented by: [id number] Sodium Chloride (Nss) 500 mls @ 999 mls/hr IV .Q31M ONE Stop: 10/20/18 23:44 Last Infusion: 10/21/18 00:20 Dose: 0 mls/hr Documented by: [id number] Admin: 10/20/18 23:42 Dose: 999 mls/hr Documented by: [id number] Daptomycin 500 mg/ Syringe 10 mls @ 5 mls/min IV NOW STA; Protocol Stop: 10/21/18 00:36 Last Admin: 10/21/18 01:00 Dose: 5 mls/min Documented by: [id number] Imipenem/Cilastatin Sodium 500 (mg/ Dextrose) 110 mls @ 100 mls/hr IV NOW STA; Protocol Stop: 10/21/18 01:40 Last Infusion: 10/21/18 02:01 Dose: 0 mls/hr Documented by: [id number] Admin: 10/21/18 01:00 Dose: 100 mls/hr Documented by: [id number] Sodium Chloride (Nss) 500 mls @ 999 mls/hr IV .Q31M ONE Stop: 10/21/18 01:06 Last Infusion: 10/21/18 01:21 Dose: 0 mls/hr Documented by: [id number] Admin: 10/21/18 00:54 Dose: 999 mls/hr Documented by: [id number] Sodium Chloride (Nss) 500 mls @ 125 mls/hr IV .Q4H FLORENCIO Stop: 11/20/18 00:44 Last Infusion: 10/21/18 04:20 Dose: 0 mls/hr Documented by: [id number] Admin: 10/21/18 01:09 Dose: 125 mls/hr Documented by: [id number] Ioversol (Optiray 320 100ml) 100 ml IV ONCE PRN PRN Reason: Interaction Checking Stop: 10/25/18 00:33 Last Admin: 10/21/18 00:34 Dose: 93 ml Documented by: [id number] Ondansetron HCl (Zofran) 4 mg IV NOW STA Stop: 10/21/18 03:09 Last Admin: 10/21/18 03:11 Dose: 4 mg Documented by: [id number] Medical Decision Making Differential Diagnosis Differential diagnoses include: sepsis, appendicitis, cystitis, pyelonephritis, and diverticulitis. Medical Records Attestation: I reviewed the patient's medical records. Home Medications Current Medication List: was personally reviewed by me Laboratory Data Attestation: I reviewed the patient's lab results. Result diagrams: 10/20/18 23:31 10/20/18 23:31 Lab Results 10/20/18 10/20/18 10/20/18 Range/Units 23:05 23:31 23:31 WBC 11.21 H (4.8-10.8) K/uL RBC 3.50 L (4.2-5.4) M/uL Hgb 9.2 L (12.0-16.0) g/dL Hct 27.5 L (37-47) % MCV 78.6 L (80-100) fL MCH 26.3 (25-34) pg MCHC 33.5 (32-36) g/dL RDW Std Deviation 44.0 (36.4-46.3) fL RDW Coeff of Pk 15.3 H (11.5-14.5) % Plt Count 244 (130-400) K/uL MPV 10.5 H (7.4-10.4) fL Immature Gran % (Auto) 0.3 % Neut % (Auto) 71.0 % Lymph % (Auto) 22.7 % [place] % (Auto) 4.4 % Eos % (Auto) 1.3 % Baso % (Auto) 0.3 % Immature Gran # (Auto) 0.03 H (0.00-0.02) K/uL Neut # (Auto) 7.97 H (1.4-6.5) K/uL Lymph # (Auto) 2.54 (1.2-3.4) K/uL [place] # (Auto) 0.49 (0.11-0.59) K/uL Eos # (Auto) 0.15 (0-0.5) K/uL Baso # (Auto) 0.03 (0-0.2) K/uL PT 10.0 (9.0-12.0) Seconds INR 1.0 (0.9-1.1) APTT 24.6 (21.0-31.0) Seconds PTT Ratio 0.9 Sodium (136-145) mmol/L Potassium (3.5-5.1) mmol/L Chloride (98-107) mmol/L Carbon Dioxide (21-32) mmol/L Anion Gap (3-11) BUN (7-18) mg/dl Creatinine (0.6-1.2) mg/dl Est Cr Clr Drug Dosing ml/min Est GFR ( Amer) Est GFR (Non-Af Amer) BUN/Creatinine Ratio (10-20) Glucose (70-99) mg/dl Lactate (0.4-2.0) mmol/L Calcium (8.5-10.1) mg/dl Total Bilirubin (0.2-1) mg/dl AST (15-37) U/L ALT (12-78) U/L Alkaline Phosphatase (45-117) U/L Total Protein (6.4-8.2) gm/dl Albumin (3.4-5.0) gm/dl Globulin (2.5-4.0) gm/dl Albumin/Globulin Ratio (0.9-2) Urine Color Yellow Urine Appearance Cloudy A (Clear) Urine pH 6.5 (4.5-7.5) Ur Specific [place] 1.010 (1.000-1.030) Urine Protein 2+ H (Negative) Urine Glucose (UA) Negative (Negative) Urine Ketones Negative (Negative) Urine Blood 1+ H (Negative) Urine Nitrite Negative (Negative) Urine Bilirubin Negative (Negative) Urine Urobilinogen Negative (Negative) Ur Leukocyte Esterase 2+ H (Negative) Urine WBC (Auto) >30 H (0-5) /hpf Urine RBC (Auto) 0-4 (0-4) /hpf U Hyaline Cast (Auto) 0 (0-5) /lpf U Epithel Cells (Auto) >30 H (0-5) /lpf Urine Bacteria (Auto) 1+ H (Negative) Ur Renal Epithelial Cell Not Reportable Urine Mucus Present A (None Prsent) 10/20/18 10/20/18 Range/Units 23:31 23:31 WBC (4.8-10.8) K/uL RBC (4.2-5.4) M/uL Hgb (12.0-16.0) g/dL Hct (37-47) % MCV (80-100) fL MCH (25-34) pg MCHC (32-36) g/dL RDW Std Deviation (36.4-46.3) fL RDW Coeff of Pk (11.5-14.5) % Plt Count (130-400) K/uL MPV (7.4-10.4) fL Immature Gran % (Auto) % Neut % (Auto) % Lymph % (Auto) % [place] % (Auto) % Eos % (Auto) % Baso % (Auto) % Immature Gran # (Auto) (0.00-0.02) K/uL Neut # (Auto) (1.4-6.5) K/uL Lymph # (Auto) (1.2-3.4) K/uL [place] # (Auto) (0.11-0.59) K/uL Eos # (Auto) (0-0.5) K/uL Baso # (Auto) (0-0.2) K/uL PT (9.0-12.0) Seconds INR (0.9-1.1) APTT (21.0-31.0) Seconds PTT Ratio Sodium 142 (136-145) mmol/L Potassium 3.6 (3.5-5.1) mmol/L Chloride 105 (98-107) mmol/L Carbon Dioxide 27 (21-32) mmol/L Anion Gap 10.0 (3-11) BUN 8 (7-18) mg/dl Creatinine 0.92 (0.6-1.2) mg/dl Est Cr Clr Drug Dosing 60.3 ml/min Est GFR ( Amer) 81.8 Est GFR (Non-Af Amer) 70.6 BUN/Creatinine Ratio 8.6 L (10-20) Glucose 120 H (70-99) mg/dl Lactate 1.0 (0.4-2.0) mmol/L Calcium 8.8 (8.5-10.1) mg/dl Total Bilirubin 0.6 (0.2-1) mg/dl AST 19 (15-37) U/L ALT 24 (12-78) U/L Alkaline Phosphatase 101 (45-117) U/L Total Protein 8.2 (6.4-8.2) gm/dl Albumin 3.4 (3.4-5.0) gm/dl Globulin 4.8 H (2.5-4.0) gm/dl Albumin/Globulin Ratio 0.7 L (0.9-2) Urine Color Urine Appearance (Clear) Urine pH (4.5-7.5) Ur Specific [place] (1.000-1.030) Urine Protein (Negative) Urine Glucose (UA) (Negative) Urine Ketones (Negative) Urine Blood (Negative) Urine Nitrite (Negative) Urine Bilirubin (Negative) Urine Urobilinogen (Negative) Ur Leukocyte Esterase (Negative) Urine WBC (Auto) (0-5) /hpf Urine RBC (Auto) (0-4) /hpf U Hyaline Cast (Auto) (0-5) /lpf U Epithel Cells (Auto) (0-5) /lpf Urine Bacteria (Auto) (Negative) Ur Renal Epithelial Cell Urine Mucus (None Prsent) Imaging Data Attestation: I personally reviewed and interpreted this imaging study as foll ows: My Impression: CHEST X-RAY: No pulmonary infiltrate or consolidation. Radiologist's Impression: Radiology results as stated below per my review and the radiologist's interpretation: CT ABDOMEN & PELVIS With Contrast: Normal appendix. Bilateral pyelitis without evidence for pyelonephritis. Radiologist: Everette Dueñas MD. Blood Pressure Blood Pressure Findings: Normal blood pressure Blood Pressure Disposition: did not require urgent referral MDM Narrative The patient is a 53 year old female who presents to the emergency department with complaints of constant lower abdominal pain beginning today. The patient underwent cholecystectomy in September with a normal recovery. However on October 06, the patient developed urinary symptoms and fever. She started herself on cefixime which was an antibiotic she had [place]. The patient symptoms only seem to slightly improve but did not resolve completely. The patient developed increased urinary symptoms tonight, fevers, chills and moderate to severe abdominal pain. On physical exam, the patient's pain was concentrated in the right lower isha drant of the abdomen and suprapubic region. She was febrile and tachycardic on presentation. Her pain was controlled with Dilaudid. She received IV crystalloid therapy and a septic protocol was performed. She was treated with IV antibiotics. The patient had a mild leukocytosis at 11.2. Initially, her vitals seem to normalize but then she became tachycardic again. I believe this represents a failed outpatient treatment of urinary tract infection. CT scan shows no evidence of acute appendicitis or pyelonephritis. Stat rad interpreted this as pyelitis. I discussed the case with the [facility] Hospitalist and he will evaluate for further management. Impression & Plan UTI (urinary tract infection), Anemia Discharge Plan Visit Data *Final* Discharge Date/Time: 10/21/18 03:41 Chief Complaint: Back Injury/Pain Stated Complaint: BACK, LOWER ABDOMEN/PELVIC PAIN ED Provider: Radha Gomez Discharge Problem: UTI (urinary tract infection), Anemia Patient Disposition: Admitted As Inpatient Discharge Instructions Interventions: ED Discharge Assessment Last Done: 10/21/18 03:41 Discharge Problem: UTI (urinary tract infection) Qualifiers: Urinary tract infection type: site unspecified Hematuria presence: without hematuria Qualified Code(s): N39.0 - Urinary tract infection, site not specified Anemia Qualifiers: Anemia type: unspecified type Qualified Code(s): D64.9 - Anemia, unspecified The scribe's documentation has been prepared under my direction and personally reviewed by me in its entirety. I confirm that the note above accurately reflects all work, treatment, procedures, and medical decision making performed by me.
[2018-10-21] MEDS ORDERED: HYDROCODONE/ACETAMOPHEN 5/325MG TAB PO PRN (06:17)
--- NOTE | 2018-10-21 06:27 | XRay Report ---
XR chest 1V portable CLINICAL HISTORY: Sepsis COMPARISON STUDY: 09/14/2018 FINDINGS: The cardiac and mediastinal contours are normal. There is no evidence of focal pulmonary co nsolidation. There is no evidence of failure. No pleural effusions are visualized.[There is minimal l eft basilar atelectasis/scarring. There is mild prominence of the right paratracheal/azygous region, similar to the prior study. IMPRESSION: No active disease in the chest. Electronically signed by: Francisco Peña M.D. 10/21/2018 6:26 AM
[2018-10-21 07:02] LABS: Basophils # (auto) 0.02 K/uL (0-0.2); Basophils % (auto) 0.3 %; Eosinophils # (auto) 0.08 K/uL (0-0.5); Eosinophils % (auto) 1.1 %; Hematocrit (blood only) 27.5 % (37-47); Hemoglobin 8.8 g/dL (12.0-16.0); Immature Granulocytes # (auto) 0.01 K/uL (0.00-0.02); Immature Granulocytes % (auto) 0.1 %; Lymphocytes # (auto) 2.52 K/uL (1.2-3.4); Lymphocytes % (auto) 35.7 %; Mean Corpuscular Volume 79.3 fL (80-100); Mean Platelet Volume 10.6 fL (7.4-10.4); Monocytes # (auto) 0.32 K/uL (0.11-0.59); Monocytes % (auto) 4.5 %; Neutrophils # (auto) 4.11 K/uL (1.4-6.5); Neutrophils % (auto) 58.3 %; Platelet Count 212 K/uL (130-400); RDW Coefficient of Variation 15.3 % (11.5-14.5); RDW Standard Deviation 44.4 fL (36.4-46.3); Red Blood Count 3.47 M/uL (4.2-5.4); White Blood Count 7.06 K/uL (4.8-10.8)
[2018-10-21 07:34] LABS: BUN Creatinine Ratio 10.1 (10-20); Calcium 8.2 mg/dl (8.5-10.1); Creatinine Clr Calc Pharmacy 75.1 ml/min; Est GFR (African American) 106.5; Est GFR (Non-African American) 91.8; Magnesium 1.9 mg/dl (1.8-2.4); Potassium 3.6 mmol/L (3.5-5.1)
[2018-10-21] MEDS: PANTOprazole 40 MG TAB PO SCH (07:36)
[2018-10-21] MEDS: FLUOXETINE HCL 20 MG CAP PO SCH (07:36)
[2018-10-21 07:39] LABS: Ferritin 72.2 ng/ml (8-388)
--- NOTE | 2018-10-21 07:47 | CT Scan Report ---
CT abd pelvis IV con only CLINICAL HISTORY: 53 years-old Female presenting with right flank pain, eval for appy vs. pyelo. TECHNIQUE: Multidetector CT of the abdomen and pelvis was performed after the administration of intra venous contrast. IV contrast: 93 mL of Optiray 320. One or more dose lowering techniques were used co nsistent with the principles of ALARA (as low as reasonably achievable), including automatic exposure control, mA or kV adjustment to individual patient size, and/or use of iterative reconstruction. COMPARISON: 09/14/2018. CT DOSE (mGy.cm): The estimated cumulative dose is 343.45 mGy.cm. FINDINGS: Probe Operator topogram: Cholecystectomy clips. Lung bases: Normal heart size. No pericardial or pleural effusion. Minimal dependent changes likely a telectasis. Liver: Normal morphology. No liver lesion. Patent hepatic vasculature. Biliary: No intrahepatic or extrahepatic biliary ductal dilatation. Gallbladder surgically absent. Pancreas: Normal. Spleen: Normal. Adrenal glands: Normal. Kidneys and ureters: Normal enhancements of the renal parenchyma. No nephrolithiasis. Urothelial thic kening involving the renal pelvises and ureters with trace fat stranding in the regions of the renal pelvises and along the courses of the ureters, right greater than left. Ureters mildly distended with out evidence of ureteral calculus. Bladder: Normal. Pelvic organs: Uterus and ovaries normal. Bowel: Normal appendix. No bowel obstruction. Peritoneal cavity: No free fluid or intraperitoneal gas. Trace retroperitoneal fluid tracking along t he course of the ureters, right greater than left. Lymph nodes: No enlarged lymph nodes in the abdomen or pelvis. Vasculature: Aorta and IVC patent and normal in caliber. Abdominal wall: Normal. Musculoskeletal: Mild degenerative changes in the lower lumbar spine. IMPRESSION: 1. Inflammatory changes along the bilateral ureters and involving the renal pelvises is evidence of pyelitis, likely infectious. Correlate with urinalysis. No hydronephrosis. No CT evidence of pyelonep hritis. 2. Trace reactive retroperitoneal fluid. 3. Interval cholecystectomy. Electronically signed by: Donavan Cazares M.D. 10/21/2018 7:46 AM
[2018-10-21 07:56] LABS: Folate (Folic Acid) 13.1 ng/ml (>5.38)
[2018-10-21 08:23] LABS: Estimated Average Glucose 177 mg/dl; Hemoglobin A1C 7.8 % (4.5-5.6)
[2018-10-21] MEDS ORDERED: DAPTOmycin 500 MG VIAL IV SCH (09:00)
[2018-10-21] MEDS: INSULIN ASPART 100 UNITS/ML 3 ML PEN SC SCH ×4 (09:03→21:52)
[2018-10-21] MEDS: IMIPENEM/CILASTATIN SODIUM 400 MG in DEXTROSE 5% 100 ML IV SCH ×3 (09:13→21:19)
[2018-10-21] MEDS: FERROUS SULFATE 325 MG TAB PO SCH (16:39)
--- NOTE | 2018-10-21 17:25 | Hospitalist Progress Note ---
Date of Service October 21, 2018 Assessment & Plan (1) Acute pyelitis: Has had symptoms of UTI treated with oral cefuroxime for 5 days starting on 10/05 Complaining of UTI symptoms with back pain and anorexia for the last 5 to 7 days Noted to have UTI and CT scan of the abdomen pelvis showed acute pyelitis-renal pyelonephritis and/or hydronephrosis Has been getting intravenous Dapto and Zosyn Await urine and blood culture Clinically a little bit better (2) UTI (urinary tract infection): Recent symptoms of UTI treated with cefuroxime for 5 days As above (3) Anemia: Has chronic anemia likely secondary to iron deficiency Complicated by celiac disease Ferrous sulfate 325 mg twice daily has been started (4) Diabetes mellitus: Has diabetes Continue with diabetic diet he should be gluten-free Sliding scale insulin (5) Celiac disease: Admission to [facility] with acute cholecystitis and GI symptoms Has had EGD and biopsy did show possible celiac disease Serological test for celiac disease came back negative She has not been following any gluten-free diet until now The question of having celiac disease remains uncertain Discussed with the daughter in detail Await blood and urine culture Dending on the sensitivity she may be going home tomorrow with oral antibiotic Subjective 10/21 The patient was seen and examined in medical floor in presence of the daughter She cannot speak any language other than Sinhala She complains to have ongoing tiredness, back pain and dysuria for the last week or so She has had a course of oral antibiotic with cefepime for 5 days beginning on 10/05 Symptoms continued and got worse before this admission Review of Systems Review of Systems: All systems reviewed and are unremarkable except as noted below Constitutional: + chills, + body aches, + fatigue, + malaise, + weakness and + anorexia Physical Exam Physical Exam: Weak and lethargic without any other symptoms Constitutional: + ill appearing; no acute distress Eyes: PERRL, conjunctivae normal, anicteric sclerae ENMT: external ear and nose normal, oropharynx normal Neck: trachea midline, no thyromegaly Respiratory: normal respiratory effort; no respiratory distress Auscultation: lungs clear to auscultation bilaterally Cardiovascular: Rate/Rhythm: regular rate and regular rhythm Gastrointestinal (Abdomen): Inspection/Auscultation: abdomen normal to inspection and normal bowel sounds; abdomen not distended Percussion/Palpation: + abdomen tender (Hypogastrium and left renal angle) and abdomen soft Neurologic: moves all extremities No focal sensory and motor deficit Lymphatic: no cervical or axillary lymphadenopathy Results & Data Vital Signs (Past 12 Hours) Vital Signs Temp Pulse Pulse Resp BP BP Pulse Ox 10/21/18 15:33 36.6 C 83 14 128/75 95 10/21/18 08:01 36.7 C 84 16 115/75 97 Laboratory Results Short CBC 10/20/18 10/21/18 Range/Units 23:31 06:49 WBC 11.21 H 7.06 (4.8-10.8) K/uL Hgb 9.2 L 8.8 L (12.0-16.0) g/dL Hct 27.5 L 27.5 L (37-47) % Plt Count 244 212 (130-400) K/uL BMP 10/20/18 10/21/18 23:31 06:49 Sodium 142 142 Potassium 3.6 3.6 Chloride 105 110 H Carbon Dioxide 27 26 BUN 8 7 Creatinine 0.92 0.74 Glucose 120 H 129 H Calcium 8.8 8.2 L Liver Function 10/20/18 Range/Units 23:31 Total Bilirubin 0.6 (0.2-1) mg/dl AST 19 (15-37) U/L ALT 24 (12-78) U/L Alkaline Phosphatase 101 (45-117) U/L Albumin 3.4 (3.4-5.0) gm/dl Urine 10/20/18 Range/Units 23:05 Urine Color Yellow Urine Appearance Cloudy A (Clear) Urine pH 6.5 (4.5-7.5) Ur Specific [place] 1.010 (1.000-1.030) Urine Protein 2+ H (Negative) Urine Glucose (UA) Negative (Negative) Medications Administered Current Inpatient Medications Acetaminophen (Tylenol) 650 mg PO Q4H PRN PRN Reason: pain/fever Stop: 11/20/18 03:59 Hydrocodone Bitart/Acetaminophen ([place] 5/325) 1 tab PO Q4H PRN PRN Reason: pain Stop: 11/04/18 03:59 Amitriptyline HCl (Elavil) 10 mg PO HS [facility] Stop: 11/20/18 20:59 Dextrose (Dextrose 50%) 25 - 50 ml IV UD PRN; Protocol PRN Reason: Hypoglycemia Protocol Stop: 11/20/18 04:14 Ferrous Sulfate (Feosol) 325 mg PO BIDM [facility] Stop: 11/20/18 16:59 Last Admin: 10/21/18 16:39 Dose: 325 mg Documented by: Fluoxetine HCl (Prozac) 20 mg PO DAILY [facility] Stop: 11/20/18 08:59 Last Admin: 10/21/18 07:36 Dose: 20 mg Documented by: Glucagon (Glucagen) 1 mg SQ UD PRN; Protocol PRN Reason: Hypoglycemia Protocol Stop: 11/20/18 04:14 Glucose (Glucose 40%) 15 - 30 gm PO UD PRN; Protocol PRN Reason: Hypoglycemia Protocol Stop: 11/20/18 04:14 Glucose (Dex4 Glucose) 4 - 8 tabs PO UD PRN; Protocol PRN Reason: Hypoglycemia Protocol Stop: 11/20/18 04:14 Sodium Chloride (Nss 1000ml) 1,000 mls @ 125 mls/hr IV .Q8H [facility] Stop: 11/20/18 03:59 Last Admin: 10/21/18 14:06 Dose: 125 mls/hr Documented by: Imipenem/Cilastatin Sodium 400 (mg/ Dextrose) 108 mls @ 108 mls/hr IV Q6H [facility] Stop: 10/31/18 08:59 Last Infusion: 10/21/18 16:38 Dose: Infused Documented by: Daptomycin 300 mg/ Syringe 6 mls @ 0 mls/min IV Q24H [facility]; Protocol Stop: 10/30/18 01:01 Insulin Aspart (Novolog Flexpen) 0 units SC ACHS [facility] Stop: 11/20/18 07:29 Last Admin: 10/21/18 13:04 Dose: 3 units Documented by: Miscellaneous (Order Awaiting Action) 1 ea N/A QS [facility] Stop: 11/20/18 07:59 Last Admin: 10/21/18 16:38 Dose: Not Given Documented by: Miscellaneous (Carbohydrates For Hypoglycemia) 15 - 30 gm PO UD PRN PRN Reason: Hypoglycemia Treatment Stop: 11/20/18 04:14 Miscellaneous Information (Consult) 1 ea N/A UD PRN PRN Reason: Consult Stop: 11/20/18 04:02 Miscellaneous Information (Consult) 1 ea N/A UD PRN PRN Reason: Consult Stop: 11/20/18 04:07 Olmesartan (Benicar) 40 mg PO QPM [facility] Stop: 11/20/18 20:59 Ondansetron HCl (Zofran Tab) 4 mg PO TID PRN PRN Reason: Nausea Stop: 11/20/18 03:59 Last Admin: 10/21/18 10:53 Dose: 4 mg Documented by: Ondansetron HCl (Zofran) 4 mg IV Q6H PRN PRN Reason: Nausea Stop: 11/20/18 03:59 Pantoprazole Sodium (Protonix) 40 mg PO QAM [facility] Stop: 11/20/18 08:59 Last Admin: 10/21/18 07:36 Dose: 40 mg Documented by: (1) UTI (urinary tract infection) Hematuria presence: without hematuria Urinary tract infection type: site unspecified Qualified Code(s): N39.0 - Urinary tract infection, site not specified (2) Anemia Anemia type: unspecified type Qualified Code(s): D64.9 - Anemia, unspecified
[2018-10-21] MEDS: AMITRIPTYLINE HCL 10 MG TAB PO SCH (21:13)
[2018-10-21] MEDS: OLMESARTAN MEDOXOMIL 40 MG TAB PO SCH (21:13)
[2018-10-22] MEDS ORDERED: DAPTOmycin 300 MG in SYRINGE 0 ML IV SCH (01:00)
[2018-10-22] MEDS: IMIPENEM/CILASTATIN SODIUM 400 MG in DEXTROSE 5% 100 ML IV SCH ×4 (02:38→20:12)
[2018-10-22 05:38] LABS: Hematocrit (blood only) 26.1 % (37-47); Hemoglobin 8.5 g/dL (12.0-16.0); Mean Corpuscular Hgb Conc 32.6 g/dL (32-36); Mean Corpuscular Volume 78.9 fL (80-100); Mean Platelet Volume 10.3 fL (7.4-10.4); Platelet Count 205 K/uL (130-400); RDW Coefficient of Variation 15.3 % (11.5-14.5); RDW Standard Deviation 44.4 fL (36.4-46.3); Red Blood Count 3.31 M/uL (4.2-5.4); White Blood Count 4.69 K/uL (4.8-10.8)
[2018-10-22] MEDS: SODIUM CHLORIDE 0.9% 1000ML 1,000 ML IV SCH ×3 (06:02→22:21)
[2018-10-22 06:06] LABS: BUN Creatinine Ratio 8.8 (10-20); Calcium 8.1 mg/dl (8.5-10.1); Creatinine Clr Calc Pharmacy 84.2 ml/min; Est GFR (African American) 116.1; Est GFR (Non-African American) 100.1; Magnesium 2.1 mg/dl (1.8-2.4); Potassium 3.5 mmol/L (3.5-5.1)
[2018-10-22 06:22] LABS: ALC (manual) 1.75 K/uL (1.2-3.4); Basophils # (manual) 0.08 K/uL (0-0.2); Basophils % (manual) 1.7 %; Eosinophils # (manual) 0.33 K/uL (0-0.5); Lymphocytes # (manual) 1.75 K/uL (1.2-3.4); Lymphocytes % (manual) 37.4 %; Monocytes # (manual) 0.24 K/uL (0.11-0.59); Monocytes % (manual) 5.2 %; Neutrophils % (manual) 48.7 %; RBC Morphology Unremarkable
[2018-10-22] MEDS: FERROUS SULFATE 325 MG TAB PO SCH ×2 (09:00→18:00)
[2018-10-22] MEDS: INSULIN ASPART 100 UNITS/ML 3 ML PEN SC SCH ×4 (09:13→20:14)
[2018-10-22] MEDS: PANTOprazole 40 MG TAB PO SCH (09:14)
[2018-10-22] MEDS: FLUOXETINE HCL 20 MG CAP PO SCH (09:15)
--- NOTE | 2018-10-22 10:48 | Hospitalist Progress Note ---
Date of Service October 22, 2018 Assessment & Plan (1) Acute pyelitis: Has had symptoms of UTI treated with oral cefuroxime for 5 days starting on 10/05 Complaining of UTI symptoms with back pain and anorexia for the last 5 to 7 days Noted to have UTI and CT scan of the abdomen pelvis showed acute pyelitis-renal pyelonephritis and/or hydronephrosis Has been getting intravenous Dapto and Zosyn Await urine and blood culture Clinically a little bit better Remains symptomatic but clinically improved We will continue current medications and await urine culture Stool culture has been pending and C. difficile toxin reordered (2) UTI (urinary tract infection): Recent symptoms of UTI treated with cefuroxime for 5 days As above (3) Anemia: Has chronic anemia likely secondary to iron deficiency Complicated by celiac disease Ferrous sulfate 325 mg twice daily has been started Hemoglobin remains more than 8 Occult stool has been negative (4) Diabetes mellitus: Has diabetes Continue with diabetic diet he should be gluten-free Sliding scale insulin (5) Celiac disease: Admission to [facility] with acute cholecystitis and GI symptoms Has had EGD and biopsy did show possible celiac disease Serological test for celiac disease came back negative She has not been following any gluten-free diet until now The question of having celiac disease remains uncertain Discussed with the daughter in detail Await blood and urine culture Depending on the sensitivity she may be going home tomorrow with oral antibiotic Subjective 10/21 The patient was seen and examined in medical floor in presence of the daughter She cannot speak any language other than [place] She complains to have ongoing tiredness, back pain and dysuria for the last week or so She has had a course of oral antibiotic with cefepime for 5 days beginning on 10/05 Symptoms continued and got worse before this admission 10/22 The patient was seen and examined in medical floor She complains to have abdominal bloating with or without food She has been having a small amount of loose stool Denies any fever and/or chills and he still has some burning with urination Review of Systems Review of Systems: All systems reviewed and are unremarkable except as noted below Constitutional: + chills, + body aches, + fatigue, + malaise, + weakness and + anorexia Physical Exam Physical Exam: No apparent distress at rest Constitutional: + ill appearing; no acute distress Remains generally weak and lethargic Eyes: PERRL, conjunctivae normal, anicteric sclerae ENMT: external ear and nose normal, oropharynx normal Neck: trachea midline, no thyromegaly Respiratory: normal respiratory effort; no respiratory distress Auscultation: lungs clear to auscultation bilaterally Cardiovascular: Rate/Rhythm: regular rate and regular rhythm Gastrointestinal (Abdomen): Inspection/Auscultation: + abdomen distended and normal bowel sounds Percussion/Palpation: + abdomen tender (Hypogastrium and left renal angle) and abdomen soft; no guarding and abdomen not rigid Neurologic: moves all extremities Lymphatic: no cervical or axillary lymphadenopathy Results & Data Vital Signs (Past 12 Hours) Vital Signs Temp Pulse Pulse Resp BP BP Pulse Ox 10/22/18 07:40 37.1 C 78 18 134/78 96 10/21/18 22:50 37.2 C 84 18 132/79 95 Laboratory Results Short CBC 10/22/18 Range/Units 05:19 WBC 4.69 L (4.8-10.8) K/uL Hgb 8.5 L (12.0-16.0) g/dL Hct 26.1 L (37-47) % Plt Count 205 (130-400) K/uL BMP 10/22/18 05:19 Sodium 145 Potassium 3.5 Chloride 113 H Carbon Dioxide 27 BUN 6 L Creatinine 0.66 Glucose 137 H Calcium 8.1 L Medications Administered Current Inpatient Medications Acetaminophen (Tylenol) 650 mg PO Q4H PRN PRN Reason: pain/fever Stop: 11/20/18 03:59 Hydrocodone Bitart/Acetaminophen ([place] 5/325) 1 tab PO Q4H PRN PRN Reason: pain Stop: 11/04/18 03:59 Amitriptyline HCl (Elavil) 10 mg PO HS [facility] Stop: 11/20/18 20:59 Last Admin: 10/21/18 21:13 Dose: 10 mg Documented by: Dextrose (Dextrose 50%) 25 - 50 ml IV UD PRN; Protocol PRN Reason: Hypoglycemia Protocol Stop: 11/20/18 04:14 Ferrous Sulfate (Feosol) 325 mg PO BIDM [facility] Stop: 11/20/18 16:59 Last Admin: 10/22/18 09:00 Dose: 325 mg Documented by: Fluoxetine HCl (Prozac) 20 mg PO DAILY [facility] Stop: 11/20/18 08:59 Last Admin: 10/22/18 09:15 Dose: 20 mg Documented by: Glucagon (Glucagen) 1 mg SQ UD PRN; Protocol PRN Reason: Hypoglycemia Protocol Stop: 11/20/18 04:14 Glucose (Glucose 40%) 15 - 30 gm PO UD PRN; Protocol PRN Reason: Hypoglycemia Protocol Stop: 11/20/18 04:14 Glucose (Dex4 Glucose) 4 - 8 tabs PO UD PRN; Protocol PRN Reason: Hypoglycemia Protocol Stop: 11/20/18 04:14 Sodium Chloride (Nss 1000ml) 1,000 mls @ 125 mls/hr IV .Q8H [facility] Stop: 11/20/18 03:59 Last Infusion: 10/22/18 06:23 Dose: 125 mls/hr Documented by: Imipenem/Cilastatin Sodium 400 (mg/ Dextrose) 108 mls @ 108 mls/hr IV Q6H [facility] Stop: 10/31/18 08:59 Last Infusion: 10/22/18 10:19 Dose: Infused Documented by: Daptomycin 300 mg/ Syringe 6 mls @ 0 mls/min IV Q24H [facility]; Protocol Stop: 10/30/18 01:01 Last Admin: 10/22/18 00:05 Dose: 3 mls/min Documented by: Insulin Aspart (Novolog Flexpen) 0 units SC ACHS [facility] Stop: 11/20/18 07:29 Last Admin: 10/22/18 09:13 Dose: 3 units Documented by: Miscellaneous (Order Awaiting Action) 1 ea N/A QS [facility] Stop: 11/20/18 07:59 Last Admin: 10/22/18 09:42 Dose: Not Given Documented by: Miscellaneous (Carbohydrates For Hypoglycemia) 15 - 30 gm PO UD PRN PRN Reason: Hypoglycemia Treatment Stop: 11/20/18 04:14 Miscellaneous Information (Consult) 1 ea N/A UD PRN PRN Reason: Consult Stop: 11/20/18 04:02 Miscellaneous Information (Consult) 1 ea N/A UD PRN PRN Reason: Consult Stop: 11/20/18 04:07 Olmesartan (Benicar) 40 mg PO QPM [facility] Stop: 11/20/18 20:59 Last Admin: 10/21/18 21:13 Dose: 40 mg Documented by: Ondansetron HCl (Zofran Tab) 4 mg PO TID PRN PRN Reason: Nausea Stop: 11/20/18 03:59 Last Admin: 10/21/18 10:53 Dose: 4 mg Documented by: Ondansetron HCl (Zofran) 4 mg IV Q6H PRN PRN Reason: Nausea Stop: 11/20/18 03:59 Pantoprazole Sodium (Protonix) 40 mg PO QAM [facility] Stop: 11/20/18 08:59 Last Admin: 10/22/18 09:14 Dose: 40 mg Documented by: (1) UTI (urinary tract infection) Hematuria presence: without hematuria Urinary tract infection type: site unspecified Qualified Code(s): N39.0 - Urinary tract infection, site not specified (2) Anemia Anemia type: unspecified type Qualified Code(s): D64.9 - Anemia, unspecified
[2018-10-22] MEDS: OLMESARTAN MEDOXOMIL 40 MG TAB PO SCH (21:57)
[2018-10-22] MEDS: AMITRIPTYLINE HCL 10 MG TAB PO SCH (21:57)
[2018-10-23] MEDS: DAPTOmycin 200 MG in SYRINGE 0 ML IV SCH (00:16)
[2018-10-23] MEDS: IMIPENEM/CILASTATIN SODIUM 400 MG in DEXTROSE 5% 100 ML IV SCH ×4 (02:58→21:07)
[2018-10-23] MEDS: SODIUM CHLORIDE 0.9% 1000ML 1,000 ML IV SCH ×3 (06:38→21:14)
[2018-10-23] MEDS: PANTOprazole 40 MG TAB PO SCH (08:09)
[2018-10-23] MEDS: FLUOXETINE HCL 20 MG CAP PO SCH (08:09)
[2018-10-23] MEDS: FERROUS SULFATE 325 MG TAB PO SCH ×2 (08:09→18:05)
[2018-10-23] MEDS: INSULIN ASPART 100 UNITS/ML 3 ML PEN SC SCH ×4 (08:46→21:08)
[2018-10-23 09:04] LABS: Creatinine Clr Calc Pharmacy 77.2 ml/min; Est GFR (Non-African American) 94.9
[2018-10-23] MEDS ORDERED: ALUMINUM/MAGNESIUM SUSP 30 ML UDC PO PRN (13:37)
[2018-10-23] MEDS: METOPROLOL TARTRATE 25 MG TAB PO SCH ×2 (14:25→21:06)
--- NOTE | 2018-10-23 14:27 | Infectious Disease Consult ---
Date of Consultation October 23, 2018 Assessment & Plan (1) Pyelitis: will change to unasyn for now, can d/c home on po Augmentin 875 bid to complete 14 days. She only had 20,000 gbs in urine culture but was on several days of abx prior to obtaining culture, suspect she would have higher bacterial load if taken off of abx. Additionally, she is symptomatic, with abnormal UA and had fever on admission. ok for d/c from ID standpoint when otherwise stable. History of Present Illness Attending Physician: Vianney Waller MD pt admitted with abd pain radiating to b/l flank. no f/c CT in ER showed b/l pyelitis. Recently hospitalized and underwent cholecystectomy, tolerated well. no RUQ pain currently. daughter present and translates. wbc initially 11, now 4. afebrile since admission, temp 38.4 in ER. creat 0.7. denies dysuria, no frequency, no urgency but has pelvic pressure/pain when urinating in am, denies blood or foul odor, no flank pain currently. Symptoms overall improving. 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 10/20 urine culture is growing 20,000 gbs, no sensitivities. UA >30 wbc +1 bacteria. Dapto added this am and ID consulted for abx approval. Currently she is not eating much, poor appetite but denies n/v/d. no cp, sob, cough, wright. Allergies Allergy/AdvReac Type Severity Reaction Status Date / Time No Known Allergies Allergy Unverified 10/20/18 23:49 Home Medications Home Medications Medication Instructions Recorded Confirmed Type amitriptyline 10 mg PO HS 09/14/18 10/22/18 History bisoprolol fumarate 5 mg PO DAILY 09/14/18 10/22/18 History fluoxetine 20 mg PO DAILY 09/14/18 10/22/18 History lansoprazole 30 mg PO QAM 09/14/18 10/22/18 History olmesartan 40 mg PO QPM 09/14/18 10/22/18 History ondansetron HCl [Zofran] 4 mg PO TID PRN 09/14/18 10/22/18 History sitagliptin-metformin 1 tab PO BIDM 09/14/18 10/22/18 History hydrocodone-acetaminophen [[place]] 1 - 2 tab PO Q4H #15 tab 09/18/18 10/20/18 Rx Domperidone 10 mg PO QAM 10/20/18 10/20/18 History cefixime [Suprax] 200 mg PO Q12H 10/20/18 10/22/18 History Patient History Medical History HTN (hypertension) DVT prophylaxis Diabetes mellitus Depression Transaminitis Encounter for pre-operative examination Abdominal pain Cholecystitis Gallbladder disease (Acute) Hyponatremia (Acute) Anemia (Acute) Abnormal LFTs (Acute) Dehydration (Acute) Thrombocytopenia (Acute) Nausea & vomiting Diabetes Hypertension Surgical History Hx of cholecystectomy S/P laparoscopic cholecystectomy (09/16/18) Laparoscopic cholecystectomy with Cholangiogram 09/16/18 Dr. Lucas H/O esophagogastroduodenoscopy 09/15/18 with MAC Family History Other Diabetes No pertinent family history in first degree relatives Social History Preferred Language: [place] Communication Ability: Effective Communication Tools: IPad and Other Research Professor Of Biostatistics Required: No Beliefs That Will Affect Care: None Current Living Situation: Spouse Feels Safe at Home: Yes Safety Concerns: Feels Safe At This Time Smoking Status: Never smoker Hx Alcohol Use: No Hx Substance Use: No Review of Systems Review of Systems: All systems reviewed & are unremarkable except as noted in HPI & below Physical Exam Constitutional: WD/WN, vitals as above Eyes: PERRL, conjunctivae normal, anicteric sclerae ENMT: external ear and nose normal, oropharynx normal Neck: normal visual inspection Respiratory: normal respiratory effort, lungs clear to auscultation Cardiovascular: RRR, no murmur, no edema Gastrointestinal (Abdomen): normal bowel sounds, soft, nontender, no hepatosplenomegaly Musculoskeletal: no cyanosis or clubbing, extremities motor strength 5/5 Skin: no rashes, warm and dry Psychiatric: A+Ox3, euthymic affect Results & Data Vital Signs (Past 12 Hours) Vital Signs Temp Pulse Resp BP Pulse Ox 08/15/19 08:07 37.3 C 65 16 164/83 H 96 Laboratory Results Microbiology 10/20/18 23:05 Urine,Clean Catch Urine Culture - Final Group B Beta Strep 10/21/18 18:42 Stool Escherichia coli Shiga Toxins Test - Preliminary 10/21/18 18:42 Stool Stool Culture - Preliminary No Salmonella isolated to date, No Shigella isolated to date, No Campylobacter jejuni isolated to date. 10/20/18 23:37 Blood Aerobic Blood Culture - Preliminary No growth in Aerobic bottle after 48 hours. 10/20/18 23:37 Blood Anaerobic Blood Culture - Preliminary No growth in Anaerobic bottle after 48 hours. 10/20/18 23:31 Blood Aerobic Blood Culture - Preliminary No growth in Aerobic bottle after 48 hours. 10/20/18 23:31 Blood Anaerobic Blood Culture - Preliminary No growth in Anaerobic bottle after 48 hours. PG Care Time/CCT Total # of Minutes Spent Total Time Spent with Patient: Total time spent is greater than 50% in coordination of care (as documented) at patient's floor/unit and/or counseling patient:
--- NOTE | 2018-10-23 20:52 | Hospitalist Progress Note ---
Date of Service October 23, 2018 Assessment & Plan (1) Acute pyelitis: Has had symptoms of UTI treated with oral cefuroxime for 5 days starting on 10/05 Complaining of UTI symptoms with back pain and anorexia for the last 5 to 7 days Noted to have UTI and CT scan of the abdomen pelvis showed acute pyelitis-renal pyelonephritis and/or hydronephrosis Has been getting intravenous Dapto and Zosyn Await urine and blood culture Clinically a little bit better Remains symptomatic but clinically improved We will continue current medications and await urine culture Stool culture has been pending and C. difficile toxin reordered Appreciate ID input and recommendation Likely to go home tomorrow on Augmentin for a total of 14 days Abdominal bloating Is a status post laparoscopic cholecystectomy recently Has been on oral iron for chronic anemia Likely secondary to medication and results of cholecystectomy Recent CT scan has been negative Like to be discharged tomorrow morning (2) UTI (urinary tract infection): Recent symptoms of UTI treated with cefuroxime for 5 days As above Minimal hypogastric tenderness and discomfort (3) Anemia: Has chronic anemia likely secondary to iron deficiency Complicated by celiac disease Ferrous sulfate 325 mg twice daily has been started Hemoglobin remains more than 8 Occult stool has been negative (4) Diabetes mellitus: Has diabetes Continue with diabetic diet he should be gluten-free Sliding scale insulin (5) Celiac disease: Admission to [facility] with acute cholecystitis and GI symptoms Has had EGD and biopsy did show possible celiac disease Serological test for celiac disease came back negative She has not been following any gluten-free diet until now The question of having celiac disease remains uncertain Discussed with the daughter in detail Await blood and urine culture Depending on the sensitivity she may be going home tomorrow with oral antibiotic Subjective 10/21 The patient was seen and examined in medical floor in presence of the daughter She cannot speak any language other than [place] She complains to have ongoing tiredness, back pain and dysuria for the last week or so She has had a course of oral antibiotic with cefepime for 5 days beginning on 10/05 Symptoms continued and got worse before this admission 10/22 The patient was seen and examined in medical floor She complains to have abdominal bloating with or without food She has been having a small amount of loose stool Denies any fever and/or chills and he still has some burning with urination 8/15 The patient was seen and examined in medical floor She has been complaining of hypogastric pain and abdominal bloating with epigastric discomfort Denies any fever and/or chills Bowel has been moving but no diarrhea Review of Systems Review of Systems: All systems reviewed and are unremarkable except as noted below Constitutional: + body aches, + fatigue, + weakness and + anorexia Gastrointestinal: + abdominal pain and + bloating; no nausea and no vomiting Physical Exam Physical Exam: Minimal distress at rest due to hypogastric pain Constitutional: + ill appearing; no acute distress Eyes: PERRL, conjunctivae normal, anicteric sclerae ENMT: external ear and nose normal, oropharynx normal Neck: trachea midline, no thyromegaly Respiratory: normal respiratory effort; no respiratory distress Auscultation: lungs clear to auscultation bilaterally Cardiovascular: Rate/Rhythm: regular rate and regular rhythm Gastrointestinal (Abdomen): Inspection/Auscultation: + abdomen distended and normal bowel sounds Percussion/Palpation: + abdomen tender (Hypogastrium ) and abdomen soft; no guarding and abdomen not rigid Neurologic: moves all extremities Lymphatic: no cervical or axillary lymphadenopathy Results & Data Vital Signs (Past 12 Hours) Vital Signs Temp Pulse Resp BP Pulse Ox 10/23/18 15:21 37.0 C 68 16 145/76 H 96 (1) UTI (urinary tract infection) Hematuria presence: without hematuria Urinary tract infection type: site unspecified Qualified Code(s): N39.0 - Urinary tract infection, site not specified (2) Anemia Anemia type: unspecified type Qualified Code(s): D64.9 - Anemia, unspecified
[2018-10-23] MEDS: AMITRIPTYLINE HCL 10 MG TAB PO SCH (21:06)
[2018-10-23] MEDS: OLMESARTAN MEDOXOMIL 40 MG TAB PO SCH (21:06)
[2018-10-24] MEDS: DAPTOmycin 200 MG in SYRINGE 0 ML IV SCH (00:02)
[2018-10-24] MEDS: IMIPENEM/CILASTATIN SODIUM 400 MG in DEXTROSE 5% 100 ML IV SCH ×2 (03:44→09:20)
[2018-10-24 08:04] LABS: Basophils # (auto) 0.03 K/uL (0-0.2); Basophils % (auto) 0.5 %; Eosinophils # (auto) 0.26 K/uL (0-0.5); Eosinophils % (auto) 4.7 %; Hematocrit (blood only) 26.2 % (37-47); Hemoglobin 8.8 g/dL (12.0-16.0); Immature Granulocytes # (auto) 0.01 K/uL (0.00-0.02); Immature Granulocytes % (auto) 0.2 %; Lymphocytes % (auto) 43.6 %; Mean Corpuscular Hgb Conc 33.6 g/dL (32-36); Mean Corpuscular Volume 79.2 fL (80-100); Mean Platelet Volume 10.5 fL (7.4-10.4); Monocytes # (auto) 0.23 K/uL (0.11-0.59); Monocytes % (auto) 4.2 %; Neutrophils # (auto) 2.57 K/uL (1.4-6.5); Neutrophils % (auto) 46.8 %; Platelet Count 226 K/uL (130-400); RDW Coefficient of Variation 15.4 % (11.5-14.5); RDW Standard Deviation 44.5 fL (36.4-46.3); Red Blood Count 3.31 M/uL (4.2-5.4)
[2018-10-24 08:44] LABS: BUN Creatinine Ratio 4.6 (10-20); Calcium 7.9 mg/dl (8.5-10.1); Creatinine Clr Calc Pharmacy 76.2 ml/min; Est GFR (African American) 108.2; Est GFR (Non-African American) 93.4; Magnesium 1.8 mg/dl (1.8-2.4); Potassium 3.4 mmol/L (3.5-5.1)
[2018-10-24] MEDS: METOPROLOL TARTRATE 25 MG TAB PO SCH (09:11)
[2018-10-24] MEDS: PANTOprazole 40 MG TAB PO SCH (09:11)
[2018-10-24] MEDS: FLUOXETINE HCL 20 MG CAP PO SCH (09:11)
[2018-10-24] MEDS: FERROUS SULFATE 325 MG TAB PO SCH ×2 (09:11→17:39)
[2018-10-24] MEDS: INSULIN ASPART 100 UNITS/ML 3 ML PEN SC SCH ×2 (09:26→13:11)
[2018-10-24] MEDS ORDERED: AMOXICILLIN/CLAVULANATE 875 MG TAB PO ONE (11:01)
--- NOTE | 2018-10-24 11:38 | Hospitalist Progress Note ---
Date of Service October 24, 2018 Assessment & Plan (1) Acute pyelitis: Has had symptoms of UTI treated with oral cefuroxime for 5 days starting on 10/05 Complaining of UTI symptoms with back pain and anorexia for the last 5 to 7 days Noted to have UTI and CT scan of the abdomen pelvis showed acute pyelitis-renal pyelonephritis and/or hydronephrosis Has been getting intravenous Dapto and Zosyn Await urine and blood culture Clinically a little bit better Remains symptomatic but clinically improved We will continue current medications and await urine culture Stool culture has been pending and C. difficile toxin reordered Appreciate ID input and recommendation Likely to go home tomorrow on Augmentin for a total of 14 days IV antibiotics have been discontinued Will get Augmentin from today Abdominal bloating Is a status post laparoscopic cholecystectomy recently Has been on oral iron for chronic anemia Likely secondary to medication and results of cholecystectomy Recent CT scan has been negative Has had more pain in the abdomen last night Bowel has not been removed. We will get CT of the abdomen without contrast to rule out an obstruction We will get LFTs Likely to go home this afternoon provided test are negative (2) UTI (urinary tract infection): Recent symptoms of UTI treated with cefuroxime for 5 days As above Minimal hypogastric tenderness and discomfort (3) Anemia: Has chronic anemia likely secondary to iron deficiency Complicated by celiac disease Ferrous sulfate 325 mg twice daily has been started Hemoglobin remains more than 8 Occult stool has been negative Hemoglobin is 8.8 today (4) Diabetes mellitus: Has diabetes Continue with diabetic diet he should be gluten-free Sliding scale insulin (5) Celiac disease: Admission to [facility] with acute cholecystitis and GI symptoms Has had EGD and biopsy did show possible celiac disease Serological test for celiac disease came back negative She has not been following any gluten-free diet until now The question of having celiac disease remains uncertain Discussed with the daughter in detail Await blood and urine culture-negative Will discharge home this afternoon Discussed with the family members Subjective 10/21 The patient was seen and examined in medical floor in presence of the daughter She cannot speak any language other than Ma[place] She complains to have ongoing tiredness, back pain and dysuria for the last week or so She has had a course of oral antibiotic with cefepime for 5 days beginning on 10/05 Symptoms continued and got worse before this admission 10/22 The patient was seen and examined in medical floor She complains to have abdominal bloating with or without food She has been having a small amount of loose stool Denies any fever and/or chills and he still has some burning with urination 10/23 The patient was seen and examined in medical floor She has been complaining of hypogastric pain and abdominal bloating with epigastric discomfort Denies any fever and/or chills Bowel has been moving but no diarrhea 10/24 The patient was seen and examined in medical floor She has had severe abdominal pain last night with some distention but no nausea and/or vomiting Still complains to have some lower abdominal discomfort with distention and the bowel has not moved yet Denies any fever and/or chills Review of Systems Review of Systems: All systems reviewed and are unremarkable except as noted below Constitutional: + body aches, + fatigue, + weakness and + anorexia Gastrointestinal: + abdominal pain and + bloating; no nausea and no vomiting Physical Exam Physical Exam: Reasonably stable without any significant symptoms Constitutional: + ill appearing; no acute distress Eyes: PERRL, conjunctivae normal, anicteric sclerae ENMT: external ear and nose normal, oropharynx normal Neck: trachea midline, no thyromegaly Respiratory: normal respiratory effort; no respiratory distress Auscultation: lungs clear to auscultation bilaterally Cardiovascular: Rate/Rhythm: regular rate and regular rhythm Gastrointestinal (Abdomen): Inspection/Auscultation: + abdomen distended and normal bowel sounds Percussion/Palpation: + abdomen tender (Hypogastrium , no guarding and/or rigidity) and abdomen soft; no guarding and abdomen not rigid Neurologic: moves all extremities Lymphatic: no cervical or axillary lymphadenopathy Results & Data Vital Signs (Past 12 Hours) Vital Signs Temp Pulse Resp BP Pulse Ox 10/24/18 07:45 37.2 C 71 18 134/84 94 Laboratory Results Short CBC 10/24/18 Range/Units 07:36 WBC 5.50 (4.8-10.8) K/uL Hgb 8.8 L (12.0-16.0) g/dL Hct 26.2 L (37-47) % Plt Count 226 (130-400) K/uL BMP 10/24/18 07:36 Sodium 146 H Potassium 3.4 L Chloride 115 H Carbon Dioxide 26 BUN 3 L Creatinine 0.73 Glucose 141 H Calcium 7.9 L Medications Administered Current Inpatient Medications Acetaminophen (Tylenol) 650 mg PO Q4H PRN PRN Reason: pain/fever Stop: 11/20/18 03:59 Last Admin: 10/22/18 20:04 Dose: 650 mg Documented by: Hydrocodone Bitart/Acetaminophen ([place] 5/325) 1 tab PO Q4H PRN PRN Reason: pain Stop: 11/04/18 03:59 Al Hydrox/Mg Hydrox/Simethicone (Maalox) 30 ml PO Q6H PRN PRN Reason: Dyspepsia Stop: 11/22/18 13:36 Amitriptyline HCl (Elavil) 10 mg PO HS [facility] Stop: 11/20/18 20:59 Last Admin: 10/23/18 21:06 Dose: 10 mg Documented by: Amoxicillin/Clavulanate Potassium (Augmentin 875mg) 1 tab PO BIDM [facility] Stop: 11/03/18 16:59 Dextrose (Dextrose 50%) 25 - 50 ml IV UD PRN; Protocol PRN Reason: Hypoglycemia Protocol Stop: 11/20/18 04:14 Ferrous Sulfate (Feosol) 325 mg PO BIDM [facility] Stop: 11/20/18 16:59 Last Admin: 10/24/18 09:11 Dose: 325 mg Documented by: Fluoxetine HCl (Prozac) 20 mg PO DAILY [facility] Stop: 11/20/18 08:59 Last Admin: 10/24/18 09:11 Dose: 20 mg Documented by: Glucagon (Glucagen) 1 mg SQ UD PRN; Protocol PRN Reason: Hypoglycemia Protocol Stop: 11/20/18 04:14 Glucose (Glucose 40%) 15 - 30 gm PO UD PRN; Protocol PRN Reason: Hypoglycemia Protocol Stop: 11/20/18 04:14 Glucose (Dex4 Glucose) 4 - 8 tabs PO UD PRN; Protocol PRN Reason: Hypoglycemia Protocol Stop: 11/20/18 04:14 Insulin Aspart (Novolog Flexpen) 0 units SC ACHS [facility] Stop: 11/20/18 07:29 Last Admin: 10/24/18 09:26 Dose: 7 units Documented by: Metoprolol Tartrate (Lopressor) 25 mg PO BID [facility] Stop: 11/22/18 13:29 Last Admin: 10/24/18 09:11 Dose: 25 mg Documented by: Miscellaneous (Carbohydrates For Hypoglycemia) 15 - 30 gm PO UD PRN PRN Reason: Hypoglycemia Treatment Stop: 11/20/18 04:14 Olmesartan (Benicar) 40 mg PO QPM [facility] Stop: 11/20/18 20:59 Last Admin: 10/23/18 21:06 Dose: 40 mg Documented by: Ondansetron HCl (Zofran Tab) 4 mg PO TID PRN PRN Reason: Nausea Stop: 11/20/18 03:59 Last Admin: 10/21/18 10:53 Dose: 4 mg Documented by: Ondansetron HCl (Zofran) 4 mg IV Q6H PRN PRN Reason: Nausea Stop: 11/20/18 03:59 Last Admin: 10/24/18 00:02 Dose: 4 mg Documented by: Pantoprazole Sodium (Protonix) 40 mg PO QAM [facility] Stop: 11/20/18 08:59 Last Admin: 10/24/18 09:11 Dose: 40 mg Documented by: (1) UTI (urinary tract infection) Hematuria presence: without hematuria Urinary tract infection type: site unspecified Qualified Code(s): N39.0 - Urinary tract infection, site not specified (2) Anemia Anemia type: unspecified type Qualified Code(s): D64.9 - Anemia, unspecified
[2018-10-24 11:42] LABS: Alanine Aminotransferase 110 U/L (12-78); Albumin Level 2.6 gm/dl (3.4-5.0); Alkaline Phosphatase 120 U/L (45-117); Aspartate Aminotransferase 48 U/L (15-37); Bilirubin Direct < 0.1 mg/dl (0-0.2); Bilirubin,Total 0.3 mg/dl (0.2-1); Total Protein 6.6 gm/dl (6.4-8.2)
--- NOTE | 2018-10-24 11:49 | CT Scan Report ---
CT abd pelvis wo con CLINICAL HISTORY: 53 years-old Female presenting with r/o obstruction,hydronephrosis. TECHNIQUE: Multidetector CT of the abdomen and pelvis was performed without the use of intravenous co ntrast. IV contrast: None. One or more dose lowering techniques were used consistent with the princip les of ALARA (as low as reasonably achievable), including automatic exposure control, mA or kV adjust ment to individual patient size, and/or use of iterative reconstruction. COMPARISON: 10/21/2018. CT DOSE (mGy.cm): The estimated cumulative dose is 404.39 mGy.cm. FINDINGS: Services Rep topogram: Cholecystectomy clips. Lung bases: Normal heart size. Interval development of moderate bilateral pleural effusions. Signific ant interlobular septal thickening and patchy groundglass opacity at the lung bases. Liver: Normal morphology. Normal density. Biliary: No gross biliary ductal dilatation allowing for noncontrast technique. Gallbladder surgicall y absent. Pancreas: Normal noncontrast appearance. Spleen: Normal noncontrast appearance. Adrenal glands: Normal noncontrast appearance. Kidneys and ureters: Normal noncontrast appearance of the renal parenchyma. Mild fat infiltration of the renal pelvis on the right. Trace fluid in the right anterior pararenal space. No nephrolithiasis or hydronephrosis. Ureters nondistended. Mild urothelial thickening suggested right greater than left . Bladder: Incompletely evaluated secondary to underdistention. Pelvic organs: Normal noncontrast appearance. Bowel: Normal appendix. No bowel obstruction. Peritoneal cavity: Trace free fluid. No free intraperitoneal gas. Lymph nodes: No gross lymphadenopathy allowing for noncontrast technique. Vasculature: Atherosclerosis of the normal caliber abdominal aorta. Abdominal wall: Trace body wall edema. Musculoskeletal: Normal. IMPRESSION: 1. Mild inflammatory changes along the right renal pelvis and associated with urothelial system, rig ht greater than left. This remains consistent with upper tract urinary infection/pyelitis. 2. No nephrolithiasis or hydronephrosis. 3. Reactive retroperitoneal trace fluid. 4. Interval development of moderate bilateral pleural effusions and significant congestive change wi th mild pulmonary edema at the lung bases. Electronically signed by: Donavan Cazares M.D. 10/24/2018 11:48 AM
[2018-10-24] MEDS ORDERED: FUROSEMIDE 40 MG/4 ML VIAL IV STA (12:36)
[2018-10-24] MEDS ORDERED: POTASSIUM CHLORIDE 20 MEQ TABCR PO ONE (12:45)
[2018-10-24] MEDS ORDERED: FUROSEMIDE 40 MG in SYRINGE 0 ML IV ONE (14:15)
--- NOTE | 2018-10-24 15:58 | Discharge Summary ---
Date of Service October 24, 2018 Admission HPI Per Admitting Provider DICTATED BY: Errol Hemphill MD DATE OF ADMISSION: 10/21/2018 CHIEF COMPLAINT: Right flank pain and groin pain. HISTORY OF PRESENT ILLNESS: This is a 53-year-old female with past medical history significant for diabetes, hypertension, anemia, baseline hemoglobin around 10 as per the patient, depression. She is visiting her daughter's family in [place], she is from [facility].She was admitted on 09/19/2018 for gallbladder disease and status post cholecystectomy at that time and was discharged and has a followup appointment with surgery. At that time, she also had transaminitis which improved, but since the end of September she was having burning micturition and she took cefixime for 5 days which she brought from [facility]. Since then, but on and off, she is having low back pain and flank pain, but yesterday it got worse and she also developed some fever and feeling very weak. Walking a few steps is making her very weak and tired, loss of appetite. She thinks her tongue has become white. Has some mild headache, has some nausea. No vomiting, no chest pain, no shortness of breath, no cough. Has pain in the lower abdomen. No blood in the urine. Normal bowel movements. No blood in the stools or black stools, but since surgery she is having some diarrhea, but lately they are a little worse, says she is having 3 or 4 times of diarrhea. No swelling in the legs. Currently, hemodynamics are stable. Patient does not know Frisian, daughter is the one who translates. Admission Exam Per Admitting Provider GENERAL: The patient is of moderate build, not in acute distress. VITAL SIGNS: Temperature 38.4, pulse 104, blood pressure 128/88, oxygen 98% on room air. HEENT: No pallor, no icterus. Pupils equal, round, and reactive to light. NECK: No JVD, no neck masses, no carotid bruits. CARDIOVASCULAR: S1, S2 heard, regular rate and rhythm, no murmur, no gallop. RESPIRATORY SYSTEM: Normal AP diameter. No accessory muscle use. No wheezing, no crackles. ABDOMEN: Soft, bowel sounds present. Mild discomfort in the hypogastric region and right CVA tenderness present. No guarding, no rigidity, no distention. CENTRAL NERVOUS SYSTEM: Nonfocal. EXTREMITIES: No edema, no erythema. Principal Diagnosis Acute pyelitis, complicated UTI, type 2 diabetes, hypertension, celiac disease, chronic iron deficiency anemia Discharge Exam Constitutional + ill appearing; no acute distress Eyes PERRL, conjunctivae normal, anicteric sclerae ENMT external ear and nose normal, oropharynx normal Neck trachea midline, no thyromegaly Respiratory normal respiratory effort; no respiratory distress Auscultation: lungs clear to auscultation bilaterally Cardiovascular Rate/Rhythm: regular rate and regular rhythm Gastrointestinal (Abdomen) Inspection/Auscultation: + abdomen distended and normal bowel sounds Percussion/Palpation: + abdomen tender (Hypogastrium , no guarding and/or rigidity) and abdomen soft; no guarding and abdomen not rigid Neurologic moves all extremities Lymphatic no cervical or axillary lymphadenopathy Discharge Data Allergies Allergy/AdvReac Type Severity Reaction Status Date / Time No Known Allergies Allergy Unverified 10/20/18 23:49 Consultations 10/21/18 01:23 ED Decision to Admit Stat 10/23/18 11:33 Consult Infectious Diseases Routine Ordered Studies 10/20/18 23:14 CT abd pelvis IV con only Urgent 10/24/18 11:11 CT abd pelvis wo con Routine Hospital Course (1) Acute pyelitis: Has had symptoms of UTI treated with oral cefuroxime for 5 days starting on 10/05 Complaining of UTI symptoms with back pain and anorexia for the last 5 to 7 days Noted to have UTI and CT scan of the abdomen pelvis showed acute pyelitis-renal pyelonephritis and/or hydronephrosis Has been getting intravenous Dapto and Zosyn Await urine and blood culture Clinically a little bit better Remains symptomatic but clinically improved We will continue current medications and await urine culture Stool culture has been pending and C. difficile toxin reordered Appreciate ID input and recommendation Likely to go home tomorrow on Augmentin for a total of 14 days IV antibiotics have been discontinued Will get Augmentin from today Abdominal bloating Is a status post laparoscopic cholecystectomy recently Has been on oral iron for chronic anemia Likely secondary to medication and results of cholecystectomy Recent CT scan has been negative Has had more pain in the abdomen last night Bowel has not been removed. We will get CT of the abdomen without contrast to rule out an obstruction We will get LFTs Likely to go home this afternoon provided test are negative (2) UTI (urinary tract infection): Recent symptoms of UTI treated with cefuroxime for 5 days As above Minimal hypogastric tenderness and discomfort (3) Anemia: Has chronic anemia likely secondary to iron deficiency Complicated by celiac disease Ferrous sulfate 325 mg twice daily has been started Hemoglobin remains more than 8 Occult stool has been negative Hemoglobin is 8.8 today (4) Diabetes mellitus: Has diabetes Continue with diabetic diet he should be gluten-free Sliding scale insulin (5) Celiac disease: Admission to [facility] with acute cholecystitis and GI symptoms Has had EGD and biopsy did show possible celiac disease Serological test for celiac disease came back negative She has not been following any gluten-free diet until now The question of having celiac disease remains uncertain Discussed with the daughter in detail Await blood and urine culture-negative Will discharge home this afternoon Discussed with the family members Total Time Total Time Spent Total Time Spent (In Minutes): 35 minutes Total Time Includes: Examination of the Patient, Discharge Planning, Medication Reconciliation and Communication With Other Providers Discharge Plan Discharge Items Patient Disposition: Home - Self-Care Reason For Visit: BACK PAIN Discharge Diagnosis: Acute pyelitis, complicated UTI, type 2 diabetes, hypertension, celiac disease, chronic iron deficiency anemia Condition: Good Discharge Goals: Decrease discomfort, Improve function, Increase independence and Improve nutritional status Activity: Resume your previous activity Non-emergency contact: Primary Care Provider Call non-emergency contact if: you have any medication questions and your symptoms worsen Follow-up/Referrals: Merle Aceves MD [Physician] - 10/27/18 10:20 am (Please check a comprehensive metabolic panel during this visit.) PCP,NO [Primary Care Provider] - Diet: Carb Consistent or DM2 Addtl Provider Instructions: Follow diabetic diet Try to drink more fluid Completing the course of antibiotic Please have your kidney function, electrolytes and liver function checked during your next visit Prescriptions: New ferrous sulfate 325 mg (65 mg iron) Tablet,Delayed Release (Dr/Ec) 325 mg PO BIDM 30 Days Qty: 60 RF: 0 amoxicillin-pot clavulanate 875-125 mg Tablet 1 tab PO BIDM 9 Days Qty: 18 RF: 0 pantoprazole 40 mg Tablet,Delayed Release (Dr/Ec) 40 mg PO QAM 30 Days Qty: 30 RF: 0 Continued bisoprolol fumarate 5 mg Tablet 5 mg PO DAILY RF: 0 fluoxetine 20 mg Tablet 20 mg PO DAILY RF: 0 lansoprazole 30 mg Capsule,Delayed Release(Dr/Ec) 30 mg PO QAM RF: 0 ondansetron HCl [Zofran] 4 mg Tablet 4 mg PO TID PRN (Reason: Nausea) RF: 0 amitriptyline 10 mg Tablet 10 mg PO HS RF: 0 olmesartan 40 mg Tablet 40 mg PO QPM RF: 0 sitagliptin-metformin 50-1,000 mg Tablet 1 tab PO BIDM RF: 0 hydrocodone-acetaminophen [[place]] 5-325 mg tablet 1 - 2 tab PO Q4H Qty: 15 RF: 0 Domperidone 10 mg PO QAM RF: 0 Suprax 200 mg Tablet,Chewable 200 mg PO Q12H RF: 0 Stand-Alone Forms: [facility] Discharge Orders: Discharge Order (Routine); Ordered 10/24/18 Ordered By: Vianney Waller Admission Data Admit Date/Time: 10/21/18 02:11 Attending Provider: Vianney Waller Admit Provider: Errol Hemphill Primary Care Provider: PCP,NO Other Providers: Errol Hemphill ; Val Martins Service: Medical
[2018-10-24] MEDS ORDERED: AMOXICILLIN/CLAVULANATE 875 MG TAB PO SCH (17:00)
== END 2018-10-24 18:28 | disposition home or self-care (01) | DRG 690 ==
LOC: ED 22:39 → 3W 10-21 02:11